=== PATIENT | female | born 1995 | race Caucasian/White ===

== ENCOUNTER 2018-12-03 01:40 | Emergency (ER) | payer MEDICAID, SELFPAY ==
[2018-12-03 01:42] VITALS: BP 156/119; PULSE 90; RESP 20; TEMP 36.8; O2SAT 95; BMI 38.9
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
--- NOTE | 2018-12-03 02:10 | ED.RN ---
I CALLED THE COUNSELING CENTER & NOTIFIED THE DISASTER RECOVERY COORDINATOR THAT THIS PT IS READY TO BE EVALUATED BY CRISIS. SHE STATED SHE WILL LET AMADO FROM [facility] KNOW.
--- NOTE | 2018-12-03 02:11 | ED.RN ---
DR. HAWKINS SAID PATIENT IS NOT ACTIVELY SUICIDAL AND DOES NOT REQUIRE A SITTER. HE IS GOING TO CONTACT CRISIS.
--- NOTE | 2018-12-03 02:13 | ED.RN ---
AMADO FROM [facility] IS ON HER WAY TO SEE THIS PT NOW.
--- NOTE | 2018-12-03 03:13 | ED.RN ---
AMADO FROM [facility] IS HERE TO SEE THIS PT.
[2018-12-03 04:01] VITALS: BP 113/58; PULSE 81; RESP 18; O2SAT 100
--- NOTE | 2018-12-03 04:02 | ED.RN ---
The crisis counselor released patient to go home with a safety plan. Discharge instructions given prior to discharge.
== END 2018-12-03 04:03 | disposition home or self-care (01) ==
PROVIDERS: Emergency Provider Emergency Medicine
DX: F32.9 Major depressive disorder, single episode, unspecified (principal); F43.12 Post-traumatic stress disorder, chronic; F17.200 Nicotine dependence, unspecified, uncomplicated
CPT/HCPCS: 99283

== ENCOUNTER → 2019-04-02 10:39 | Outpatient (CLI) | payer MEDICAID, SELFPAY ==
[2019-03-31 08:11] VITALS: BMI 39.0
--- NOTE | 2019-04-02 10:44 | RAD_ITS ---
STUDY: X-RAY - LUMBAR SPINE REASON FOR EXAM: Female, 23 years old. Back pain with right leg numbness TECHNIQUE: 5 view(s) of the lumbar spine were obtained. COMPARISON: None FINDINGS: Normal lumbar lordosis. There is no substantial scoliosis. There is a normal alignment of the vertebrae. Normal vertebral bodies and endplates. Normal disc space heights. There is no demonstrated fracture. There is no demonstrated spondylolysis of the pars interarticulares. The soft tissue structures are unremarkable. RAD/L/S Spine Min 4 Views IMPRESSION: Normal x-ray examination of the lumbar spine. Electronically Signed: Edmundo Slater MD (Brooks) at 15:23 EST , Service support ,
== END ==
PROVIDERS: Family Provider Internal Medicine; PCP Internal Medicine; Referring Provider Internal Medicine; Visit Provider Internal Medicine
DX: M54.16 Radiculopathy, lumbar region (principal)
CPT/HCPCS: 72110

== ENCOUNTER → 2019-06-02 10:13 | Outpatient (CLI) | payer MEDICAID, SELFPAY ==
[2019-06-02 09:37] VITALS: BMI 39.0
[2019-06-02 12:17] LABS: Absolute Lymphocyte Count 2.69 X10^3/uL (0.83-4.51); Absolute Neutrophil Count 9.2 X10^3/uL (2.0-7.7); Basophil# 0.05 X10^3/uL; Basophil% 0.4 % (0-1); Eosinophil# 0.07 X10^3/uL; Eosinophils% 0.5 % (0-5); Hematocrit 39.9 % (37-47); Hemoglobin 12.8 g/dL (12.0-15.0); Lymphocyte # 2.69 X10^3/ul (4.0); Lymphocyte % 20.9 % (19-41); Mean Corp Hgb Conc 32.1 g/dL (32-36); Mean Corpuscular Hgb 28.1 pg (27.0-32.0); Mean Corpuscular Volume 87.7 fL (81-99); Mean Platelet Vol. 10.1 fl (6.2-12.0); Monocyte# 0.82 X10^3/uL; Monocyte% 6.4 % (0-10); NRBC Flagged by Analyzer 0 % (0-5); Neutrophil # 9.17 X10^3/uL (2.7-7.7); Neutrophil % 71.4 % (47-70); Platelet Count 386 K/mm3 (150-450); RBC Distribution Width CV 12.8 % (11.6-14.6); RBC Distribution Width SD 41.2 fl (35.1-43.9); Red Blood Count 4.55 M/mm3 (4.2-5.4); White Blood Count 12.9 K/mm3 (4.4-11.0)
[2019-06-02 12:34] LABS: AST(SGOT) 20 U/L (15-37); Alanine Aminotransfer ALT/SGPT 40 U/L (13-56); Albumin, Serum 4.3 g/dL (3.2-5.0); Alkaline Phosphatase 74 U/L (45-117); Anion Gap 6 (5-15); BUN 19 mg/dL (7-18); BUN/Creat Ratio 19.5 RATIO (10-20); Calcium,Total 9.6 mg/dL (8.5-10.1); Chloride 104 mmol/L (98-107); Creatinine, Serum 0.97 mg/dL (0.55-1.02); EST Glomerular Filtration Rate 75 mL/min (>60); Est Glom Filt Rate - Afr Amer 91 mL/min (>60); Globulin 4.4 g/dL (2.2-4.2); Glucose 88 mg/dL (74-106); Potassium 3.6 mmol/L (3.5-5.1); Protein, Total 8.7 g/dL (6.4-8.2); Sodium Level 135 mmol/L (136-145)
== END ==
PROVIDERS: PCP Internal Medicine; Referring Provider Internal Medicine; Visit Provider Internal Medicine
DX: E28.2 Polycystic ovarian syndrome (principal)
CPT/HCPCS: 36415; 80053; 85025

== ENCOUNTER 2019-06-09 17:34 | Emergency (ER) | payer MEDICAID, SELFPAY ==
[2019-06-09 09:34] VITALS: BMI 40.0
[2019-06-09 17:34] VITALS: BP 142/101; PULSE 113; RESP 28; TEMP 36.8; O2SAT 100; BMI 39.9
[2019-06-09 18:43] LABS: Absolute Lymphocyte Count 4.66 X10^3/uL (0.83-4.51); Absolute Neutrophil Count 8.8 X10^3/uL (2.0-7.7); Basophil# 0.06 X10^3/uL; Basophil% 0.4 % (0-1); Eosinophil# 0.15 X10^3/uL; Hematocrit 37.3 % (37-47); Hemoglobin 12.6 g/dL (12.0-15.0); Lymphocyte # 4.66 X10^3/ul (4.0); Lymphocyte % 30.8 % (19-41); Mean Corp Hgb Conc 33.8 g/dL (32-36); Mean Corpuscular Volume 85.7 fL (81-99); Mean Platelet Vol. 9.6 fl (6.2-12.0); Monocyte# 1.44 X10^3/uL; Monocyte% 9.5 % (0-10); NRBC Flagged by Analyzer 0 % (0-5); Neutrophil # 8.75 X10^3/uL (2.7-7.7); Neutrophil % 57.9 % (47-70); POSITIVE MORPHOLOGY YES; Platelet Count 376 K/mm3 (150-450); RBC Distribution Width CV 12.8 % (11.6-14.6); RBC Distribution Width SD 39.7 fl (35.1-43.9); Red Blood Count 4.35 M/mm3 (4.2-5.4); White Blood Count 15.1 K/mm3 (4.4-11.0)
[2019-06-09 18:51] LABS: Differential Indicated SCAN CRITERIA MET
[2019-06-09 18:53] LABS: Anion Gap 8 (5-15); BUN 22 mg/dL (7-18); Calcium,Total 9.9 mg/dL (8.5-10.1); Chloride 106 mmol/L (98-107); Creatinine, Serum 1.05 mg/dL (0.55-1.02); EST Glomerular Filtration Rate 69 mL/min (>60); Est Glom Filt Rate - Afr Amer 83 mL/min (>60); Estimated Creatinine Clearance 78.01 ml/min; Glucose 87 mg/dL (74-106); Potassium 3.5 mmol/L (3.5-5.1); Sodium Level 138 mmol/L (136-145)
[2019-06-09 19:18] LABS: Differential Comment SCANNED
--- NOTE | 2019-06-09 19:22 | ED.DCSUM_ITS ---
History of Present Illness Chief Complaint: Upper Extremity Injury Detail of Chief Complaint: Paresthesias stocking glove distribution mid forearm and mid leg bilaterall Informant: Patient Onset: Weeks Context: Sudden Onset Timing: Intermittent Quality: Pulling sensation Location: Right and left upper and lower extremity distal Current Severity: Mild Maximum Severity: Moderate Worsened by: Nothing Relieved by: Nothing Associated Symptoms: Numbness Narrative: Patient is a 23-year-old woman with history of need for service dog. She presents with numbness in a stocking glove distribution mid right and left forearm to her fingertips and mid and left right calf to her toes. She denies perioral numbness. Denies headache. Denies visual, ocular auditory symptoms. No trouble speech or swallowing. Denies cardiac respiratory symptoms. She denies GI symptoms. She denies symptoms. She denies myalgias or arthralgias. She denies joint swelling. Review of old records indicates no history of MS. Prior similar symptoms: No Recent Illness/Hospitalization: No - Past Medical History (1) Segmental and somatic dysfunction of lumbar region Status: Acute (2) Segmental and somatic dysfunction of thoracic region Status: Acute (3) Frequent headaches Status: Chronic (4) Lumbar radiculopathy Status: Chronic (5) PTSD (post-traumatic stress disorder) Status: Chronic (6) Polycystic ovarian disease Status: Chronic Past Medical History - Allergies and Home Meds Allergies/Adverse Reactions: Allergies Bee Stings Allergy (Mild, Uncoded 06/09/19 17:37) Swelling throat, Hives Primary Care Physician: Gaurav Osuna MD [Primary Care Provider] - Surgical History: noncontributory Lives: Alone Smoking Status: Current every day smoker Alcohol: None Drugs: None Review of Systems General: Denies: Chills, Fever, Sweats Eyes: Denies: Visual changes - bilaterally, Blurred Vision - bilaterally, Diplopia ENT: Denies: Bilateral ear pain, Rhinorrhea, Sore throat Cardiovascular: Denies: Chest pain, Palpitations Respiratory: Denies: Dyspnea, Cough, Dyspnea on exertion Gastrointestinal: Denies: Abdominal pain, Nausea, Vomiting, Diarrhea, Melena, Hematochezia Genitourinary: Denies: Dysuria, Hematuria, Frequency Musculoskeletal: Denies: Myalgias, Arthralgias, Neck pain, Back pain, Swelling, Extremity Pain Skin: Denies: Rash, Wounds Neurological: Reports: Parasthesia, Numbness. Denies: Headache, Weakness Psych: Reports: Anxiety Hematologic: Denies: Easy bruising, Easy bleeding Physical Exam Vital Signs/Narrative: Vital Signs Temp Pulse Resp BP Pulse Ox 06/09/19 17:34 98.3 F 113 H 28 H 142/101 H 100 Inital Vital Signs reviewed: Yes General: Well nourished, Well developed, Obese, No Acute Distress Head: Normocephalic, Atraumatic Eyes: Perrl, EOMI ENT: Moist mucous membranes, No rhinorrhea Neck: Supple, Nontender Cardiovascular: Regular rate, Regular rhythm, No murmurs, Normal S1, Normal S2 Respiratory: No distress, CTA bilaterally, Chest nontender Abdomen: Soft, Nontender, Nondistended, Normal bowel sounds Back: Nontender, Normal Inspection Extremities: Nontender, No edema Skin: Normal color, No rash, No Trauma. Negative for: Cyanosis, Diaphoresis, Jaundice, Rash Neurological: Alert, Oriented x3, Cranial nerves II-XII grossly intact, Normal Strength, Normal Sensation, Normal DTR, Normal Gait Psychological: Depressed Diagnostic/Tx/Re-eval Laboratory Results 06/09/19 06/09/19 18:27 18:27 WBC 15.1 H RBC 4.35 Hgb 12.6 Hct 37.3 MCV 85.7 MCH 29.0 MCHC 33.8 RDW Std Deviation 39.7 RDW Coeff of Jeff 12.8 Plt Count 376 MPV 9.6 Immature Gran % (Auto) 0.400 Neut % (Auto) 57.9 Lymph % (Auto) 30.8 Burnett % (Auto) 9.5 Eos % (Auto) 1.0 Baso % (Auto) 0.4 Absolute Neuts (auto) 8.8 H Absolute Lymphs (auto) 4.66 H Nucleated RBC % 0 Differential Comment SCANNED Sodium 138 Potassium 3.5 Chloride 106 Carbon Dioxide 24.0 Anion Gap 8 BUN 22 H Creatinine 1.05 H Estim Creat Clear Calc 78.01 Est GFR (MDRD) Af Amer 83 Est GFR (MDRD) Non-Af 69 BUN/Creatinine Ratio 21.0 H Glucose 87 Calcium 9.9 White count is elevated with normal differential. This is a nonspecific marker. Electrolyte panel is unremarkable. Creatinine is slightly elevated 1.05. ED Disposition - Plan for ED Patient: Disposition: Home or Assisted Living Diagnosis: Bilateral leg paresthesia, Paresthesia of hand, bilateral Instructions: Paraesthesias Referrals: Gaurav Osuna MD [Primary Care Provider] - 3-5 Days
[2019-06-09 19:55] VITALS: BP 129/78; PULSE 84; RESP 16; O2SAT 100
--- NOTE | 2019-06-09 19:55 | ED.RN ---
THIS NURSE REVIEWED D/C INSTRUCTIONS WITH PT. PT VERBALIZED UNDERSTANDING OF INSTRUCTIONS. IV D/C. IV CATHETER INTACT. PT TOLERATED WELL. PT DENIES FURTHER NEEDS OR QUESTIONS AT THIS TIME.
== END 2019-06-09 19:56 | disposition home or self-care (01) ==
PROVIDERS: Emergency Provider Emergency Medicine; PCP Internal Medicine
DX: R20.2 Paresthesia of skin (principal); E66.9 Obesity, unspecified; E28.2 Polycystic ovarian syndrome; F43.10 Post-traumatic stress disorder, unspecified; M99.02 Segmental and somatic dysfunction of thoracic region; M99.03 Segmental and somatic dysfunction of lumbar region; Z79.899 Other long term (current) drug therapy; F17.200 Nicotine dependence, unspecified, uncomplicated
CPT/HCPCS: 80048; 85025; 99283; A4216

== ENCOUNTER → 2019-06-16 09:47 | Outpatient (CLI) | payer MEDICAID, SELFPAY ==
[2019-06-09 17:34] VITALS: BMI 39.9
--- NOTE | 2019-06-16 09:50 | RAD_ITS ---
STUDY: X-RAY - LEFT WRIST REASON FOR EXAM: Female, 23 years old. left wrist pain and numbness x 1 month TECHNIQUE: 3 view(s) of the wrist were obtained. COMPARISON: None. FINDINGS: Normal visualized distal radius and ulna. Normal radiocarpal articulation. There is a negative ulnar variance. Normal carpal bones. Normal carpal articulations. Normal carpometacarpal articulation of the thumb. Normal second through fifth carpometacarpal articulations. Normal visualized metacarpal bones. The soft tissue structures are unremarkable. RAD/Wrist min 3 Views IMPRESSION: Negative ulnar variance without subcortical sclerosis or scalloping of the radius. Otherwise, normal wrist. Electronically Signed: Trupti Scales MD at 0:04 EST , Service support ,
[2019-06-16 12:38] LABS: CRP 2.96 mg/L (0.0-3.0)
[2019-06-16 15:16] LABS: Rheumatoid Factor < 10.0 IU/mL (<15)
== END ==
PROVIDERS: PCP Internal Medicine; Referring Provider Internal Medicine; Visit Provider Internal Medicine
DX: M25.532 Pain in left wrist (principal); D72.829 Elevated white blood cell count, unspecified; M19.90 Unspecified osteoarthritis, unspecified site
CPT/HCPCS: 36415; 73110; 86140; 86431

== ENCOUNTER 2019-10-16 11:13 | Emergency (ER) | payer MEDICAID, SELFPAY ==
[2019-07-07 09:14] VITALS: BMI 39.9
[2019-10-16 11:14] VITALS: BP 151/111; PULSE 110; RESP 17; TEMP 36.6; O2SAT 97; BMI 39.6
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
--- NOTE | 2019-10-16 11:34 | ED.DCSUM_ITS ---
- ER Visit Summary Date of Service: 10/16/19 Chief Complaint: [Injury to left ankle] History of Present Illness: The patient is a 24 F [presents to the emergency department complaint of left ankle pain that started 2 weeks ago. Patient states that she stood up to walk and when she stepped on her left foot she developed sudden onset of severe pain in her left ankle. She has had pain since that time. She states the pain was okay for a time but became worse over last couple days. She is not sure if she overdid it. Patient has no medical history otherwise.] Physical Examination: [Ankle-patient has diffuse tenderness over the lateral malleolus. No significant swelling. There is no ecchymosis or bruising. There is no pain at the proximal fibular head. There is no pain at the base of the fifth metatarsal. She is neurovascular intact distally.] Test Results: [Rays of the left ankle obtained were normal as read by myself] Emergency Department Course and Treatment: [She was given air splint and crutches.] Treatment Plan: [Advised to follow-up with primary care physician in 5 to 7 days.] Disposition: [Discharged home in stable condition] Impression: [Left ankle sprain] This note was generated with [employer] dictation software. It may contain incorrect words, spelling, and punctuation that were not noted in review of the chart prior to signing ED Disposition - Plan for ED Patient: Instructions: ED Sprain Ankle W X Ray Referrals: Gaurav Osuna MD [Primary Care Provider] - 5-7 Days
== END 2019-10-16 11:52 | disposition home or self-care (01) ==
LOC: ED 11:47
PROVIDERS: Emergency Provider Emergency Medicine; PCP Internal Medicine
DX: S93.402A Sprain of unspecified ligament of left ankle, initial encounter (principal); X58.XXXA Exposure to other specified factors, initial encounter; Y93.9 Activity, unspecified; Y92.9 Unspecified place or not applicable; Z72.0 Tobacco use
CPT/HCPCS: 73610; 99284

== ENCOUNTER 2019-12-05 16:01 | Emergency (ER) | payer MEDICAID, SELFPAY ==
[2019-11-30 16:36] VITALS: BMI 39.6
[2019-12-05 16:03] VITALS: BP 149/111; PULSE 105; RESP 18; TEMP 36.6; O2SAT 98; BMI 41.9
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
[2019-12-05] MEDS: HYDROcodone Bitartrate/Apap 5/325 Tablet PO (19:26)
[2019-12-05] MEDS: Diphth,Pertuss(Acell),Tet Vac 0.5 ML Vial IM (19:27)
[2019-12-05 19:33] VITALS: BP 144/97; PULSE 78; RESP 18; O2SAT 99
== END 2019-12-05 19:35 | disposition home or self-care (01) ==
PROVIDERS: Emergency Provider Emergency Medicine; PCP Internal Medicine
DX: S83.91XA Sprain of unspecified site of right knee, initial encounter (principal); S00.81XA Abrasion of other part of head, initial encounter; S50.02XA Contusion of left elbow, initial encounter; S50.312A Abrasion of left elbow, initial encounter; S80.211A Abrasion, right knee, initial encounter; V19.9XXA Pedal cyclist (driver) (passenger) injured in unspecified traffic accident, initial encounter; Y93.55 Activity, bike riding; Y92.9 Unspecified place or not applicable; E28.2 Polycystic ovarian syndrome; F43.10 Post-traumatic stress disorder, unspecified; F17.200 Nicotine dependence, unspecified, uncomplicated
CPT/HCPCS: 73080; 73562; 90471; 90715; 99283

== ENCOUNTER → 2020-02-01 | Outpatient (CLI) | payer MEDICAID, SELFPAY ==
[2020-02-01 14:49] VITALS: BMI 41.9
[2020-02-01 15:02] LABS: Mucous, Urine 0 SEEN /hpf (<or=2+)
[2020-02-01 17:50] LABS: Color, Urine Yellow (Yellow); Glucose, Dipstick Normal (Normal); Ketone-Dipstick Negative (Negative); Leukocyte Esterase-Dipstick 25 /ul (Negative); Nitrite-Dipstick Negative (Negative); Occult Blood-Urine 250 /ul (Negative); Protein-Dipstick 15 mg/dl (Negative); Specific Gravity, Urine 1.015 (1.002-1.030); Urine Bilirubin Dipstick Negative (Negative); Urine Clarity Clear (Clear); Urine Urobilinogen Normal (Normal)
[2020-02-01 19:03] LABS: Amorphous Sediment 2+ PHOS; Bacteria RARE /hpf (None Seen); Red Blood Cells-Urine 10-25 SEEN /hpf (0-5); Squamous Epithelial Cells - UA 0-5 SEEN /hpf (5-10); White Blood Cells 0-5 SEEN /hpf (0-5)
== END | disposition home or self-care (01) ==
LOC: LABSPEC 15:01
PROVIDERS: PCP Internal Medicine; Referring Provider Internal Medicine; Visit Provider Internal Medicine
DX: R30.0 Dysuria (principal)
CPT/HCPCS: 81001; 87086; 87088

== ENCOUNTER → 2020-06-30 | Outpatient (CLI) | payer MEDICAID, SELFPAY ==
[2020-06-29 18:07] VITALS: BMI 35.2
[2020-06-30 09:40] LABS: Bacteria 0 SEEN /hpf (None Seen); Mucous, Urine 0 SEEN /hpf (<or=2+); Red Blood Cells-Urine 0 SEEN /hpf (0-5)
[2020-06-30 12:17] LABS: Color, Urine Yellow (Yellow); Glucose, Dipstick Normal (Normal); Ketone-Dipstick 5 mg/dl (Negative); Leukocyte Esterase-Dipstick 500 /ul (Negative); Nitrite-Dipstick Positive (Negative); Occult Blood-Urine 50 /ul (Negative); Protein-Dipstick 15 mg/dl (Negative); Specific Gravity, Urine 1.025 (1.002-1.030); Urine Bilirubin Dipstick Negative (Negative); Urine Clarity Cloudy (Clear); Urine Urobilinogen 1 mg/dl (Normal)
[2020-06-30 12:30] LABS: Squamous Epithelial Cells - UA 10-25 SEEN /hpf (5-10); White Blood Cells 5-10 SEEN /hpf (0-5)
[2020-06-30 12:38] LABS: Calcium Oxalate Crystals Ur 4+ /hpf (<or=2+)
[2020-06-30 12:39] LABS: Coarse Granular Cast 0-5 SEEN /lpf (0-5 /lpf)
[2020-06-30 13:58] LABS: Chlamydia Trachomatis by PCR Negative (Negative); Neisserai gonorrhoeae by PCR Negative (Negative); Probe Check PASS; Sample Adequacy Control PASS; Specimen Processing Control PASS; Trichomonas Vag DNA by PCR Negative (Negative)
== END | disposition home or self-care (01) ==
LOC: LABSPEC 09:39
PROVIDERS: PCP Internal Medicine; Referring Provider Internal Medicine; Visit Provider Internal Medicine
DX: R30.0 Dysuria (principal); Z20.2 Contact with and (suspected) exposure to infections with a predominantly sexual mode of transmission
CPT/HCPCS: 81001; 87077; 87086; 87088; 87186; 87491; 87591; 87661

== ENCOUNTER 2021-01-29 18:02 | Emergency (ER) | payer MEDICAID, SELFPAY ==
[2021-01-29 18:03] VITALS: BP 116/87; PULSE 81; RESP 18; TEMP 36.1; O2SAT 97; BMI 165.6
--- NOTE | 2021-01-29 19:55 | CM.ED ---
SOCIAL WORK Referral Source: Triage Nurse, Meena Reason for Consult: Resources- homeless Met with patient in hallway room 2. Introduced role and reason for referral. Patient is currently homeless and believes to have poison oak-rash. Patient has been in contact with a friend who is providing her a place to stay. Patient ride will arrive at hospital at 8:30p. Patient denies any needs at this time. Riddhi Castillo, BRAINER, [employer] WRESTLER
--- NOTE | 2021-01-29 20:13 | EX.ED.DYSGE1 ---
HPI History of Present Illness Chief Complaint: Rash Narrative Narrative: 25-year-old female presenting with concern for poison babar on her fingers. She is currently homeless and living in the [facility]. She feels like she has come in contact with us. She does have vesicles on her fingers and she states that she has been trying Benadryl and calamine lotion. She states she also poured bleach on her hands and this did help short-term. She states she currently does not have insurance and cannot afford her prescription but requests a shot of steroids in order to help bridge her until she can see her primary care. [facility] Medical History Back problem Frequent headaches Polycystic ovarian disease PTSD (post-traumatic stress disorder) Home Medications NK 01/29/21 [History Last Taken Unknown] Allergy/AdvReac Type Severity Reaction Status Date / Time Bee Stings Allergy Mild Swelling Uncoded 01/29/21 19:29 throat, Hives Family History Other Anxiety Arthritis Depression Diabetes Mental disorder Myocardial infarction Suicide attempt Surgical History History of tonsillectomy Social History Smoking Status: Current every day smoker tobacco type: cigarettes quit status: considering quitting counseling given: provider counseling alcohol intake: never substance use type: marijuana what type of physical activity do you participate in: walking frequency: 3-4 times per week ROS ROS ED Constitutional Constitutional ED: Denies chills or fever(s) Eyes Eyes: Denies blurry vision or diplopia ENT ENT ED: Denies rhinorrhea or sore throat Cardiovascular Cardiovascular: Denies chest pain or palpitations Respiratory/Chest Respiratory/Chest: Denies cough, dyspnea or sputum Gastrointestinal Gastrointestinal: Denies abdominal pain, nausea or vomiting Genitourinary Genitourinary ED: Denies dysuria or hematuria Musculoskeletal Musculoskeletal: Denies arthralgias or myalgias Integumentary Reports rash Neurologic Neurologic: Denies headache(s) or paresthesias EXAM Physical Exam Const Vital Signs: 01/29/21 18:03 Temperature 96.9 F L Temperature Source Temporal Pulse Rate 81 Respiratory Rate 18 Blood Pressure 116/87 H Blood Pressure Mean 96 Pulse Ox 97 Oxygen Delivery Method Room Air Positive well nourished General Appearance ED: NAD HEENT Reports moist mucous membranes Negative for trauma Eyes PERRL and EOMs intact bilaterally Resp normal respiratory effort and clear to auscultation bilaterally Cardio regular rate and regular rhythm Neuro oriented x3 and CN's II-XII intact bilaterally Sensorium / Orientation: alert Psych mental status grossly normal Psych Narrative: Erythematous vesicular rash on the fingertips. Inconsistent with cellulitic changes. MDM MDM MDM Narrative Medical decision making narrative: Patient presenting with concern for poison babar dermatitis. The rash on her fingertips does appear to be consistent with this. Patient does not have insurance and cannot afford steroids on an outpatient basis and requests a shot of Kenalog which is provided. She states she will follow up with her PCP when she can afford this and when he has availability. Patient to return precautions. Patient stable for discharge. Pression: 1. Poison babar dermatitis Discharge Plan Triage Chief Complaint: Rash ED Provider: Rl Hand Dx/Rx/DC Orders Instructions: ED Poison [place] Rash Prescriptions: No Action NK RF: 0 Primary Care Provider: Gaurav Osuna Referrals: Gaurav Osuna MD [Primary Care Provider] - Disposition Disposition: Home, Self Care Discharge Date/Time: 01/29/21 20:25
[2021-01-29] MEDS: Triamcinolone Acetonide 40 MG/ML Vial IM (20:25)
== END 2021-01-29 20:25 | disposition home or self-care (01) ==
PROVIDERS: Emergency Provider Student in an Organized Health Care Education/Training Program; PCP Internal Medicine
DX: L23.7 Allergic contact dermatitis due to plants, except food (principal); E28.2 Polycystic ovarian syndrome; F43.10 Post-traumatic stress disorder, unspecified; Z59.0 Homelessness; F17.210 Nicotine dependence, cigarettes, uncomplicated
CPT/HCPCS: 96372; 99282

== ENCOUNTER 2022-11-06 14:38 | Emergency (ER) | payer MEDICAID, SELFPAY ==
[2022-11-06 14:39] VITALS: BP 135/88; PULSE 93; RESP 18; TEMP 36.3; O2SAT 100
[2022-11-06 14:53] VITALS: BMI 37.9
--- NOTE | 2022-11-06 15:09 | ED.VIS.BACK ---
HPI History of Present Illness Chief Complaint: Back Informant: patient Narrative Narrative: Patient states she has felt a subcutaneous cyst, which she is labeling and has never had any imaging or expert evaluation of this, and her right low back for the past 1.5 years. Is always been sore. For the last several days it is a lot more painful and the pain is radiating to the right, toward her hip, nothing down her leg, no fevers or chills, but she is seeking evaluation. PFSH PFSH Medical History Back problem Frequent headaches Polycystic ovarian disease PTSD (post-traumatic stress disorder) Home Medications naproxen 500 mg tablet (Naprosyn) 500 mg PO BID PRN pain #14 tabs 11/06/22 [Rx Last Taken Unknown] sulfamethoxazole 800 mg-trimethoprim 160 mg tablet (Bactrim DS) 1 tab PO Q12H #14 tabs 11/06/22 [Rx Last Taken Unknown] tramadol 50 mg tablet 50 mg PO Q6H PRN pain 3 days #12 tabs 11/06/22 [Rx Last Taken Unknown] Allergy/AdvReac Type Severity Reaction Status Date / Time venom-honey bee Allergy Severe THROAT Verified 11/29/21 14:38 SWELLING, HIVES bupropion [From Wellbutrin] AdvReac Mild Other Verified 11/06/22 14:41 Family History Other Anxiety Arthritis Depression Diabetes Mental disorder Myocardial infarction Suicide attempt Surgical History History of tonsillectomy Social History Smoking Status: Former smoker quit status: considering quitting counseling given: provider counseling alcohol intake: never substance use type: marijuana what type of physical activity do you participate in: walking frequency: 3-4 times per week ROS ROS ED Constitutional Constitutional ED: Denies chills or fever(s) Gastrointestinal Gastrointestinal: Denies abdominal pain, nausea or vomiting Musculoskeletal Musculoskeletal: Reports back pain; Denies extremity pain or neck pain Integumentary Reports as per HPI Neurologic Neurologic: Denies paresthesias or weakness EXAM Physical Exam Const Vital Signs: 11/06/22 14:39 Temperature 97.4 F L Temperature Source Temporal Pulse Rate 93 Respiratory Rate 18 Blood Pressure 135/88 H Blood Pressure Mean 103 Pulse Ox 100 Oxygen Delivery Method Room Air Back/Spine Back/Spine Narrative: Patient is tender right paraspinal lumbar soft tissues at a palpable deep subcutaneous nodule. Patient has been rubbing the overlying skin which is mildly erythematous, it blanches and is not indurated, no fluctuance. Extremity normal to inspection Extremity Narrative: FROM x 4 Neuro oriented x3 and no sensory deficits noted Sensorium / Orientation: alert Motor Exam: strength 5/5 throughout Psych mental status grossly normal Skin no rashes or lesions noted MDM MDM MDM Narrative Medical decision making narrative: Patient's obesity limits the exam here, this palpable nodule feels like it is very deep. My suspicion is that it could be a sebaceous cyst, however not able to rule out a solid soft tissue mass, she would need an MRI which certainly she does not need emergently. Since it is acutely worse and could be a sebaceous cyst that is infected, I told her that other than prescribing her pain medication, I could help by attempting needle aspiration of this, with or without locally injected anesthesia. She declines all of this, and would rather just have something for pain and follow-up with the surgeon which is who I would recommend following up with. I think it would be reasonable to treat her with some antibiotics to see if that helps this so does not get worse. She is comfortable with that plan. Discharge Plan Triage Chief Complaint: Back ED Provider: Waqar Mcintyre Dx/Rx/DC Orders Clinical Impression: Subcutaneous nodule of back Instructions: Epidermoid Cyst Infect Antibiotics Prescriptions: New tramadol 50 mg tablet 50 mg PO Q6H PRN (Reason: pain) 3 Days Qty: 12 0RF naproxen [Naprosyn] 500 mg tablet 500 mg PO BID PRN (Reason: pain) Qty: 14 0RF sulfamethoxazole-trimethoprim [Bactrim DS] 800-160 mg tablet 1 tab PO Q12H Qty: 14 0RF Primary Care Provider: Gaurav Osuna Referrals: Gaurav Osuna MD [Primary Care Provider] - Marco Akers MD [Med Staff - Active Staff] - As soon as possible Disposition Disposition: Home, Self Care
[2022-11-06 15:35] VITALS: RESP 18
== END 2022-11-06 15:44 | disposition home or self-care (01) ==
PROVIDERS: Emergency Provider Emergency Medicine; PCP Internal Medicine; Visit Provider Emergency Medicine
DX: R22.9 Localized swelling, mass and lump, unspecified (principal); Z87.891 Personal history of nicotine dependence
CPT/HCPCS: 99282

== ENCOUNTER 2023-04-08 17:15 | Emergency (ER) | payer SELFPAY ==
[2023-04-08 17:16] VITALS: BP 141/74; PULSE 94; RESP 18; TEMP 36.2; O2SAT 98; BMI 42.5
--- NOTE | 2023-04-08 17:18 | RAD_ITS ---
INDICATION: falll EXAMINATION/TECHNIQUE: X-RAY - LEFT XR Foot Min 3 Views 3 VIEWS COMPARISON: FINDINGS: No acute fracture or dislocation. No destructive bone changes. Joint spaces are well-maintained. Normal alignment. Soft tissues are unremarkable. No radiopaque foreign body or soft tissue gas. RAD/Foot min 3 Views IMPRESSION: Negative. Electronically Signed: Smiley Doyle MD at 18:04 EST Reading Location ID and State: [id number] / Tel , Service support ,
--- NOTE | 2023-04-08 18:01 | EDS_ITS ---
HPI <MOJGAN Negrete - Last Filed: 04/08/23 18:23> History of Present Illness Chief Complaint: Lower Extremity Injury Narrative Narrative: 27-year-old female injured her left foot 2 weeks ago while working at [employer]. There is a metal bar underneath some equipment in her left foot got stuck underneath it causing a crush type injury. She has swelling and pain and is able to ambulate but is concerned it is not getting better after 2 weeks. No weakness or paresthesias. PFS <MOJGAN Negrete - Last Filed: 04/08/23 18:23> [facility] Medical History (Updated 04/08/23 @ 18:07 by MOJGAN Negrete) Back problem Frequent headaches Polycystic ovarian disease PTSD (post-traumatic stress disorder) Home Medications
--- NOTE | 2023-04-08 18:01 | EX.ED.DYSGE1 ---
HPI <MOJGAN Negrete - Last Filed: 04/08/23 18:23> History of Present Illness Chief Complaint: Lower Extremity Injury Narrative Narrative: 27-year-old female injured her left foot 2 weeks ago while working at [employer]. There is a metal bar underneath some equipment in her left foot got stuck underneath it causing a crush type injury. She has swelling and pain and is able to ambulate but is concerned it is not getting better after 2 weeks. No weakness or paresthesias. PFSH <MOJGAN Negrete - Last Filed: 04/08/23 18:23> [facility] Medical History (Updated 04/08/23 @ 18:07 by MOJGAN Negrete) Back problem Frequent headaches Polycystic ovarian disease PTSD (post-traumatic stress disorder) Home Medications naproxen 500 mg tablet (Naprosyn) 500 mg PO BID PRN pain #14 tabs 11/06/22 [Rx Last Taken Unknown] sulfamethoxazole 800 mg-trimethoprim 160 mg tablet (Bactrim DS) 1 tab PO Q12H #14 tabs 11/06/22 [Rx Last Taken Unknown] tramadol 50 mg tablet 50 mg PO Q6H PRN pain 3 days #12 tabs 11/06/22 [Rx Last Taken Unknown] Allergy/AdvReac Type Severity Reaction Status Date / Time venom-honey bee Allergy Severe THROAT Verified 04/08/23 17:16 SWELLING, HIVES bupropion [From Wellbutrin] AdvReac Mild Other Verified 04/08/23 17:16 Family History Other Anxiety Arthritis Depression Diabetes Mental disorder Myocardial infarction Suicide attempt Surgical History History of tonsillectomy Social History Smoking Status: Former smoker quit status: considering quitting counseling given: provider counseling alcohol intake: never substance use type: marijuana what type of physical activity do you participate in: walking frequency: 3-4 times per week ROS <MOJGAN Negrete - Last Filed: 04/08/23 18:23> ROS ED ROS Narrative Neuro: Negative for motor/sensory dysfunction. Skin: Negative for wound. Musc: Positive for left foot pain, swelling, trauma. EXAM <MOJGAN Negrete - Last Filed: 04/08/23 18:23> Physical Exam Narrative Exam Narrative: CONST: Patient sitting in no acute distress. EYES: Normal inspection. NECK: Normal inspection. SKIN: Color normal, no rash, warm, dry, intact. EXTREMITIES: Bruising and tenderness over the left fourth and fifth metatarsals, no tenderness of the knee or ankle. Full range of motion of all joints, normal strength and sensation, 2+ DP pulse, brisk cap refill. NEURO: Oriented x4. PSYCH: Normal affect. Const Vital Signs: 04/08/23 17:16 04/08/23 18:43 Temperature 97.1 F L Temperature Source Temporal Pulse Rate 94 Respiratory Rate 18 14 Blood Pressure 141/74 H Blood Pressure Mean 96 Pulse Ox 98 Oxygen Delivery Method Room Air <Dr. Brian Martinez, - Last Filed: 04/08/23 23:02> Physical Exam Const Vital Signs: 04/08/23 17:16 04/08/23 18:43 Temperature 97.1 F L Temperature Source Temporal Pulse Rate 94 Respiratory Rate 18 14 Blood Pressure 141/74 H Blood Pressure Mean 96 Pulse Ox 98 Oxygen Delivery Method Room Air MDM <MOJGAN Negrete - Last Filed: 04/08/23 18:23> [facility] Narrative Medical decision making narrative: Patient injured her left foot 2 weeks ago. She has tenderness and bruising of the mid/lateral foot. No ankle tenderness. Full range of motion and neurovascularly intact. Differential includes foot contusion versus fracture. X-ray is negative for acute findings. I recommended RICE protocol and OTC pain relievers and she was discharged in stable condition. Radiography Diagnostic Testing: Clinical Impression(s) from Imaging Studies Foot X-Ray 04/08/23 17:18 IMPRESSION: Negative. Electronically Signed: Smiley Doyle MD at 18:04 EST Reading Location ID and State: [id number] / Tel , Service support , ED attending interpretation of left foot shows no fracture or dislocation. <Dr. Brian Martinez DO - Last Filed: 04/08/23 23:02> [facility] Radiography Diagnostic Testing: Clinical Impression(s) from Imaging Studies Foot X-Ray 04/08/23 17:18 IMPRESSION: Negative. Electronically Signed: Smiley Doyle MD at 18:04 EST , Treatment and Re-Evaluation :: ED attending note: I evaluated the patient in conjunction with the GERMAN. I agree with his/her statements and above findings. I have personally performed a face to face assessment of the patient and have reviewed the GERMAN Note. I performed a substantive portion of the visit including all aspects of the following. I personally saw the patient performed chart review, physical exam, reviewed labs, imaging (if obtained), and formulated a treatment and management plan. Brief history: 27-year-old female with concern for left foot injury Exam: Nursing triage notes reviewed, Vital signs reviewed Constitutional: please see mdm Extremities: No edema no obvious deformity Neuro: Intact sensation L1-S1 dermatomal distributions. Intact 5/5 strength in hip flexion (T12-L3). Knee extension (L2-L4). Ankle dorsiflexion (L4-L5). Ankle plantar flexion (S1). Great toe extension (L5). 2+ patellar and Achilles DTRs. Skin: No rno evidence of open fracture MDM/plan: Chief Complaint: Foot injury External records reviewed: No recent advanced imaging of the involved extremity Factors affecting care: None MDM narrative: Patient was hemodynamically stable, afebrile, nontoxic-appearing. Exam without evidence of deformity or open fracture. I considered the following differential diagnosis: X-ray rule out fracture dislocation X-ray was interpreted by myself showed no evidence of acute fracture or dislocation. Shared decision making: I will have a discussion with the patient and or visitors regarding risk/benefits of further testing or admission. They will be made aware of of the risk/benefits inherent in this decision they will be given the opportunity to voice understanding. Discharge Plan Triage Chief Complaint: Lower Extremity Injury ED Midlevel Provider: Alma Curtis ED Provider: Brian Martinez Dx/Rx/DC Orders Clinical Impression: Contusion of left foot Instructions: Bruises (Contusions) Prescriptions: No Action tramadol 50 mg tablet 50 mg PO Q6H PRN (Reason: pain) 3 Days Qty: 12 0RF naproxen [Naprosyn] 500 mg tablet 500 mg PO BID PRN (Reason: pain) Qty: 14 0RF sulfamethoxazole-trimethoprim [Bactrim DS] 800-160 mg tablet 1 tab PO Q12H Qty: 14 0RF Primary Care Provider: Gaurav Osuna Referrals: Gaurav Osuna MD [Primary Care Provider] - Activity Restrictions/Additional Instructions: Rest, ice, elevate your foot and take Tylenol or Motrin as needed. Follow-up with your primary care doctor if it is not improving. Disposition Disposition: Home, Self Care Discharge Date/Time: 04/08/23 18:44
[2023-04-08 18:43] VITALS: RESP 14
== END 2023-04-08 18:44 | disposition home or self-care (01) ==
LOC: ED 18:34
PROVIDERS: Emergency Provider Emergency Medicine; PCP Internal Medicine; Visit Provider Emergency Medicine
DX: S90.32XA Contusion of left foot, initial encounter (principal); Z87.891 Personal history of nicotine dependence; W23.1XXA Caught, crushed, jammed, or pinched between stationary objects, initial encounter; Y93.89 Activity, other specified; Y92.89 Other specified places as the place of occurrence of the external cause
CPT/HCPCS: 73630; 99282

== ENCOUNTER 2023-04-27 06:46 | Emergency (ER) | payer OTHER, SELFPAY ==
[2023-04-27 06:48] VITALS: BP 107/59; PULSE 110; RESP 19; TEMP 38.2; O2SAT 98; BMI 42.6
--- NOTE | 2023-04-27 07:06 | EX.ED.DYSGE1 ---
HPI History of Present Illness Chief Complaint: General Illness Detail of Chief Complaint: Fever and cough and sore throat Informant: patient Narrative Narrative: Patient presents with 2-day history of fever, cough, and sore throat. She complains of some bodyaches and pressure in her chest. Patient currently at a group home where another individual was known to have COVID. Patient believes she might have COVID or strep. She had her tonsils removed in the past. Patient has not taken any ibuprofen or Tylenol. PFSH PFS Medical History (Updated 04/27/23 @ 08:[address] Sally Coronado DO) Back problem Frequent headaches Polycystic ovarian disease PTSD (post-traumatic stress disorder) Home Medications NK 04/27/23 [History Last Taken Unknown] Allergy/AdvReac Type Severity Reaction Status Date / Time venom-honey bee Allergy Severe THROAT Verified 04/27/23 06:51 SWELLING, HIVES bupropion [From Wellbutrin] AdvReac Mild Other Verified 04/27/23 06:51 Family History Other Anxiety Arthritis Depression Diabetes Mental disorder Myocardial infarction Suicide attempt Surgical History History of tonsillectomy Social History Smoking Status: Former smoker quit status: considering quitting counseling given: provider counseling alcohol intake: never substance use type: marijuana what type of physical activity do you participate in: walking frequency: 3-4 times per week ROS ROS ED Review of Systems ROS Unobtainable: other Constitutional Constitutional ED: Reports fever(s) and lethargy; Denies chills, sweats or weight loss Eyes Eyes: Denies blurry vision, change in vision or diplopia ENT ENT ED: Reports sore throat; Denies rhinorrhea Cardiovascular Cardiovascular: Denies chest pain, orthopnea or racing heartbeat Respiratory/Chest Respiratory/Chest: Denies cough, dyspnea, dyspnea on exertion, orthopnea or sputum Gastrointestinal Gastrointestinal: Denies abdominal pain, diarrhea, nausea or vomiting Genitourinary Genitourinary ED: Denies dysuria, hematuria or urinary frequency Musculoskeletal Musculoskeletal: Denies arthralgias, back pain, myalgias or neck pain Integumentary Denies abscess, Abrasions or rash Neurologic Neurologic: Denies headache(s) or weakness Psychiatric Psychiatric: Denies anxiety, depression or suicidal thoughts Endocrine Endocrinology: Denies polydipsia, polyphagia or polyuria Hematologic/Lymphatic Hematologic/Lymphatic: Denies easy bleeding, easy bruising or lymphadenopathy Allergic/Immunologic Allergic/Immunologic ED: Denies mouth swelling, tongue swelling or urticaria EXAM Physical Exam Const Vital Signs: 04/27/23 06:48 04/27/23 06:50 Temperature 100.8 F H Temperature Source Oral Pulse Rate 110 H Respiratory Rate 19 H Respiratory Pattern Normal Blood Pressure 107/59 L Blood Pressure Mean 75 Pulse Ox 98 Oxygen Delivery Method Room Air Positive well nourished and well developed General Appearance ED: well developed and NAD HEENT Reports TM's clear and moist mucous membranes normocephalic and atraumatic; Negative for trauma or tenderness Tympanic Membrane ED: Yes TM's clear Eyes PERRL and EOMs intact bilaterally General Eye ED: Negative for pale conjunctiva or scleral icterus Neck no lymphadenopathy, supple and no JVD General: Negative for tenderness Chest Wall inspection of chest normal and palpation of chest normal Chest: Negative for tenderness Resp normal respiratory effort and clear to auscultation bilaterally Effort and Inspection: Negative for respiratory distress or pain with movement Auscultation: Negative for rhonchi, wheezes or diminished lung sounds Cardio regular rate, regular rhythm, S1 normal heart sound, S2 normal heart sound and no murmurs Peripheral Pulses: pulses 2+ throughout GI normal to inspection, nondistended, normoactive bowel sounds, soft to palpation, non-tender, non-distended and no masses Back/Spine no CVA tenderness and no thoracic nor lumbar tenderness Extremity normal to inspection General Extremety ED: Negative for edema General Extremity: Negative for edema Neuro oriented x3, CN's II-XII intact bilaterally, no sensory deficits noted and gait normal Sensorium / Orientation: awake, alert, oriented to person, oriented to place and oriented to time Motor Exam: strength 5/5 throughout and strength abnormal Psych mental status grossly normal Skin no rashes or lesions noted and no wounds MDM MDM MDM Narrative Medical decision making narrative: Patient presents with URI symptoms and recent exposure to COVID-19. Clinically she looks well. I did give her ibuprofen. COVID and flu testing was obtained which showed patient to be positive for COVID-19. Patient will be discharged home and recommended symptomatic relief of symptoms. Advised to follow-up with primary care physician as needed and to return if increased difficulty breathing or condition should worsen anyway. Lab Data Attestation: I reviewed the patient's lab results. Discharge Plan Triage Chief Complaint: General Illness ED Provider: Sally Coronado Dx/Rx/DC Orders Clinical Impression: COVID-19 Instructions: Caring for Someone Who Has COVID-19 Prescriptions: No Action NK Primary Care Provider: Gaurav Osuna Referrals: Gaurav Osuna MD [Primary Care Provider] - 5-7 Days Disposition Disposition: Home, Self Care Discharge Date/Time: 04/27/23 08:32
[2023-04-27] MEDS: Ibuprofen 400 MG Tablet 800 MG PO (07:09)
== END 2023-04-27 08:32 | disposition home or self-care (01) ==
PROVIDERS: Emergency Provider Emergency Medicine; PCP Internal Medicine; Visit Provider Emergency Medicine
DX: U07.1 COVID-19 (principal); Z87.891 Personal history of nicotine dependence
CPT/HCPCS: 87428; 99282

== ENCOUNTER 2023-05-02 10:12 | Emergency (ER) | payer MEDICAID, SELFPAY ==
[2023-05-02 10:13] VITALS: BP 144/86; PULSE 97; RESP 22; TEMP 35.6; O2SAT 98; BMI 42.8
--- NOTE | 2023-05-02 11:08 | EX.ED.DYSGE1 ---
HPI History of Present Illness Chief Complaint: Cough Informant: patient Narrative Narrative: 27-year-old female presenting to the emergency room with cough. Patient states that last Friday she felt ill on Friday was diagnosed with COVID-19. She states that she should have been read returning to work today but she continues to have intermittent fever. She notes continued cough with sputum production. 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 PFSH PFSH Medical History Back problem Frequent headaches Polycystic ovarian disease PTSD (post-traumatic stress disorder) Home Medications NK 04/27/23 [History Last Taken Unknown] Allergy/AdvReac Type Severity Reaction Status Date / Time venom-honey bee Allergy Severe THROAT Verified 04/27/23 06:51 SWELLING, HIVES bupropion [From Wellbutrin] AdvReac Mild Other Verified 04/27/23 06:51 Family History Other Anxiety Arthritis Depression Diabetes Mental disorder Myocardial infarction Suicide attempt Surgical History History of tonsillectomy Social History Smoking Status: Former smoker quit status: considering quitting counseling given: provider counseling alcohol intake: never substance use type: marijuana what type of physical activity do you participate in: walking frequency: 3-4 times per week ROS ROS ED Constitutional Constitutional ED: Reports chills and fever(s); Denies weight loss Eyes Eyes: Denies change in vision or diplopia ENT ENT ED: Reports rhinorrhea; Denies ear pain or sore throat Cardiovascular Cardiovascular: Denies chest pain, orthopnea, palpitations or racing heartbeat Respiratory/Chest Respiratory/Chest: Reports cough; Denies dyspnea or orthopnea Gastrointestinal Gastrointestinal: Denies abdominal pain, diarrhea, nausea or vomiting Genitourinary Genitourinary ED: Denies dysuria, hematuria or urinary frequency Musculoskeletal Musculoskeletal: Reports myalgias; Denies arthralgias or back pain Integumentary Denies abscess or rash Neurologic Neurologic: Denies headache(s) or weakness Psychiatric Psychiatric: Denies anxiety, depression, suicidal ideation or suicidal thoughts Endocrine Endocrinology: Denies polydipsia, polyphagia or polyuria Allergic/Immunologic Allergic/Immunologic ED: Denies mouth swelling, tongue swelling or urticaria EXAM Physical Exam Const Vital Signs: 05/02/23 10:13 05/02/23 10:50 Temperature 96.0 F L Temperature Source Temporal Pulse Rate 97 Respiratory Rate 22 H Respiratory Effort Short of Breath Respiratory Depth Normal Respiratory Pattern Normal Blood Pressure 144/86 H Blood Pressure Mean 105 Pulse Ox 98 Oxygen Delivery Method Room Air Positive well nourished, well developed and obese General Appearance ED: well developed Nutritional Appearance: obese HEENT Reports normocephalic, head/scalp atraumatic and moist mucous membranes HEENT Narrative: Mild turbinate congestion Eyes PERRL and EOMs intact bilaterally Neck no lymphadenopathy, supple and no JVD Resp normal respiratory effort and clear to auscultation bilaterally Resp Narrative: Moist cough occasionally productive lungs otherwise clear. Cardio regular rate, regular rhythm and no murmurs GI normal to inspection, nondistended, normoactive bowel sounds and non-tender Palpation: soft Back/Spine no CVA tenderness and normal ROM Extremity normal to inspection General Extremety ED: Negative for edema General Extremity: Negative for edema Neuro oriented x3 and CN's II-XII intact bilaterally Sensorium / Orientation: alert Motor Exam: strength 5/5 throughout Psych mental status grossly normal Mood & Affect: Negative for depressed or tearful Skin no rashes or lesions noted and no wounds MDM MDM MDM Narrative Medical decision making narrative: My independent interpretation of the two-view chest x-ray is no acute infiltrate. Clinically I think the patient still has COVID-19. Given the continued fever and cough would recommend continued isolation. I will write her a work note. Return if worsening or concerns Discharge Plan Triage Chief Complaint: Cough ED Provider: Everton Marquez Dx/Rx/DC Orders Prescriptions: No Action NK Primary Care Provider: Gaurav Osuna Referrals: Gaurav Osuna MD [Primary Care Provider] -
--- NOTE | 2023-05-02 11:12 | RAD_ITS ---
STUDY: X-RAY CHEST REASON FOR EXAM: Female, 27 years old. Cough TECHNIQUE: PA and lateral views of the chest. COMPARISON: None. FINDINGS: The lungs are clear and expanded. There is no demonstrated pleural abnormality. Normal size heart. Normal mediastinum and aniket. Normal visualized pulmonary arteries. Normal visualized aortic arch and descending thoracic aorta. Normal visualized thoracic spine. Normal visualized ribs, clavicles, and shoulders. There is no demonstrated abnormality of the visualized soft tissue structures of the upper abdomen. RAD/Chest PA and Lateral IMPRESSION: Normal x-ray examination of the chest. Electronically Signed: Lucas Davidson MD at 12:09 [facility] [[email or web address]] ,
[2023-05-02 11:56] VITALS: PULSE 89; RESP 18; O2SAT 98
== END 2023-05-02 11:57 | disposition home or self-care (01) ==
LOC: ED 11:01
PROVIDERS: Emergency Provider Emergency Medicine; PCP Internal Medicine; Visit Provider Emergency Medicine
DX: R05.9 Cough, unspecified (principal); R50.9 Fever, unspecified; E66.9 Obesity, unspecified; Z87.891 Personal history of nicotine dependence
CPT/HCPCS: 71046; 99282

== ENCOUNTER 2023-06-11 12:42 | Emergency (ER) | payer MEDICAID, SELFPAY ==
[2023-06-11 12:43] VITALS: BP 134/77; PULSE 124; RESP 20; TEMP 38.1; O2SAT 99; BMI 43.1
[2023-06-11 15:43] VITALS: RESP 17; O2SAT 99
--- NOTE | 2023-06-11 15:45 | EX.ED.VIS.UR ---
HPI HPI - URI History of Present Illness Chief Complaint: Cold Sx Detail of Chief Complaint: Cough of white phlegm for last 3 days. Subjective fever and chills. Informant: patient Onset/Context/Timing Onset: Days Context: Gradual Onset Timing: Continuous Current Severity: Mild Maximum Severity: Mild Associated Symptoms Associated Symptoms: Positive for Nasal Congestion, Myalgias and Productive Cough (White phlegm.) Narrative Narrative: 27-year-old healthy female history of PTSD. Said a productive cough of white phlegm for the last 3 days. Subjective fever and chills. Posttussive emesis. No diarrhea. No nausea abdominal pain. No dysuria. [facility] and said there has been other people there with URI symptoms. Prior similar symptoms: Yes Recent Illness/Hospitalization: No ROS ROS ED ROS Narrative Cough. Subjective fever and chills. Review of Systems ROS Unobtainable: Denies due to encephalopathy Constitutional Constitutional ED: Reports chills, fever(s) and subjective Eyes Eyes: Denies blurry vision ENT ENT ED: Denies ear pain Cardiovascular Cardiovascular: Denies chest pain Respiratory/Chest Respiratory/Chest: Reports cough; Denies dyspnea Gastrointestinal Gastrointestinal: Denies abdominal pain, constipation, diarrhea or melena Genitourinary Genitourinary ED: Denies dysuria or hematuria Musculoskeletal Musculoskeletal: Reports myalgias; Denies arthralgias, back pain or neck pain Integumentary Denies abscess or Abrasions Neurologic Neurologic: Denies headache(s) Psychiatric Psychiatric: Denies anxiety or depression Endocrine Endocrinology: Denies cold intolerance Hematologic/Lymphatic Hematologic/Lymphatic: Denies easy bleeding, easy bruising or lymphadenopathy Allergic/Immunologic Allergic/Immunologic ED: Denies mouth swelling, tongue swelling or urticaria [facility] Medical History (Updated 06/11/23 @ 16:[address] Juan Ferreira MD) Back problem Frequent headaches Polycystic ovarian disease PTSD (post-traumatic stress disorder) Home Medications NK 04/27/23 [History Last Taken Unknown] Allergy/AdvReac Type Severity Reaction Status Date / Time venom-honey bee Allergy Severe THROAT Verified 06/11/23 12:42 SWELLING, HIVES bupropion [From Wellbutrin] AdvReac Mild Other Verified 06/11/23 12:42 Family History Other Anxiety Arthritis Depression Diabetes Mental disorder Myocardial infarction Suicide attempt Surgical History History of tonsillectomy Social History Smoking Status: Former smoker quit status: considering quitting counseling given: provider counseling alcohol intake: never substance use type: marijuana what type of physical activity do you participate in: walking frequency: 3-4 times per week EXAM Physical Exam Narrative Exam Narrative: Well-appearing 27-year-old female. Vital signs stable she does have a low-grade fever 100.6. Pulse ox 9 9% on room air no signs hypoxia. She does not look septic or toxic. She is not distress. H EENT exam moist mucous membranes. Posterior pharynx normal. Prior tonsillectomy. TMs normal. Neck nontender no lymphadenopathy no meningismus. Lungs dry cough no rales, rhonchi or wheezing. Equal symmetrical. Heart tachycardic no murmur. Rate about 115. Chest wall nontender. Abdomen soft nontender. Moving all 4 extremities. Multiple tattoos. No rashes. Back nontender. Neurologically she is awake and alert with no focal motor deficits. Exam consistent with a viral syndrome. Const Vital Signs: 06/11/23 12:43 06/11/23 15:43 06/11/23 15:44 Temperature 100.6 F H Temperature Source Temporal Pulse Rate 124 H Respiratory Rate 20 H 17 Respiratory Effort Normal Non-Labored Respiratory Pattern Normal Blood Pressure 134/77 H Blood Pressure Mean 96 Pulse Ox 99 99 Oxygen Delivery Method Room Air Room Air Positive well nourished and well developed; Negative for cachectic or contractures General Appearance ED: well developed and NAD; Negative for cachectic, contractures, cyanotic, diaphoretic or pallor Nutritional Appearance: Negative for cachectic HEENT Reports moist mucous membranes; Denies dry mucous membranes normocephalic and atraumatic; Negative for scalp tenderness Face and Sinus: Negative for sinus tenderness Mouth ED: No dry mucous membranes Mouth: No dry mucous membranes Teeth and Gingiva: Negative for caries Throat: posterior oropharynx normal Eyes PERRL and EOMs intact bilaterally General Eye ED: Negative for pale conjunctiva or scleral icterus Neck no lymphadenopathy, supple, no meningeal signs and no JVD General: Negative for anterior neck swelling, lymphadenopathy or other Resp normal respiratory effort and clear to auscultation bilaterally Effort and Inspection: Negative for retractions Auscultation: Negative for rales, rhonchi or wheezes Cardio S1 normal heart sound, S2 normal heart sound and no murmurs Rate: tachycardic Rhythm: regular rhythm GI non-tender, non-distended and no masses Inspection: Negative for abdominal distention Auscultation: normoactive bowel sounds Palpation: soft; Negative for tender or guarding Back/Spine no CVA tenderness and normal ROM General Back: Negative for CVA tenderness Cervical Spine: Negative for cervical spine tenderness Thoracic Spine / Upper Back: Negative for thoracic spinal tenderness Lumbar Spine / Lower Back: Negative for lumbar spinal tenderness Sacrum: Negative for tenderness Extremity normal to inspection and full ROM General Extremety ED: Negative for cyanosis, tenderness or other findings General Extremity: Negative for cyanosis or other findings Neuro oriented x3 and CN's II-XII intact bilaterally Sensorium / Orientation: alert, oriented to person, oriented to place and oriented to time; Negative for orientation impaired, lethargic or stuporous Motor Exam: strength 5/5 throughout; Negative for general weakness or strength abnormal Psych mental status grossly normal Appearance: Negative for other Attitude: No agitated Mood & Affect: Negative for depressed, anxious or tearful Skin General Skin Exam: Negative for jaundice or pallor Lesions: no lesions Rashes: no rashes Trauma: Negative for abrasion MDM MDM MDM Narrative Medical decision making narrative: 27-year-old female URI symptoms I do not like she is a chest x-ray I do not hear any pneumonia. Show given Tylenol for her fever and COVID, flu RSV is being obtained. Repeat exam unchanged we discussed her influenza B diagnosis. Discharged home. Fluids and rest. Alternate Tylenol Motrin. Follow-up if not improving or return if worse. History & Record Review Discussion w/independent historian: Patient Additional record(s) reviewed:: Prior inpatient record, Prior outpatient record, Prior ED visit and Prior labs Lab Data Attestation: I reviewed the patient's lab results. Lab results narrative: Influenza B positive. COVID and RSV negative. Discharge Plan Triage Chief Complaint: Cold Sx ED Provider: Juan Ferreira Dx/Rx/DC Orders Clinical Impression: Influenza Instructions: ED Influenza (Adult) Prescriptions: No Action NK Primary Care Provider: Gaurav Osuna Referrals: Gaurav Osuna MD [Primary Care Provider] - 1 Week if not improving Activity Restrictions/Additional Instructions: Plenty of fluids and rest. Motrin and Tylenol for fever and body aches. He should progressively improve over the next 3 to 5 days if not improving follow-up with your doctor. Disposition Disposition: Home, Self Care
[2023-06-11] MEDS: Acetaminophen 500 MG Tablet 1000 MG PO (16:13)
== END 2023-06-11 16:52 | disposition home or self-care (01) ==
PROVIDERS: Emergency Provider Emergency Medicine; PCP Internal Medicine; Visit Provider Emergency Medicine
DX: J10.1 Influenza due to other identified influenza virus with other respiratory manifestations (principal); Z87.891 Personal history of nicotine dependence
CPT/HCPCS: 87631; 94760; 99282

== ENCOUNTER 2023-06-30 21:46 | Emergency (ER) | payer MEDICAID, SELFPAY ==
[2023-06-30 21:47] VITALS: BP 116/102; PULSE 95; RESP 18; TEMP 36.4; O2SAT 100; BMI 43.0
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
--- NOTE | 2023-06-30 22:14 | RAD_ITS ---
EXAM: XR LEFT TIBIA AND FIBULA, 2 VIEWS CLINICAL INDICATION: Injury/Pain TECHNIQUE: Frontal and lateral views of the left tibia and fibula. COMPARISON: No relevant prior studies available. FINDINGS: BONES/JOINTS: Unremarkable. No acute fracture. No subluxation. Normal alignment. Preservation of the joint space. No sclerotic or destructive changes observed. SOFT TISSUES: Unremarkable. No soft tissue swelling or gas. No radiopaque foreign body. RAD/Tibia & Fibula 2 Views IMPRESSION: Negative left tibia and fibula x-rays. Electronically Signed: Rosaels Martinez MD at 23:01 EST ,
[2023-06-30] MEDS: HYDROcodone Bitartrate/Apap 5/325 Tablet PO (22:17)
[2023-06-30 22:32] VITALS: BP 120/90; PULSE 84; RESP 18; TEMP 36.3; O2SAT 98
--- OUTSIDE RECORDS SUMMARY | 2023-06-30 22:32 | XMS RPT_ITS | CCD ---
Author Name Unknown Address [address] [place] [address] Organization [facility] Care Team Providers Care Veterinary Medical Officer Name Role Phone Provider, None Unavailable Unavailable Leigh, Eris Unavailable Unavailable Leigh, Eris Unavailable Unavailable Leigh, Eris Unavailable Unavailable Leigh, Eris Unavailable Unavailable Provider, None Unavailable Unavailable Dayne, Lula Unavailable Unavailable Dayne, Lula Unavailable Unavailable NONE, XXXX Unavailable Unavailable NONE, XXXX Unavailable Unavailable Hajdari, Astrit H Unavailable Unavailable Hajdari, Astrit H Unavailable Unavailable Hajdari, Astrit H Unavailable Unavailable Hajdari, Astrit H Unavailable Unavailable May, Shen Unavailable Unavailable May, Shen Unavailable Unavailable Dayne, Lula Unavailable Unavailable Dayne, Lula Unavailable Unavailable WESLEY SANTOYO MD Attending Unavailable WESLEY SANTOYO MD Primary Care Unavailable WESLEY SANTOYO MD Admitting Unavailable Unavailable Primary Care Provider Unavailabl e SELF Referring Unavailable SON RODNEY Referring Unavailable Allergies Allergy Classification Reported Allergen(s) Allergy Type Date of Onset Reaction(s) Facility (1 source) No Known Medication Allergies; Translations: [No Known Medication Allergies] Propensity to adverse reactions to drug (disorder) [facility] (5 sources) Venom-Honey Bee; Translations: [VENOM-HONEY BEE] Drug Allergy 2 Unknown [facility] (4 sources) buPROPion; Translations: [BUPROPION] Drug Allergy 3 Intolerance [facility] Medications Current Medications Medication Drug Class(es) Dates Sig (Normalized) Sig (Original) cephalexin 500 mg oral capsule (2 sources) Cephalosporin Antibacterial Start: 04-19-2023 End: 04-26-2023 take 1 capsule by mouth three times daily cephALEXin (KEFLEX) 500 mg capsule Take 1 capsule by mouth three times a day for 7 days. 21 capsule 0 04/19/2023 04/26/2023 Active Completed/Discontinued Medications Medication Drug Class(es) Dates Sig (Normalized) Sig (Original) gabapentin 100 mg oral capsule (4 sources) Anti-epileptic Agent take 1 capsule by mouth three times daily gabapentin (NEURONTIN) 100 mg capsule Take 100 mg by mouth three times daily. Dr. Osuna 0 Active Problems Problem Classification Problem Date Documented Date Episodic/Chronic Immunizations and screening for infectious disease (1 source) Patient encounter status; Translations: [Encounter for screening for infections with a predominantly sexual mode of transmission] 04-19-2023 Episodic Open wounds of extremities (1 source) Laceration of hand without foreign body; Translations: [Laceration without foreign body of right hand, initial encounter] Episodic Other non-traumatic joint disorders (1 source) Pain in wrist; Translations: [Pain in right wrist] 03-07-2023 Episodic Other non-traumatic joint disorders (1 source) Pain in right wrist; Translations: [Wrist pain, acute, right] Onset: 03-07-2023 Episodic Spondylosis; intervertebral disc disorders; other back problems (1 source) Acute low back pain; Translations: [Acute midline low back pain without sciatica] 04-19-2023 Episodic Urinary tract infections (1 source) Acute cystitis; Translations: [Acute cystitis without hematuria] 04-19-2023 Episodic Results Test Name Value Interpretation Reference Range Facil ity Vital Signs Date Time Vital Sign Value Performing Clinician Po pro 04-19-2023 10:29-0500 Body temperature 98.91 [degF] Phil Aly APRN.PEDIATRICS PHYSICIAN Work Phone: [facility] 04-19-2023 10:29-0500 Body weight 118.39 kg Phil Aly SETTER UP.PEDIATRICS PHYSICIAN Work Phone: [facility] 04-19-2023 10:29-0500 Diastolic blood pressure 98 mm[Hg] Phil Aly SETTER UP.PEDIATRICS PHYSICIAN Work Phone: [facility] 04-19-2023 10:29-0500 Heart rate 88 /min Phil Aly SETTER UP.PEDIATRICS PHYSICIAN Work Phone: [facility] 04-19-2023 10:29-0500 Respiratory rate 16 /min Phil Aly SETTER UP.PEDIATRICS PHYSICIAN Work Phone: [facility] 04-19-2023 10:29-0500 SaO2% (BldA) [Mass fraction] 98 % Phil Aly SETTER UP.PEDIATRICS PHYSICIAN Work Phone: [facility] 04-19-2023 10:29-0500 Systolic blood pressure 140 mm[Hg] Phil Aly SETTER UP.PEDIATRICS PHYSICIAN Work Phone: [facility] 03-07-2023 12:17-0400 Body temperature 98.29 [degF] Son Rodney SETTER UP.PEDIATRICS PHYSICIAN Work Phone: [facility] 03-07-2023 12:17-0400 Body weight 113.76 kg Son Rodney SETTER UP.PEDIATRICS PHYSICIAN Work Phone: [facility] 03-07-2023 12:17-0400 Diastolic blood pressure 67 mm[Hg] Son Rodney SETTER UP.PEDIATRICS PHYSICIAN Work Phone: [facility] 03-07-2023 12:17-0400 Heart rate 87 /min Son Rodney SETTER UP.PEDIATRICS PHYSICIAN Work Phone: [facility] 03-07-2023 12:17-0400 Respiratory rate 18 /min Son Rodney SETTER UP.PEDIATRICS PHYSICIAN Work Phone: [facility] 03-07-2023 12:17-0400 SaO2% (BldA) [Mass fraction] 98 % Son Rodney SETTER UP.PEDIATRICS PHYSICIAN Work Phone: [facility] 03-07-2023 12:17-0400 Systolic blood pressure 114 mm[Hg] Son Rodney SETTER UP.PEDIATRICS PHYSICIAN Work Phone: [facility] 10-10-2022 17:49-0400 Body temperature 98.1 [degF] Phil Aly SETTER UP.PEDIATRICS PHYSICIAN Work Phone: [facility] 10-10-2022 17:49-0400 Body weight 102.88 kg Phil Aly SETTER UP.PEDIATRICS PHYSICIAN Work Phone: [facility] 10-10-2022 17:49-0400 Diastolic blood pressure 78 mm[Hg] Phil Aly SETTER UP.PEDIATRICS PHYSICIAN Work Phone: [facility] 10-10-2022 17:49-0400 Heart rate 88 /min Phil Aly SETTER UP.PEDIATRICS PHYSICIAN Work Phone: [facility] 10-10-2022 17:49-0400 Respiratory rate 18 /min Phil Aly SETTER UP.PEDIATRICS PHYSICIAN Work Phone: [facility] 10-10-2022 17:49-0400 SaO2% (BldA) [Mass fraction] 97 % Phil Aly SETTER UP.PEDIATRICS PHYSICIAN Work Phone: [facility] 10-10-2022 17:49-0400 Systolic blood pressure 122 mm[Hg] Phil Aly SETTER UP.PEDIATRICS PHYSICIAN Work Phone: [facility] Encounters Encounter Date Encounter Type Care Provider Facility Start: 04-20-2023 Telephone encounter Phil pool SETTER UP.PEDIATRICS PHYSICIAN Work Phone: [facility] Procedures Date Procedure Procedure Detail Performing Clinician Start: 04-19-2023 Urnls dip stick/tabl et rgnt auto w/o microscopy [facility] Provider Plan of Treatment Date Care Activity Detail Author Start: 12-04-2029 Urine microalbumin profile [facility] Start: 04-19-2023 End: 07-19-2023 Bacteria identified in Urine by Culture URINE CULTURE Microbiology Routine Acute midline low back pain without sciatica Expected: 04/19/2023, Expires: 07/19/2023 [facility] Work Phone: Immunizations Immunization Date Immunization Notes Care Provider Fa adali 12-05-2019 tetanus toxoid, redu stacia diphtheria toxoid, and acellular pertussis vaccine, adsorbed Phil Aly SETTER UP.PEDIATRICS PHYSICIAN Work Phone: [facility] 03-01-2010 influenza, seasonal, injectable, preservative free Phil Aly SETTER UP.PEDIATRICS PHYSICIAN Work Phone: [facility] 03-01-2010 influenza virus vacc ine, unspecified formulation Son Rodney SETTER UP.PEDIATRICS PHYSICIAN Work Phone: [facility] 03-22-2008 human papilloma viru s vaccine, quadrivalent [facility] SETTER UP.PEDIATRICS PHYSICIAN Work Phone: [facility] 03-22-2008 meningococcal polysaccharide (groups A, C, Y and W-135) diphtheria toxoid conjugate vaccine (MCV4P) Phil Aly SETTER UP.PEDIATRICS PHYSICIAN Work Phone: [facility] 11-16-2007 human papilloma viru s vaccine, quadrivalent [facility] UP.PEDIATRICS PHYSICIAN Work Phone: [facility] 07-23-2007 human papilloma viru s vaccine, quadrivalent Phil [facility] SETTER UP.PEDIATRICS PHYSICIAN Work Phone: [facility] 07-23-2007 tetanus toxoid, redu stacia diphtheria toxoid, and acellular pertussis vaccine, adsorbed Phil Aly SETTER UP.PEDIATRICS PHYSICIAN Work Phone: [facility] 12-01-2000 diphtheria, tetanus toxoids and acellular pertussis vaccine, unspecified formulation Phil Harpertrista SETTER UP.PEDIATRICS PHYSICIAN Work Phone: [facility] 12-01-2000 measles, mumps and rubella virus vaccine [facility] SETTER UP.PEDIATRICS PHYSICIAN Work Phone: [facility] 12-01-2000 poliovirus vaccine, inactivated Phil Aly SETTER UP.PEDIATRICS PHYSICIAN Work Phone: [facility] 06-01-1997 diphtheria, tetanus toxoids and acellular pertussis vaccine, unspecified formulation Phil Aly SETTER UP.PEDIATRICS PHYSICIAN Work Phone: [facility] 08-25-1996 haemophilus influenz ae type b vaccine, conjugate unspecified formulation Phil Harpertrista SETTER UP.PEDIATRICS PHYSICIAN Work Phone: [facility] 08-25-1996 measles, mumps and rubella virus vaccine Phil [facility] SETTER UP.PEDIATRICS PHYSICIAN Work Phone: [facility] 04-15-1996 DTP-Haemophilus influenzae type b conjugate vaccine Phil Harpertrista SETTER UP.PEDIATRICS PHYSICIAN Work Phone: [facility] 04-15-1996 hepatitis B vaccine, pediatric or pediatric/adolescent dosage Phil Aly SETTER UP.PEDIATRICS PHYSICIAN Work Phone: [facility] 04-15-1996 poliovirus vaccine, unspecified formulation Phil Aly SETTER UP.PEDIATRICS PHYSICIAN Work Phone: [facility] 1995 DTP-Haemophilus influenzae type b conjugate vaccine Phil Romotrista SETTER UP.PEDIATRICS PHYSICIAN Work Phone: [facility] 1995 poliovirus vaccine, unspecified formulation Phil Aly SETTER UP.PEDIATRICS PHYSICIAN Work Phone: [facility] 1995 DTP-Haemophilus influenzae type b conjugate vaccine Phil Aly SETTER UP.PEDIATRICS PHYSICIAN Work Phone: [facility] 1995 hepatitis B vaccine, pediatric or pediatric/adolescent dosage Phil Harperletrista SETTER UP.PEDIATRICS PHYSICIAN Work Phone: [facility] 1995 poliovirus vaccine, unspecified formulation Phil Romobury SETTER UP.PEDIATRICS PHYSICIAN Work Phone: [facility] 1995 hepatitis B vaccine, pediatric or pediatric/adolescent dosage Phil Aly SETTER UP.PEDIATRICS PHYSICIAN Work Phone: [facility] Payers Date Payer Category Payer Medicaid ANTHEM MEDICAID AN[employer] [employer]BS MEDICA[place] xxxDING 2022-Present [phone] [address] [place] [address] Medicaid [id number] 2022 Medicaid [id number] 2022 Medicaid PENDING 2022 Private Health Insurance HUMANA HUMANA MEDICAID [facility] [id number] 2022-Present [address] [address] [place] [address] Medicaid [id number] 2017 Self-pay 2017 Unknown [id number] Social History Date Type Detail Facility Start: 10-10-2022 Tobacco smoking stat [facility] Occasional tobacco smoker [facility] Start: 10-10-2022 Tobacco use and exposure Smokeless t obacco non-user [facility] Start: 10-10-2022 End: 04-19-2023 Alcohol intake Lifetime non-drinker (finding) [facility] Start: 1995 Sex Assigned At Not on file [facility] Start: 04-19-2020 End: 03-07-2023 History of Social function [facility] Start: 04-19-2020 End: 03-07-2023 Tobacco use panel [facility] National Score (1-10 0), lower number is lower risk Not on file [facility] Clinical Notes 10-10-2022 to 04-21-2023 Telephone Encounter - Marilia Bonner MA - 04/21/2023 9:49 AM ESTTelephone Encounter - Kamla Gann MA - 04/20/2023 1:45 PM ESTTelephone Encounter - Leigh Briseno LPN - 04/20/2023 8:31 AM EST Note Date & Type Note Facility 04-21-2023 Miscellaneous Notes Formattin g of this note might be different from the original. Patient notified of results, verbalized understanding of instructions given. Marilia Bonner MA ----- Message from Kelsea Watt APRN.BLAYNE sent at 04/20/2023 11:11 AM EST ----- Urine culture did not show clear evidence of infection. She may continue to take antibiotic if it has been helpful. If not improving, recommend follow up with PCP. Kelsea Watt CNP Left message for patient to return call. Leigh Briseno LPN Gonorrhea and Chlamydia test negative. Phil Aly APRN.BLAYNE documented in this encounter [facility] 04-19-2023 Note HNO ID: [id number] Author: Phil Aly APRN.BLAYNE Service: ? Author Type: Nurse Practitioner Type: Progress Notes Filed: 04/19/2023 10:53 AM Note Text: Subjective HPI A nontoxic appearing female presents to urgent care with chief complaint of possible UTI. Duration of symptoms 1 days. Associated symptoms dysuria, frequency, and urgency. Patient has history of UTIs in past with similar signs and symptoms. Patient denies the use of any [id number] medications or home remedies for symptom management. Patient states pain is a 3/10. Did vomit twice yesterday. No blood. No vomiting today. Does have similar back pain. This is normal with UTIs for patient. Patient denies any fevers, flank pain, abdominal pain, nausea, vomiting, vaginal discharge, chance of , or urological abnormalities. Last menstrual cycle was late last month. History of polycystic ovarian disease. Past medical history prescription medications allergies reviewed. .Patient presents with: UTI: Back pain, nauseated History reviewed. No pertinent past medical history. History reviewed. No pertinent surgical history. ALLERGIES Venom-Honey Bee and Wellbutrin [Bupropion] MEDICATIONS gabapentin (NEURONTIN) 100 mg capsule Take 100 mg by mouth three times daily. Dr. Osuna (Patient not taking: Reported on 10/10/2022) meloxicam (MOBIC) 7.5 mg tablet Take 7.5 mg by mouth once daily. Dr. Osuna (Patient not taking: Reported on 10/10/2022) History reviewed. No pertinent family history. Social History Tobacco Use Smoking status: Some Days Smokeless tobacco: Never Substance Use Topics Alcohol use: Never BP 140/98 Pulse 88 Temp 37.2 ?C (98.9 ?F) Resp 16 Wt 118.4 kg (261 lb) LMP 04/09/2019 SpO2 98% Review of Systems Constitutional: Negative for chills, fever and malaise/fatigue. HENT: Negative for congestion, ear discharge, ear pain, sinus pain and sore throat. Eyes: Negative for blurred vision, pain, discharge and redness. Respiratory: Negative for cough, hemoptysis, sputum production, shortness of breath, wheezing and stridor. Cardiovascular: Negative for chest pain. Gastrointestinal: Negative for abdominal pain, diarrhea, nausea and vomiting. Genitourinary: Positive for dysuria, frequency and urgency. Negative for flank pain and hematuria. Musculoskeletal: Negative for myalgias. Skin: Negative for itching and rash. Neurological: Negative for dizziness and headaches. Objective Physical Exam Vitals and nursing note reviewed. Constitutional: General: She is not in acute distress. Appearance: She is not toxic-appearing or diaphoretic. HENT: Head: Normocephalic. Jaw: No trismus. Right Ear: Hearing normal. No decreased hearing noted. No drainage, swelling or tenderness. Tympanic membrane is not perforated, erythematous or bulging. Left Ear: Hearing normal. No decreased hearing noted. No drainage, swelling or tenderness. Tympanic membrane is not perforated, erythematous or bulging. Nose: Nose normal. Mouth/Throat: Pharynx: Uvula midline. No uvula swelling. Tonsils: No tonsillar abscesses. Eyes: Pupils: Pupils are equal, round, and reactive to light. Cardiovascular: Rate and Rhythm: Normal rate and regular rhythm. Pulses: Normal pulses. Pulmonary: Effort: Pulmonary effort is normal. No respiratory distress. Breath sounds: Normal breath sounds. Chest: Chest wall: No tenderness. Abdominal: General: Bowel sounds are normal. There is no distension. Palpations: Abdomen is soft. Abdomen is not rigid. Tenderness: There is no abdominal tenderness. There is no right CVA tenderness, left CVA tenderness, guarding or rebound. Negative signs include Simmons's sign and McBurney's sign. Musculoskeletal: General: No tenderness. Cervical back: Normal range of motion. Lymphadenopathy: Head: Right side of head: No submental, submandibular, tonsillar, preauricular, posterior auricular or occipital adenopathy. Left side of head: No submental, submandibular, tonsillar, preauricular, posterior auricular or occipital adenopathy. Cervical: Right cervical: No superficial or posterior cervical adenopathy. Left cervical: No superficial or posterior cervical adenopathy. Skin: General: Skin is warm and dry. Findings: No rash. Neurological: General: No focal deficit present. Mental Status: She is alert and oriented to person, place, and time. ASSESSMENT/PLAN: 1. Acute midline low back pain without sciatica - ICD9: 724.2, ICD10: M54.50 (primary diagnosis) - UA DIP, URINE (POC) - URINE CULTURE 2. Screening for STD (sexually transmitted disease) - ICD9: V74.5, ICD10: Z11.3 - GONORRHEA/CHLAMYDIA NAAT 3. Acute cystitis without hematuria - ICD9: 595.0, ICD10: N30.00 No flank pain. No vomiting. No evidence of acute abdomen. Low suspicion for pyelonephritis kidney stones. Treat for acute cystitis. Small amount of leukocytes noted on urine dip. Tete (more content not included)... [facility] 04-19-2023 History of Presen t illness Narrative Subjective HPI A nontoxic appearing female presents to urgent care with chief complaint of possible UTI. Duration of symptoms 1 days. Associated symptoms dysuria, frequency, and urgency. Patient has history of UTIs in past with similar signs and symptoms. Patient denies the use of any jinl-qhp-amicvmg medications or home remedies for symptom management. Patient states pain is a 3/10. Did vomit twice yesterday. No blood. No vomiting today. Does have similar back pain. This is normal with UTIs for patient. Patient denies any fevers, flank pain, abdominal pain, nausea, vomiting, vaginal discharge, chance of , or urological abnormalities. Last menstrual cycle was late last month. History of polycystic ovarian disease. Past medical history prescription medications allergies reviewed. .Patient presents with: UTI: Back pain, nauseated History reviewed. No pertinent past medical history. History reviewed. No pertinent surgical history. ALLERGIES Venom-Honey Bee and Wellbutrin [Bupropion] MEDICATIONS gabapentin (NEURONTIN) 100 mg capsule Take 100 mg by mouth three times daily. Dr. Osuna (Patient not taking: Reported on 10/10/2022) meloxicam (MOBIC) 7.5 mg tablet Take 7.5 mg by mouth once daily. Dr. Osuna (Patient not taking: Reported on 10/10/2022) History reviewed. No pertinent family history. Social History Tobacco Use Smoking status: Some Days Smokeless tobacco: Never Substance Use Topics Alcohol use: Never BP 140/98 Pulse 88 Temp 37.2 C (98.9 F) Resp 16 Wt 118.4 kg (261 lb) LMP 04/09/2019 SpO2 98% Review of Systems Constitutional: Negative for chills, fever and malaise/fatigue. HENT: Negative for congestion, ear discharge, ear pain, sinus pain and sore throat. Eyes: Negative for blurred vision, pain, discharge and redness. Respiratory: Negative for cough, hemoptysis, sputum production, shortness of breath, wheezing and stridor. Cardiovascular: Negative for chest pain. Gastrointestinal: Negative for abdominal pain, diarrhea, nausea and vomiting. Genitourinary: Positive for dysuria, frequency and urgency. Negative for flank pain and hematuria. Musculoskeletal: Negative for myalgias. Skin: Negative for itching and rash. Neurological: Negative for dizziness and headaches. Objective Physical Exam Vitals and nursing note reviewed. Constitutional: General: She is not in acute distress. Appearance: She is not toxic-appearing or diaphoretic. HENT: Head: Normocephalic. Jaw: No trismus. Right Ear: Hearing normal. No decreased hearing noted. No drainage, swelling or tenderness. Tympanic membrane is not perforated, erythematous or bulging. Left Ear: Hearing normal. No decreased hearing noted. No drainage, swelling or tenderness. Tympanic membrane is not perforated, erythematous or bulging. Nose: Nose normal. Mouth/Throat: Pharynx: Uvula midline. No uvula swelling. Tonsils: No tonsillar abscesses. Eyes: Pupils: Pupils are equal, round, and reactive to light. Cardiovascular: Rate and Rhythm: Normal rate and regular rhythm. Pulses: Normal pulses. Pulmonary: Effort: Pulmonary effort is normal. No respiratory distress. Breath sounds: Normal breath sounds. Chest: Chest wall: No tenderness. Abdominal: General: Bowel sounds are normal. There is no distension. Palpations: Abdomen is soft. Abdomen is not rigid. Tenderness: There is no abdominal tenderness. There is no right CVA tenderness, left CVA tenderness, guarding or rebound. Negative signs include Simmons's sign and McBurney's sign. Musculoskeletal: General: No tenderness. Cervical back: Normal range of motion. Lymphadenopathy: Head: Right side of head: No submental, submandibular, tonsillar, preauricular, posterior auricular or occipital adenopathy. Left side of head: No submental, submandibular, tonsillar, preauricular, posterior auricular or occipital adenopathy. Cervical: Right cervical: No superficial or posterior cervical adenopathy. Left cervical: No superficial or posterior cervical adenopathy. Skin: General: Skin is warm and dry. Findings: No rash. Neurological: General: No focal deficit present. Mental Status: She is alert and oriented to person, place, and time. ASSESSMENT/PLAN: 1. Acute midline low back pain without sciatica - ICD9: 724.2, ICD10: M54.50 (primary diagnosis) - UA DIP, URINE (POC) - URINE CULTURE 2. Screening for STD (sexually transmitted disease) - ICD9: V74.5, ICD10: Z11.3 - GONORRHEA/CHLAMYDIA NAAT 3. Acute cystitis without hematuria - ICD9: 595.0, ICD10: N30.00 No flank pain. No vomiting. No evidence of acute abdomen. Low suspicion for pyelonephritis kidney stones. Treat for acute cystitis. Small amount of leukocytes noted on urine dip. Placed on Keflex. Vaginal self swabs obtained for STD testing. Treat accordingly test results. Patient was educated on supportive therapies. Patient will follow up with primary care provider as needed. Patient was instructed to immediately proceed to emergency room for any new, worsening, or symptoms lasting longer than anticipated. The patient's clinical presentation is otherwise unremarkable at this time. Based on exam and clinical finding, the patient is stable for discharge. Plan of care was discussed with patient. Patient verbalizes understanding and agrees to plan of care. This note was generated using [employer] software. It may contain errors in wording, punctuation, or spelling. Phil Aly APRN.BLAYNE documented in this encounter [facility] 03-07-2023 Note HNO ID: [id number] Author: Sally Smith RT(R) Service: Radiology Author Type: Technologist Type: Progress Notes Filed: 03/07/2023 12:50 PM Note Text: Radiology Service Progress Note PATIENT NAME: Apple Jeter DATE OF SERVICE: March 07, 2023 TIME: 12:41 PM PATIENT IDENTITY VERIFICATION COMPLETED USING TWO (2) IDENTIFIERS: Name and Date of confirmed by patient verbally. FALL SCREENING: Has the patient had 2 falls in the last year or 1 fall with injury or currently using an Ambulatory Assistive Device (Walker, Cane, Wheelchair, Crutches, etc.)? No PATIENT GENDER DATA: Female. status: : No status: NO. PATIENT RELEVANT IMPLANT DATA REVIEWED: Not Applicable RADIOLOGY DEPARTMENT: General X-ray: Exam(s) Completed: Upper Extremity X-Ray(s): Wrist, right PERIPHERAL IV DATA: Not applicable SIGNED BY: RT Marlene(R) March 07, 2023 12:41 PM [facility] 03-07-2023 Note HNO ID: [id number] Author: Son Rodney APRN.PEDIATRICS PHYSICIAN Service: ? Author Type: Nurse Practitioner Type: Progress Notes Filed: 03/07/2023 1:45 PM Note Text: SUBJECTIVE: Apple Jeter is a 27 year old female. Who presents today with right wrist pain. She fell in the parking lot and landed on an extended wrist. This happened yesterday. This morning she had some numbness in the hand. She has taken motrin for the pain. She has full ROM of the finger and decreased ROM of the thumb and wrist due to pain. She has slight bruising to the inner aspect of the wrist HPI No past medical history on file. No family history on file. Social History Tobacco Use Smoking status: Some Days Smokeless tobacco: Never Substance Use Topics Alcohol use: Never ALLERGIES Allergen Reactions Venom-Honey Bee Unknown Wellbutrin [Bupropi* Intolerance Current Outpatient Medications Medication Sig Dispense Refill gabapentin (NEURONTIN) 100 mg capsule Take 100 mg by mouth three times daily. Dr. Osuna (Patient not taking: Reported on 10/10/2022) meloxicam (MOBIC) 7.5 mg tablet Take 7.5 mg by mouth once daily. Dr. Osuna (Patient not taking: Reported on 10/10/2022) No current facility-administered medications for this visit. OBJECTIVE: BP 114/67 Pulse 87 Temp 36.8 ?C (98.3 ?F) Resp 18 Wt 113.8 kg (250 lb 12.8 oz) LMP 04/09/2019 SpO2 98% ROS all other systems reviewed and are negative Physical Exam Constitutional: Well developed, well nourished, NAD, AANDO X3. ENT: Head is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
== END 2023-06-30 22:33 | disposition home or self-care (01) ==
PROVIDERS: Emergency Provider Emergency Medicine; PCP Internal Medicine; Visit Provider Emergency Medicine
DX: S80.12XA Contusion of left lower leg, initial encounter (principal); F17.210 Nicotine dependence, cigarettes, uncomplicated; F17.290 Nicotine dependence, other tobacco product, uncomplicated; W22.8XXA Striking against or struck by other objects, initial encounter
CPT/HCPCS: 73590; 99282

== ENCOUNTER 2023-09-05 11:35 | Emergency (ER) | payer MEDICAID, SELFPAY ==
[2023-09-05 11:36] VITALS: BP 146/90
[2023-09-05 11:37] VITALS: PULSE 111; RESP 18; TEMP 36.9; O2SAT 98
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
--- NOTE | 2023-09-05 12:13 | RAD_ITS ---
STUDY: X-RAY - RIGHT SHOULDER REASON FOR EXAM: Female, 28 years old. Shoulder pain TECHNIQUE: 2 view(s) of the shoulder. COMPARISON: None. FINDINGS: Normal glenohumeral articulation. Normal acromioclavicular joint. Normal acromion. Normal humeral head and visualized proximal humerus. The soft tissue structures are unremarkable. Normal visualized pulmonary apex. RAD/Shoulder min 2 Views IMPRESSION: Normal x-ray examination of the shoulder. Electronically Signed: Lucas Davidson MD at 12:36 EDT ,
[2023-09-05 13:06] VITALS: BP 129/77; PULSE 80; RESP 16; TEMP 36.3; O2SAT 98
== END 2023-09-05 13:13 | disposition home or self-care (01) ==
PROVIDERS: Emergency Provider Emergency Medicine; PCP Internal Medicine; Visit Provider Emergency Medicine
DX: S09.90XA Unspecified injury of head, initial encounter (principal); S46.911A Strain of unspecified muscle, fascia and tendon at shoulder and upper arm level, right arm, initial encounter; F17.210 Nicotine dependence, cigarettes, uncomplicated; F17.290 Nicotine dependence, other tobacco product, uncomplicated; V18.0XXA Pedal cycle driver injured in noncollision transport accident in nontraffic accident, initial encounter
CPT/HCPCS: 73030; 99282

== ENCOUNTER 2024-12-24 17:28 | Emergency (ER) | payer MEDICAID, SELFPAY ==
[2024-12-24 17:28] VITALS: BP 125/77; PULSE 95; RESP 18; TEMP 36.2; O2SAT 96; BMI 44.0
--- NOTE | 2024-12-24 19:05 | EX.ED.DYSGE1 ---
HPI <MOJGAN Negrete - Last Filed: 12/24/24 19:39> History of Present Illness Chief Complaint: Sore Throat Narrative Narrative: 29-year-old female with history of PCOS, PTSD presents with 6 days of bilateral eye drainage, runny nose, sneezing, hoarse voice, sore throat and cough. She states her eyes are draining green gunk. She went to urgent care 2 days ago and was given a prescription eyedrop but is concerned is not working and that she needs an antibiotic. She denies fever or chills. She tried Mucinex and Tylenol. PFSH <MOJGAN Negrete - Last Filed: 12/24/24 19:39> [facility] Medical History (Updated 12/24/24 @ 19:06 by MOJGAN Negrete) Polycystic ovarian disease Frequent headaches PTSD (post-traumatic stress disorder) Back problem Home Medications ?Medication ?Instructions ?Recorded ?Last Taken ?Type NK 04/27/23 Unknown History Allergy/AdvReac Type Severity Reaction Status Date / Time venom-honey bee Allergy Severe THROAT Verified 12/24/24 17:34 SWELLING, HIVES bupropion (From Wellbutrin) AdvReac Mild Other Verified 12/24/24 17:34 Family History Other Anxiety Arthritis Depression Diabetes Mental disorder Myocardial infarction Suicide attempt Surgical History History of tonsillectomy Social History Smoking Status: Current every day smoker tobacco type: cigarettes and e-cigarettes quit status: considering quitting alcohol intake: never substance use type: marijuana what type of physical activity do you participate in: walking frequency: 3-4 times per week ROS <MOJGAN Negrete - Last Filed: 12/24/24 19:39> ROS ED ROS Narrative Constitutional: Negative for fever, chills. ENT: Positive for rhinorrhea, sore throat. Respiratory: Positive for cough. No chest pain. GI: Negative for abdominal pain, nausea, vomiting, diarrhea. EXAM <MOJGAN Negrete - Last Filed: 12/24/24 19:39> Physical Exam Narrative Exam Narrative: CONST: Patient sitting in no acute distress. EYES: Normal inspection. ENT: Moist mucous membranes and normal posterior oropharynx. There is a clear rhinorrhea. Pearly white TMs bilaterally. NECK: Normal inspection. No meningismus. RESP: No respiratory distress, CTAB. Dry cough. CVS: Regular rate and rhythm, no murmur, no gallop. ABD: Soft and nontender, no guarding or rebound, nondistended. SKIN: Color normal, no rash, warm, dry, intact. EXTREMITIES: Normal appearance, no pedal edema. NEURO: Alert and answering questions appropriately. PSYCH: Normal affect. Const Vital Signs: 12/24/24 17:28 Temperature 97.2 F L Temperature Source Axillary Pulse Rate 95 Respiratory Rate 18 Blood Pressure 125/77 H Blood Pressure Mean 93 Pulse Ox 96 Oxygen Delivery Method Room Air <Dr. Juan Ferreira MD - Last Filed: 12/24/24 19:43> Physical Exam Const Vital Signs: 12/24/24 17:28 Temperature 97.2 F L Temperature Source Axillary Pulse Rate 95 Respiratory Rate 18 Blood Pressure 125/77 H Blood Pressure Mean 93 Pulse Ox 96 Oxygen Delivery Method Room Air MDM <MOJGAN Negrete - Last Filed: 12/24/24 19:39> [facility] Narrative Medical decision making narrative: Patient's constellation of symptoms including mild conjunctivitis, rhinorrhea, sneezing, and cough are consistent with a viral upper respiratory infection. Symptoms have been ongoing for 6 days. She appears well and nontoxic and is afebrile with normal vital signs. She does not have any signs of bacterial infection that would warrant antibiotics, no signs of bacterial conjunctivitis, strep throat, otitis media etc.. She is not hypoxic and her lungs are clear so I do not think a chest x-ray is indicated. I discussed that this is most likely a viral illness and she can take [id number] medications as needed. She was discharged in stable condition. <Dr. Juan Ferreira MD - Last Filed: 12/24/24 19:43> [facility] Narrative Medical decision making narrative: Patient's constellation of symptoms including mild conjunctivitis, rhinorrhea, sneezing, and cough are consistent with a viral upper respiratory infection. Symptoms have been ongoing for 6 days. She appears well and nontoxic and is afebrile with normal vital signs. She does not have any signs of bacterial infection that would warrant antibiotics, no signs of bacterial conjunctivitis, strep throat, otitis media etc.. She is not hypoxic and her lungs are clear so I do not think a chest x-ray is indicated. I discussed that this is most likely a viral illness and she can take [id number]-xrlifxi medications as needed. She was discharged in stable condition. I have personally performed a face to face assessment of the patient and have reviewed the GERMAN Note. I performed a substantive portion of the visit including all aspects of the following. My boyd findings include: History is 29-year-old female URI symptoms for the last 6 days or so. With nasal and eye drainage. Was seen in urgent care was placed on eyedrops. Patient states I know I need the antibiotic. Exam is [well-appearing 29-year-old female. Vital signs stable afebrile. No acute distress. H EENT exam pupils round react light. Her motions are intact. Currently there is no injection has no discharge. There is no orbital or periorbital cellulitis. There is no preauricular lymphadenopathy. Posterior pharynx is normal. There is no erythema or exudate. She has no choking swelling or breathing. No stridor or drooling. Clear rhinorrhea from her nose TMs are normal. Neck nontender no lymphadenopathy. Lungs clear to auscultation. Heart regular rhythm no murmur. Chest wall ribs nontender. Abdomen soft nontender. Patient moving all 4 extremities. Normal range of motion. Nontender no edema. Skin no rashes. Back nontender. Neurologically she is awake alert. Answer question following commands.] Medical Decision Making [had a discussion with the patient explaining that this is a virus. She did not need an antibiotic. She Requesting oral antibiotics I explained to her there would be no reason to do that at this time this is viral there is no signs of this being a bacterial infection. She will be discharged to home.] Other additions or changes: [None] Discharge Plan Triage Chief Complaint: Sore Throat ED Midlevel Provider: Alma Curtis ED Provider: Juan Ferreira Dx/Rx/DC Orders Clinical Impression: Acute URI Instructions: Adult Self-Care for Colds Prescriptions: No Action NK Primary Care Provider: Care Physician,No Primary Referrals: NOT,DEFINED [Non-Staff] - Activity Restrictions/Additional Instructions: Your symptoms are consistent with a viral illness. Take Tylenol or Motrin as needed for fever or pain. You can use [id number] medications such as Mucinex or cough suppressants. The symptoms should improve on their own over time. Print Language: Lithuanian Disposition Disposition: Home, Self Care
--- NOTE | 2024-12-24 19:48 | ED.RN ---
Pt angry when this RN attempted to asses pt and obtain vital signs. Pt demanding to be tested for strep throat and given a prescription for antibacterials'. This RN attempted to explain the MD did not feel a strep test was indicated. Pt ripped off blood pressure cuff and pulse ox and threw it at this RN. Pt yelling and cursing, states this hospital never does anything for her. Pt cursing calling this RN a long haired bitch. This RN left room. Pt ambulate out of dept kicking the doors as she was leaving.
--- OUTSIDE RECORDS SUMMARY | 2024-12-24 20:20 | XMS RPT_ITS | CCD ---
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 M100.678 SARS-CoV-2 (COVID 19 ) Negative INFLUENZA A Negative INFLUENZA B Positive RSV PCR Negative INFLUENZA B Positive A Normal [facility] Comment on above: Performed By: #### M 100.678 #### [facility] Laboratory [address] [facility]. [place], [place], [address] Chest PA and Lateralon 05-02 Chest PA and Lateral [facility] Imaging Services [address] [place] [address] Chest PA and Lateral MR#: [id number] Acct: [id number] Name: APPLE JETER Rep #: [id number] : 1995 F 27 From: Lucas cameron MD PCP: Dr. Gaurav Osuna MD Status: DEP ER Study: Chest PA and Lateral Date of Exam: 05/02/23 Exam# [id number] Ordering Dr: Everton Marquez DO [id number] STUDY: X-RAY CHEST REASON FOR EXAM: Female, 27 years old. Cough TECHNIQUE: PA and lateral views of the chest. COMPARISON: None. FINDINGS: The lungs are clear and expanded. There is no demonstrated pleural abnormality. Normal size heart. Normal mediastinum and aniket. Normal visualized pulmonary arteries. Normal visualized aortic arch and descending thoracic aorta. Normal visualized thoracic spine. Normal visualized ribs, clavicles, and shoulders. There is no demonstrated abnormality of the visualized soft tissue structures of the upper abdomen. RAD/Chest PA and Lateral IMPRESSION: Normal x-ray examination of the chest. Electronically Signed: Lucas Davidson MD at 12:09 EST , CC: Dr. Everton Marquez DO; Dr. Gaurav Osuna MD Accounting Machine Operator: Signed Normal [facility] Emergency Department Summary on 05-02-2023 Emergency Department Summary [facility] Medical Records Department [address] [facility] [place] [address] Emergency Department Summary 05/02/23 MR#: [id number] Acct: [id number] Name: APPLE JETER SEPTEMBER Rep #: [id number] : 1995 27 From: Everton Marquez DO PCP: Dr. Gaurav Osuna MD Status:DEP ER Location: ED HPI History of Present Illness Chief Complaint: Cough Informant: patient Narrative Narrative: 27-year-old female presenting to the emergency room with cough. Patient states that last Friday she felt ill on Friday was diagnosed with COVID-19. She states that she should have been read returning to work today but she continues to have intermittent fever. She notes continued cough with sputum production. 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 [facility] Medical History Back problem Frequent headaches Polycystic ovarian disease PTSD (post-traumatic stress disorder) Home Medications NK 04/27/23 [History Last Taken Unknown] Allergy/AdvReac Type Severity Reaction Status Date / Time venom-honey bee Allergy Severe THROAT Verified 04/27/23 06:51 SWELLING, HIVES bupropion [From Wellbutrin] AdvReac Mild Other Verified 04/27/23 06:51 Family History Other Anxiety Arthritis Depression Diabetes Mental disorder Myocardial infarction Suicide attempt Surgical History History of tonsillectomy Social History Smoking Status: Former smoker quit status: considering quitting counseling given: provider counseling alcohol intake: never substance use type: marijuana what type of physical activity do you participate in: walking frequency: 3-4 times per week ROS ROS ED Constitutional Constitutional ED: Reports chills and fever(s); Denies weight loss Eyes Eyes: Denies change in vision or diplopia ENT ENT ED: Reports rhinorrhea; Denies ear pain or sore throat Cardiovascular Cardiovascular: Denies chest pain, orthopnea, palpitations or racing heartbeat Respiratory/Chest Respiratory/Chest: Reports cough; Denies dyspnea or orthopnea Gastrointestinal Gastrointestinal: Denies abdominal pain, diarrhea, nausea or vomiting Genitourinary Genitourinary ED: Denies dysuria, hematuria or urinary frequency Musculoskeletal Musculoskeletal: Reports myalgias; Denies arthralgias or back pain Integumentary Denies abscess or rash Neurologic Neurologic: Denies headache(s) or weakness Psychiatric Psychiatric: Denies anxiety, depression, suicidal ideation or suicidal thoughts Endocrine Endocrinology: Denies polydipsia, polyphagia or polyuria Allergic/Immunologic Allergic/Immunologic ED: Denies mouth swelling, tongue swelling or urticaria EXAM Physical Exam Const Vital Signs: 05/02/23 10:13 05/02/23 10:50 Temperature 96.0 F L Temperature Source Temporal Pulse Rate 97 Respiratory Rate 22 H Respiratory Effort Short of Breath Respiratory Depth Normal Respiratory Pattern Normal Blood Pressure 144/86 H Blood Pressure Mean 105 Pulse Ox 98 Oxygen Delivery Method Room Air Positive well nourished, well developed and obese General Appearance ED: well developed Nutritional Appearance: obese HEENT Reports normocephalic, head/scalp atraumatic and moist mucous membranes HEENT Narrative: Mild turbinate congestion Eyes PERRL and EOMs intact bilaterally Neck no lymphadenopathy, supple and no JVD Resp normal respiratory effort and clear to auscultation bilaterally Resp Narrative: Moist cough occasionally productive lungs otherwise clear. Cardio regular rate, regular rhythm and no murmurs GI normal to inspection, nondistended, normoactive bowel sounds and non-tender Palpation: soft Back/Spine no CVA tenderness and normal ROM Extremity normal to inspection General Extremety ED: Negative for edema General Extremity: Negative for edema Neuro oriented x3 and CN's II-XII intact bilaterally Sensorium / Orientation: alert Motor Exam: strength 5/5 throughout Psych mental status grossly normal Mood Affect: Negative for depressed or tearful Skin no rashes or lesions noted and no wounds MDM MDM MDM Narrative Medical decision making narrative: My independent interpretation of the two-view chest x-ray is no acute infiltrate. Clinically I think the patient still has COVID-19. Given the continued fever and cough would recommend continued isolation. I will write her a work note. Return if worsening or concerns Discharge Plan Triage Chief Complaint: Cough ED Provider: Everton Marquez Dx/Rx/DC Orders (more content not included)... Normal [facility] Emergency Department Summary on 04-27-2023 Emergency Department Summary [facility] Medical Records Department [address] [place] [address] Emergency Department Summary 04/27/23 MR#: [id number] Acct: [id number] Name: APPLE JETER Rep #: [id number] : 1995 27 From: Sally Coronado DO PCP: Dr. Gaurav Osuna MD Status:DEP ER Location: ED HPI History of Present Illness Chief Complaint: General Illness Detail of Chief Complaint: Fever and cough and sore throat Informant: patient Narrative Narrative: Patient presents with 2-day history of fever, cough, and sore throat. She complains of some bodyaches and pressure in her chest. Patient currently at a care home where another individual was known to have COVID. Patient believes she might have COVID or strep. She had her tonsils removed in the past. Patient has not taken any ibuprofen or Tylenol. [facility] Medical History (Updated 04/27/23 @ 08:[address] Sally Coronado DO) Back problem Frequent headaches Polycystic ovarian disease PTSD (post-traumatic stress disorder) Home Medications NK 04/27/23 [History Last Taken Unknown] Allergy/AdvReac Type Severity Reaction Status Date / Time venom-honey bee Allergy Severe THROAT Verified 04/27/23 06:51 SWELLING, HIVES bupropion [From Wellbutrin] AdvReac Mild Other Verified 04/27/23 06:51 Family History Other Anxiety Arthritis Depression Diabetes Mental disorder Myocardial infarction Suicide attempt Surgical History History of tonsillectomy Social History Smoking Status: Former smoker quit status: considering quitting counseling given: provider counseling alcohol intake: never substance use type: marijuana what type of physical activity do you participate in: walking frequency: 3-4 times per week ROS ROS ED Review of Systems ROS Unobtainable: other Constitutional Constitutional ED: Reports fever(s) and lethargy; Denies chills, sweats or weight loss Eyes Eyes: Denies blurry vision, change in vision or diplopia ENT ENT ED: Reports sore throat; Denies rhinorrhea Cardiovascular Cardiovascular: Denies chest pain, orthopnea or racing heartbeat Respiratory/Chest Respiratory/Chest: Denies cough, dyspnea, dyspnea on exertion, orthopnea or sputum Gastrointestinal Gastrointestinal: Denies abdominal pain, diarrhea, nausea or vomiting Genitourinary Genitourinary ED: Denies dysuria, hematuria or urinary frequency Musculoskeletal Musculoskeletal: Denies arthralgias, back pain, myalgias or neck pain Integumentary Denies abscess, Abrasions or rash Neurologic Neurologic: Denies headache(s) or weakness Psychiatric Psychiatric: Denies anxiety, depression or suicidal thoughts Endocrine Endocrinology: Denies polydipsia, polyphagia or polyuria Hematologic/Lymphatic Hematologic/Lymphatic: Denies easy bleeding, easy bruising or lymphadenopathy Allergic/Immunologic Allergic/Immunologic ED: Denies mouth swelling, tongue swelling or urticaria EXAM Physical Exam Const Vital Signs: 04/27/23 06:48 04/27/23 06:50 Temperature 100.8 F H Temperature Source Oral Pulse Rate 110 H Respiratory Rate 19 H Respiratory Pattern Normal Blood Pressure 107/59 L Blood Pressure Mean 75 Pulse Ox 98 Oxygen Delivery Method Room Air Positive well nourished and well developed General Appearance ED: well developed and NAD HEENT Reports TM's clear and moist mucous membranes normocephalic and atraumatic; Negative for trauma or tenderness Tympanic Membrane ED: Yes TM's clear Eyes PERRL and EOMs intact bilaterally General Eye ED: Negative for pale conjunctiva or scleral icterus Neck no lymphadenopathy, supple and no JVD General: Negative for tenderness Chest Wall inspection of chest normal and palpation of chest normal Chest: Negative for tenderness Resp normal respiratory effort and clear to auscultation bilaterally Effort and Inspection: Negative for respiratory distress or pain with movement Auscultation: Negative for rhonchi, wheezes or diminished lung sounds Cardio regular rate, regular rhythm, S1 normal heart sound, S2 normal heart sound and no murmurs Peripheral Pulses: pulses 2+ throughout GI normal to inspection, nondistended, normoactive bowel sounds, soft to palpation, non-tender, non- distended and no masses Back/Spine no CVA tenderness and no thoracic nor lumbar tenderness Extremity normal to inspection General Extremety ED: Negative for edema General Extremity: Negative for edema Neuro oriented x3, CN's II-XII intact bilaterally, no sensory deficits noted and gait normal Sensorium / Orientation: awake, alert, oriented to person, oriented to place and oriented to time Motor Exam: str (more content not included)... Normal [facility] Influenza virus A and B and SARS-CoV-2 (COVID-19) Ag panel - Upper respiratory specimOrdered By: Sally Coronado on 04-27-2023 SARS-CoV-2 & FLU Antigen (Rapid) SARS-CoV-2 (COVID 19) [facility] M101.0111on 04-27-2023 M101.0111 *Positive results do not differentiate between SARS-CoV and SARS-CoV-2. FLUABV+SARS-CoV2 Ag Pnl Up resp IA.rapid Negative Influenza results should be confirmed with FLU PANEL MOLECULAR if indicated. FLUABV+SARS-CoV2 Ag Pnl Up resp IA.rapid * This test has not been FDA cleared or approved; the test has been authorized by FDA under an Emergency Use Authorization (EAU) for use by laboratories certified under CLIA that meet the requirements to perform moderate, high, or waived complexity tests. FLUABV+SARS-CoV2 Ag Pnl Up resp IA.rapid Normal Reference Range: Negative Daphne, ESEQUIEL method FLUABV+SARS-CoV2 Ag Pnl Up resp IA.rapid Copy of report sent to Infection Control Printer [id number] 04/27/23 0749 BLUCAS. SARS-CoV-2 (COVID 19) A *POSITIVE* A Influenza Ag, Direct NEGATIVE for Influenza A/B Antigen (See Note) SARS-CoV-2 (COVID 19) Normal [facility] Comment on above: Performed By: #### M 101.0111 #### [facility] Laboratory [address] [place], [address] Eusebio 04-20-2023 [place]URAK Telephone ([facility]) -------- APPLE JETER ([id number]) 1995 F Date Time Provider Department 04/20/23 [facility] During your visit today, we recorded the following information about you: En Aly APRN.CNP 04/20/2023 8:11 AM Signed Gonorrhea and Chlamydia test negative. En Aly APRN.Leigh Ayala LPN 04/20/2023 8:32 AM Signed Left message for patient to return call. SUHAIL Pope Sabrina, MA 04/20/2023 1:45 PM Signed ----- Message from Kelsea Watt APRN.CNP sent at 04/20/2023 11:11 AM EST ----- Urine culture did not show clear evidence of infection. She may continue to take antibiotic if it has been helpful. If not improving, recommend follow up with PCP. BLAYNE Costa Alexandra, MA 04/21/2023 9:50 AM Signed Patient notified of results, verbalized understanding of instructions given. Christina Jackson MA Allergies As of Date: 04/20/2023 Noted Allergy Reaction VENOM-HONEY BEE 11/29/2021 16 - Unknown WELLBUTRIN (BUPROPION) 03/07/2023 5 - Intolerance Date Reviewed: 04/19/2023 Reviewed by: En Aly APRN.JEWELRY SALES REPRESENTATIVE - Fully Assessed Reason for Visit: Results [95] Prescriptions as of 04/21/2023 - cephALEXin (KEFLEX) 500 mg capsule Take 1 capsule by mouth three times a day for 7 days. - gabapentin (NEURONTIN) 100 mg capsule Take 100 mg by mouth three times daily. Dr. Osuna - meloxicam (MOBIC) 7.5 mg tablet Take 7.5 mg by mouth once daily. Dr. Osuna Problem List As Of Date: 04/20/2023 (None) Encounter Status:Closed by CHRISTINA JACKSON on 04/21/23 Normal [facility] Bacteria Ur Culton 3 Bacteria identified Cx Nom (U) ORGANISM ID: 1 >=100,000 CFU/ml Normal urogenital gabe Normal [facility] Comment on above: Performed By: #### 6 30-4 #### [facility] CLIA [id number] [address] [place] [address] [place] C. trachomatis+N. gonorrhoea e DNA MARSHA+probe Ql (Unsp spec)on 04-19-2023 C. trachomatis rRNA MARSHA+probe Ql (Unsp spec) Negative Normal Negative for Chlamydia trachomatis by amplificaton [facility] Comment on above: Order Comment: Speci men Type: SWAB Ordering Facility: [facility] Address: [address] [place] [address] Performed By: #### 3 6902-5 #### [facility] CLIA [id number] [address] [place] [address] [place] N. gonorrhoeae rRNA MARSHA+probe Ql (Unsp spec) Negative Normal Negative for Neisseria gonorrhoeae by amplification [facility] Comment on above: Order Comment: Speci men Type: SWAB Ordering Facility: [facility] Address: [address] [place] [address] Performed By: #### 3 6902-5 #### [facility] CLIA [id number] [address] [place] [address] [place] CNOVon 04-19-2023 CNOV Office Visit ([facility] ) -------- APPLE JETER ([id number]) 1995 F Date Time Provider Department 04/19/23 10:30 AM EN ALY [facility] During your visit today, we recorded the following information about you: Temperature Pulse Respiration Blood pressure 98.9 degrees 88/minute 16/minute 140/98 Weight 118.4 kg En Aly APRN.JEWELRY SALES REPRESENTATIVE 04/19/2023 10:53 AM Signed Subjective HPI A nontoxic appearing female presents to urgent care with chief complaint of possible UTI. Duration of symptoms 1 days. Associated symptoms dysuria, frequency, and urgency. Patient has history of UTIs in past with similar signs and symptoms. Patient denies the use of any [id number] medications or home remedies for symptom management. [...] (sexually transmitted disease) - ICD9: V74.5, ICD10: Z11 (more content not included)... Normal [facility] UA DIP, URINE (POC)on 2022 BILIRUBIN UA (POCT) Negative Negative [facility] CLARITY UA (POCT) Clear [facility] COLOR UA (POCT) Yellow [facility] GLUCOSE UA (POCT) Negative Negative mg/dL [facility] Hemoglobin Ql (U) Negative Negative [facility] KETONE UA (POCT) Negative Negative mg/dL [facility] LEUKOCYTES UA (POCT) Small Abnormal Negative [facility] NITRITE UA (POCT) Negative Negative [facility] PH UA (POCT) 6.0 4.5 - 8.0 [facility] Protein Ql (U) Negative Negative mg/dL [facility] SPECIFIC GRAVITY UA (POCT) 1.015 1.005 - 1.030 [facility] UROBILINOGEN UA (POCT) 0.2 E.U./dL Normal E.U./ dL [facility] Emergency Department Summary on 04-08-2023 Emergency Department Summary [facility] Medical Records Department [address] [place] [id number] Emergency Department Summary 04/08/23 MR#: [id number] Acct: [id number] Name: APPLE JETER Rep #: [id number] : 1995 27 From: Alma ULRICH PCP: Dr. Gaurav Osuna MD Status:DEP ER Location: ED HPI History of Present Illness Chief Complaint: Lower Extremity Injury Narrative Narrative: 27-year-old female injured her left foot 2 weeks ago while working at [employer]. There is a metal bar underneath some equipment in her left foot got stuck underneath it causing a crush type injury. She has swelling and pain and is able to ambulate but is concerned it is not getting better after 2 weeks. No weakness or paresthesias. PFSH [facility] Medical History (Updated 04/08/23 @ 18:07 by MOJGAN Negrete) Back problem Frequent headaches Polycystic ovarian disease PTSD (post-traumatic stress disorder) Home Medications naproxen 500 mg tablet (Naprosyn) 500 mg PO BID PRN pain #14 tabs 11/06/22 [Rx Last Taken Unknown] sulfamethoxazole 800 mg-trimethoprim 160 mg tablet (Bactrim DS) 1 tab PO Q12H #14 tabs 11/06/22 [Rx Last Taken Unknown] tramadol 50 mg tablet 50 mg PO Q6H PRN pain 3 days #12 tabs 11/06/22 [Rx Last Taken Unknown] Allergy/AdvReac Type Severity Reaction Status Date / Time venom-honey bee Allergy Severe THROAT Verified 04/08/23 17:16 SWELLING, HIVES bupropion [From Wellbutrin] AdvReac Mild Other Verified 04/08/23 17:16 Family History Other Anxiety Arthritis Depression Diabetes Mental disorder Myocardial infarction Suicide attempt Surgical History History of tonsillectomy Social History Smoking Status: Former smoker quit status: considering quitting counseling given: provider counseling alcohol intake: never substance use type: marijuana what type of physical activity do you participate in: walking frequency: 3-4 times per week ROS ROS ED ROS Narrative Neuro: Negative for motor/sensory dysfunction. Skin: Negative for wound. Musc: Positive for left foot pain, swelling, trauma. EXAM Physical Exam Narrative Exam Narrative: CONST: Patient sitting in no acute distress. EYES: Normal inspection. NECK: Normal inspection. SKIN: Color normal, no rash, warm, dry, intact. EXTREMITIES: Bruising and tenderness over the left fourth and fifth metatarsals, no tenderness of the knee or ankle. Full range of motion of all joints, normal strength and sensation, 2+ DP pulse, brisk cap refill. NEURO: Oriented x4. PSYCH: Normal affect. Const Vital Signs: 04/08/23 17:16 04/08/23 18:43 Temperature 97.1 F L Temperature Source Temporal Pulse Rate 94 Respiratory Rate 18 14 Blood Pressure 141/74 H Blood Pressure Mean 96 Pulse Ox 98 Oxygen Delivery Method Room Air Physical Exam Const Vital Signs: 04/08/23 17:16 04/08/23 18:43 Temperature 97.1 F L Temperature Source Temporal Pulse Rate 94 Respiratory Rate 18 14 Blood Pressure 141/74 H Blood Pressure Mean 96 Pulse Ox 98 Oxygen Delivery Method Room Air MDM MDM MDM Narrative Medical decision making narrative: Patient injured her left foot 2 weeks ago. She has tenderness and bruising of the mid/lateral foot. No ankle tenderness. Full range of motion and neurovascularly intact. Differential includes foot contusion versus fracture. X-ray is negative for acute findings. I recommended RICE protocol and OTC pain relievers and she was discharged in stable condition. Radiography Diagnostic Testing: Clinical Impression(s) from Imaging Studies Foot X-Ray 04/08/23 17:18 IMPRESSION: Negative. Electronically Signed: Smiley Doyle MD at 18:04 EST Reading Location ID and State: Paras Ace MD Tel , Service support , ED attending interpretation of left foot shows no fracture or dislocation. MDM Radiography Diagnostic Testing: Clinical Impression(s) from Imaging Studies Foot X-Ray 04/08/23 17:18 IMPRESSION: Negative. Electronically Signed: Smiley Doyle MD at 18:04 EST Reading Location ID and State: Paras Ace MD Tel , Service support , Treatment and Re-Evaluation :: ED attending note: I evaluated the patient in conjunction with the GERMAN. I agree with his/her statements and above findings. I have personally performed a face to face assessment of the patient and have reviewed the GERMAN Note. I performed a substantive portion of the visit including all aspects of the following. I personally (more content not included)... Normal [facility] Foot min 3 Viewson 3 Foot min 3 Views [facility] Imaging Services [address] [place] [address] Foot min 3 Views MR#: [id number] Acct: [id number] Name: APPLE JETER Rep #: [id number] : 1995 F 27 From: Smiley stover MD PCP: Dr. Gaurav Osuna MD Status: PRE ER Study: Foot min 3 Views Date of Exam: 04/08/23 Exam# [id number] Ordering Dr: Claudy De La Cruz [id number] INDICATION: falll EXAMINATION/TECHNIQUE: X-RAY - LEFT XR Foot Min 3 Views 3 VIEWS COMPARISON: FINDINGS: No acute fracture or dislocation. No destructive bone changes. Joint spaces are well-maintained. Normal alignment. Soft tissues are unremarkable. No radiopaque foreign body or soft tissue gas. RAD/Foot min 3 Views IMPRESSION: Negative. Electronically Signed: Smiley Doyle MD at 18:04 EST Reading Location ID and State: [id number] / Tel , Service support , CC: Dr. Gaurav Osuna MD; ED PHYSICIAN PROVIDER Accounting Machine Operator: Signed Normal [facility] CNOVon 03-07-2023 CNOV Office Visit ([facility] ) -------- APPLE JETER ([id number]) 1995 F Date Time Provider Department 03/07/23 12:15 PM TRACEY [facility] During your visit today, we recorded the following information about you: Temperature Pulse Respiration Blood pressure 98.3 degrees 87/minute 18/minute 114/67 Weight 113.8 kg Singer TraceyLILLI 03/07/2023 1:45 PM Signed SUBJECTIVE: Apple Jeter is a 27 year [...] - XR WRIST INJURY 4V PA/LAT/OBL/SCAPH RIGHT Tracey Agarwal APRN.JEWELRY SALES REPRESENTATIVE Allergies As of Date: 03/07/2023 Noted Allergy Reaction VENOM-HONEY BEE 11/29/2021 16 - Unknown WELLBUTRIN (BUPROPION) 03/07/2023 5 - Intolerance Date Reviewed: 03/07/2023 Reviewed by: Christina Jackson MA - Fully Assessed Reason for Visit: Wrist Pain [1580] Cmt: R wrist pain x1 day, fell on hand Primary Visit Diagnosis:Wrist pain, acute, right [M25.531] Order(s):XR WRIST INJURY 4V PA/LAT/OBL/SCAPH RIGHT [[id number]] Order #: [id number] FUTURE Prescriptions as of 03/07/2023 - gabapentin (NEURONTIN) 100 mg capsule Take 100 mg by mouth three times daily. Dr. Osuna - meloxicam (MOBIC) 7.5 mg tablet Take 7.5 mg by mouth once daily. Dr. Osuna Problem List As Of Date: 03/07/2023 (None) Letter Text Encounter Status:Closed by TRACEY AGARWAL on 03/07/23 [facility] XR WRIST 4V PA/LAT/OBL/SCAPH RTon 03-07-2023 XR WRIST 4V PA/LAT/OBL/SCAPH RT * * *Final Report* * * DATE OF EXAM: Mar 07 2023 12:50PM WOX 5273 - XR WRIST 4V PA/LAT/OBL/SCAPH RT / PROCEDURE REASON: Wrist pain, acute, right * * * * Physician Interpretation * * * * EXAMINATION: XR WRIST 4V PA/LAT/OBL/SCAPH RT PATIENT/TECHNOLOGIST PROVIDED HISTORY: fell yesterday pain radial side CLINICAL INFORMATION: 27 years old Female with Wrist pain, acute, right. Right wrist pain fell yesterday. TECHNIQUE: XR WRIST 4V PA/LAT/OBL/SCAPH RT Laterality: RIGHT Number of different views (projections): 4 COMPARISON: None. RESULT: No fracture. Joint spaces are maintained. Ulnar negative variance. IMPRESSION: No acute osseous abnormality. Accounting Machine Operator: [employer] Transcribe Date/Time: Mar 07 2023 12:56P Dictated by : JESUS COLLINS DO This examination was interpreted and the report reviewed and electronically signed by: JESUS COLLINS DO on Mar 07 2023 12:58PM EST [id number] Normal [facility] XR WRIST INJURY 4V PA/LAT/OB L/SCAPH RIGHTon 03-07-2023 [facility] XR Wrist - right 4 Viewson 1 IMPRESSION: No acute osseous abnormality. Accounting Machine Operator: [employer] Transcribe Date/Time: Mar 07 2023 12:56P Dictated by : JESUS COLLINS DO This examination was interpreted and the report reviewed and electronically signed by: JESUS COLLINS DO on Mar 07 2023 12:58PM EST DIVISION OF RADIOLOGY * * *Final Report* * * DATE OF EXAM: Mar 07 2023 12:50PM WOX 5273 - XR WRIST 4V PA/LAT/OBL/SCAPH RT / PROCEDURE REASON: Wrist pain, acute, right * * * * Physician Interpretation * * * * EXAMINATION: XR WRIST 4V PA/LAT/OBL/SCAPH RT PATIENT/TECHNOLOGIST PROVIDED HISTORY: fell yesterday pain radial side CLINICAL INFORMATION: 27 years old Female with Wrist pain, acute, right. Right wrist pain fell yesterday. TECHNIQUE: XR WRIST 4V PA/LAT/OBL/SCAPH RT Laterality: RIGHT Number of different views (projections): 4 COMPARISON: None. RESULT: No fracture. Joint spaces are maintained. Ulnar negative variance. DIVISION OF RADIOLOGY Provider, Yomaira Dalal - 03/07/2023 * * *Final Report* * * DATE OF EXAM: Mar 07 2023 12:50PM WOX 5273 - XR WRIST 4V PA/LAT/OBL/SCAPH RT / PROCEDURE REASON: Wrist pain, acute, right * * * * Physician Interpretation * * * * EXAMINATION: XR WRIST 4V PA/LAT/OBL/SCAPH RT PATIENT/TECHNOLOGIST PROVIDED HISTORY: fell yesterday pain radial side CLINICAL INFORMATION: 27 years old Female with Wrist pain, acute, right. Right wrist pain fell yesterday. TECHNIQUE: XR WRIST 4V PA/LAT/OBL/SCAPH RT Laterality: RIGHT Number of different views (projections): 4 COMPARISON: None. RESULT: No fracture. Joint spaces are maintained. Ulnar negative variance. IMPRESSION IMPRESSION: No acute osseous abnormality. Accounting Machine Operator: [employer] Transcribe Date/Time: Mar 07 2023 12:56P Dictated by : JESUS COLLINS DO This examination was interpreted and the report reviewed and electronically signed by: JESUS COLLINS DO on Mar 07 2023 12:58PM EST [facility] Radiology Study observation (narrative) [facility] XR Wrist - right 4 ViewsOrde red By: Ccf Provider on 03-07-2023 [facility] Emergency Department Summary on 11-06-2022 Emergency Department Summary [facility] Medical Records Department [address] [place] [address] Emergency Department Summary 11/06/22 MR#: [id number] Acct: [id number] Name: APPLE JETER Rep #: [id number] : 1995 27 From: Waqar Mcnityre MD PCP: Dr. Gaurav Osuna MD Status:REG ER Location: ED HPI History of Present Illness Chief Complaint: Back Informant: patient Narrative Narrative: Patient states she has felt a subcutaneous cyst, which she is labeling and has never had any imaging or expert evaluation of this, and her right low back for the past 1.5 years. Is always been sore. For the last several days it is a lot more painful and the pain is radiating to the right, toward her hip, nothing down her leg, no fevers or chills, but she is seeking evaluation. [facility] Medical History Back problem Frequent headaches Polycystic ovarian disease PTSD (post-traumatic stress disorder) Home Medications naproxen 500 mg tablet (Naprosyn) 500 mg PO BID PRN pain #14 tabs 11/06/22 [Rx Last Taken Unknown] sulfamethoxazole 800 mg-trimethoprim 160 mg tablet (Bactrim DS) 1 tab PO Q12H #14 tabs 11/06/22 [Rx Last Taken Unknown] tramadol 50 mg tablet 50 mg PO Q6H PRN pain 3 days #12 tabs 11/06/22 [Rx Last Taken Unknown] Allergy/AdvReac Type Severity Reaction Status Date / Time venom-honey bee Allergy Severe THROAT Verified 11/29/21 14:38 SWELLING, HIVES bupropion [From Wellbutrin] AdvReac Mild Other Verified 11/06/22 14:41 Family History Other Anxiety Arthritis Depression Diabetes Mental disorder Myocardial infarction Suicide attempt Surgical History History of tonsillectomy Social History Smoking Status: Former smoker quit status: considering quitting counseling given: provider counseling alcohol intake: never substance use type: marijuana what type of physical activity do you participate in: walking frequency: 3-4 times per week ROS ROS ED Constitutional Constitutional ED: Denies chills or fever(s) Gastrointestinal Gastrointestinal: Denies abdominal pain, nausea or vomiting Musculoskeletal Musculoskeletal: Reports back pain; Denies extremity pain or neck pain Integumentary Reports as per HPI Neurologic Neurologic: Denies paresthesias or weakness EXAM Physical Exam Const Vital Signs: 11/06/22 14:39 Temperature 97.4 F L Temperature Source Temporal Pulse Rate 93 Respiratory Rate 18 Blood Pressure 135/88 H Blood Pressure Mean 103 Pulse Ox 100 Oxygen Delivery Method Room Air Back/Spine Back/Spine Narrative: Patient is tender right paraspinal lumbar soft tissues at a palpable deep subcutaneous nodule. Patient has been rubbing the overlying skin which is mildly erythematous, it blanches and is not indurated, no fluctuance. Extremity normal to inspection Extremity Narrative: FROM x 4 Neuro oriented x3 and no sensory deficits noted Sensorium / Orientation: alert Motor Exam: strength 5/5 throughout Psych mental status grossly normal Skin no rashes or lesions noted MDM MDM MDM Narrative Medical decision making narrative: Patient's obesity limits the exam here, this palpable nodule feels like it is very deep. My suspicion is that it could be a sebaceous cyst, however not able to rule out a solid soft tissue mass, she would need an MRI which certainly she does not need emergently. Since it is acutely worse and could be a sebaceous cyst that is infected, I told her that other than prescribing her pain medication, I could help by attempting needle aspiration of this, with or without locally injected anesthesia. She declines all of this, and would rather just have something for pain and follow-up with the surgeon which is who I would recommend following up with. I think it would be reasonable to treat her with some antibiotics to see if that helps this so does not get worse. She is comfortable with that plan. Discharge Plan Triage Chief Complaint: Back ED Provider: Waqar Mcintyre Dx/Rx/DC Orders Clinical Impression: Subcutaneous nodule of back Instructions: Epidermoid Cyst Infect Antibiotics Prescriptions: New tramadol 50 mg tablet 50 mg PO Q6H PRN (Reason: pain) 3 Days Qty: 12 0RF naproxen [Naprosyn] 500 mg tablet 500 mg PO BID PRN (Reason: pain) Qty: 14 0RF sulfamethoxazole-trimeth oprim [Bactrim DS] 800-160 mg tablet 1 tab PO Q12H Qty: 14 0RF Primary Care Provider: Gaurav Osuna Referrals: Gaurav Osuna MD [Primary Care Provider] - Nirmal Akers MD [Med Staff - Active Staff] - As soon as possible Disposition Dispositio (more content not included)... Normal [facility] CNOVon 10-10-2022 CNOV Office Visit ([facility] ) -------- APPLE JETER ([id number]) 1995 F Date Time Provider Department 10/10/22 5:45 PM EN ALY [facility] During your visit today, we recorded the following information about you: Temperature Pulse Respiration Blood pressure 98.1 degrees 88/minute 18/minute 122/78 Weight 102.9 kg En RomoZECHARIAH weston.JEWELRY SALES REPRESENTATIVE 10/10/2022 6:18 PM Signed Subjective HPI Nontoxic-appearing female presents urgent care [...] of care. This note was generated using [employer] software. It may contain errors in wording, punctuation, or spelling. En Aly APRN.BLAYNE Aly APRN.BLAYNE 10/10/2022 6:19 PM Signed Addended by: EN ALY on: 10/10/2022 06:19 PM Modules accepted: Level of Service Allergies As of Date: 10/10/2022 Noted Allergy Reaction VENOM-HONEY BEE 11/29/2021 16 - Unknown Date Reviewed: 10/10/2022 Reviewed by: En Aly APRN.JEWELRY SALES REPRESENTATIVE - Fully Assessed Reason for Visit: Laceration [5467] Cmt: Pt reported washing dishes, laceration to (RT) finger onset 10/10/2022. Primary Visit Diagnosis:Laceration of right hand without foreign body, initial (more content not included)... Normal [facility] HAND RT MIN 3 VIEWSon 2021 HAND RT MIN 3 VIEWS [place] [address] Patient: APPLE JETER Phone#: : 1995 Age: 26 Gender: F Pt. Type: Out Account: [id number] Location: Ordering: WESLEY SANTOYO Exam Date: 11/06/2021/15:13 Family Phys: Charge Code: 946396 Physician: Snyder Order #: [id number] DLP Dose#: PROCEDURE: X-RAY HAND RT COMPLETE MIN 3 VIEWS COMPARISON: None. INDICATIONS: Trauma. FINDINGS: BONES: Deformity of the 5th metacarpal consistent with remote healed fracture. There is no evidence of acute bone abnormality. SOFT TISSUES: Negative. No visible soft tissue swelling. EFFUSION: None visible. OTHER: Negative. CONCLUSION: No acute disease. Dictated by: Tory Nicole MD on 11/06/2021 at 15:21 Approved by: Tory Nicole MD on 11/06/2021 at 15:22 Normal [facility] Coding Summaryon 05-20-2017 Coding Summary CODING DATE: 018 [facility] STATUS: Home PAYOR: Medicaid HMO ADMIT DX: REASON FOR VISIT DX: R05 Cough FINAL DX: PRINCIPAL: J40 Bronchitis, not specified as acute or chronic SECONDARY: J02.9 Acute pharyngitis, unspecified F17.210 Nicotine dependence, cigarettes, uncomplicated PROCEDURES DOCTOR NAME DATE NOTE: The code number assigned matches the documented diagnosis and / or procedure in the patient's chart. However, the narrative phrase printed from the coding software may appear abbreviated, or result in slightly different terminology. Coded By: Dai Ahuja Date Saved: 05/20/2017 05:50 am [facility] Coding Summary CODING DATE: 018 FINAL [facility] STATUS: Home PAYOR: Medicaid HMO ADMIT DX: REASON FOR VISIT DX: R05 Cough FINAL DX: PRINCIPAL: J40 Bronchitis, not specified as acute or chronic SECONDARY: J02.9 Acute pharyngitis, unspecified F17.210 Nicotine dependence, cigarettes, uncomplicated PROCEDURES DOCTOR NAME DATE NOTE: The code number assigned matches the documented diagnosis and / or procedure in the patient's chart. However, the narrative phrase printed from the coding software may appear abbreviated, or result in slightly different terminology. Coded By: Dai Ahuja Date Saved: 05/20/2017 05:49 am [facility] ED Clinical Summaryon 2017 ED Clinical Summary [facility] - Emergency [address] [place] [address] ed Clinical SummaryPERSON INFORMATIONName: APPLE JETER Age: 21 Years Sex: FEMALEDOB: [birth year] MRN: Acct#:Visit Reason: UC - Sore Throat; Cough; COUGH, SORE THROAT, CHEST SORENESS Arrival:05/15/17 22:55:00 Discharge: 05/15/17 23:36:00LOS: 000 00:41 Check In: 05/15/17 22:55:00 Checkout:05/15/17 23:36:00Address:[address] [facility] [address]PSP: Provider, NonePROVIDER INFORMATIONProvider Role Assigned Radha Garcia ED Nurse 05/15/17 23:07:01Mynor Leigh M.D. ED Provider 05/15/17 23:18:11VITALS INFORMATIONVital Sign Triage LatestTemperature TympanicTemperature Temporal ArteryPulse Rate 94 bpm 94 bpmO2 Sat 98 % 98 %Respiratory Rate 18 br/min 18 br/minBlood Pressure 118 mmHg/74 mmHg 118 mmHg/74 mmHgMEDICAL INFORMATIONMedications Given:Medication Dose Routeazithromycin 500 mg POAllergy Information:No Known Medication AllergiesPHYSICIAN DOCUMENTATIONDISCHARGE INFORMATION:Discharge Disposition: HomeDischarge Location: HomePATIENT EDUCATION INFORMATIONInstructions: Acute Bronchitis, Vlgg-pw-IoiyJorxyg-Up:Wi th: Address: When:Kenyetta Dominique [address] [place], [place] [id number] Business (1) Within 3 to 5 daysWith: Address: When:None Provider Within 3 to 5 daysDIAGNOSIS:Bronchitis Comment: Normal [facility] ED Note - Physicianon 2017 ED Note - Physician Patient: APPLE JETER : 21 years Sex: FEMALE : [birth year]Associated Diagnoses: Cough; UC - Sore Throat; BronchitisAuthor: Mynor Leigh M.D.Basic InformationTime seen: Date & time 05/15/17 23:21:00.History source: Patient.Arrival mode: Private vehicle.History limitation: None.Additional information: Chief Complaint from Nursing Triage Note : Chief Hmkswtzbz21/04/18 23:02 EST Chief Complaint cough .History of Present Qcxayyq08-stxx-goz white female with a chief complaint of cough for 2 days and a sore throat. She thinks she's had bronchitis. She's had bronchitis before. Sharp pains in her chest from coughing no other chest pain. No abdominal pain. No nausea vomiting diarrhea. No headache or neck stiffness. No sinus congestion. No earache. No other complaints. Patient does smoke.Review of SystemsAll systems are reviewed and are negative unless stated in history of present illnessHealth StatusAllergies:Allergic Reactions (All)No Known Medication AllergiesCanceled/Inacti ve Reactions (All)No known allergies.Past Medical/ Family/ Social HistoryMedical history:No active or resolved past medical history items have been selected or recorded..Surgical history:No active procedure history items have been selected or recorded..Family history:No family history items have been selected or recorded..Social history:Social & Psychosocial AgdyvpGdxcwiu37/03/2017 Smoking tobacco use: Current Every Day Smoker Type: Cigarettes Number used per day: 1 PPD.Problem list:No qualifying data available.Physical Examination Vital SignsVital Signs05/15/17 23:02 EST Temperature Oral 36.4 DegC Peripheral Pulse Rate 94 bpm Respiratory Rate 18 br/min Systolic Blood Pressure 118 mmHg Diastolic Blood Pressure 74 mmHg SpO2 98 % Oxygen Therapy Room air.Mzgewbolmxfb84/04/18 23:06 EST Height/Length Dosing 144.780 cm Weight Dosing 104.300 kg05/15/17 23:02 EST Height/Length Estimated 144.780 cm Weight Estimated 104.300 kg.21-year-old white female who is awake alert she's oriented ?3 and she is in no acute distress. Mood and affect appropriate for age. Memory and judgment are intact. Well-developed white female. Cranial nerves II through XII are intact. Nares and offers are clear. Nose opinion are normal. Neck is supple no nodes no meningeal signs. Lungs are clear to auscultation without rales or wheeze or rhonchi. Respiratory effort is normal. CV regular rate without murmur no JVD or edema. GI bowel sounds positive soft nontender. No rashes or lesions are noted.Medical Decision MakingDifferential Diagnosis:: Bronchitis, upper respiratory infection, asthma, pneumonia.Documents reviewed: None available.Orders Launch OrdersPharmacy:Zithromax (Order): 500 mg, PO, Once.Impression and PlanSymptoms are consistent with bronchitis which patient has had in the past.DiagnosisComplaint of Cough (PNED [id number], Reason For Visit, Medical)Complaint of UC - Sore Throat (PNED [id number], Reason For Visit, Medical)Bronchitis ([id number] J40, Discharge, Medical)PlanCondition: Stable.Disposition: Discharged: Time 05/15/17 23:25:00, to home.Prescriptions: Launch prescriptionsPharmacy:Zi thromax 250 mg oral tablet (Prescribe): 250 mg, 1 tab(s), PO, Daily, for 4 day(s), 4 tab(s), 0 Refill(s).Patient was given the following educational materials: Acute Bronchitis, Gbia-dy-Aykx.Follow up with: None Provider Within 3 to 5 days; Kenyetta Dominique Within 3 to 5 days, Kenyetta Dominique Within 3 to 5 days; None Provider Within 3 to 5 days.Counseled: Patient, Family, Regarding diagnosis, Regarding diagnostic results, Regarding treatment plan, Regarding prescription, Patient indicated understanding of instructions.[Electronic ally Signed on: 05/16/2017 00:01 EST] Mynor Roca M.D.[Verified on: 05/16/2017 00:01 EST] Mynor Roca M.D. [facility] ED Note-Nursingon 05-16-2017 ED Note-Nursing Pt medicated as orde red. Pt discharged home. Pt stated understanding of discharge instructions and follow up appointments. Pt given 1 prescription to fill at pharmacy of pt choice. Pt walked out of ED into private vehicle with steady gait with no assistance. [facility] ED Note-Nursing pt arrived to ED wit h complaints of cough for about 1 week. Pt states it feels like bronchitis. Pt has a dry cough; occationally is productive but mainly dry. Pt states it has been going on for so long that her abdomen is sore. Pt coughs so much that she induces vomiting. Pt denies but is unsure of her last menstral cycle. Pt vitals stable and is afebrile. Awaiting further orders [facility] ED Patient Education Noteon 05-16-2017 ED Patient Education Note Education UmkaqgznmAuvz-mh-ZileBjv te BronchitisBronchitis is when the airways that extend from the windpipe into the lungs get red, puffy, and painful (inflamed). Bronchitis often causes thick spit (mucus) to develop. This leads to a cough. A cough is the most common symptom of bronchitis.In acute bronchitis, the condition usually begins suddenly and goes away over time (usually in 2 weeks). Smoking, allergies, and asthma can make bronchitis worse. Repeated episodes of bronchitis may cause more lung problems. HOME CARE? Rest.? Drink enough fluids to keep your pee (urine) clear or pale yellow (unless you need to limit fluids as told by your doctor).? Only take eqnf-oyp-wkyjjwx or prescription medicines as told by your doctor.? Avoid smoking and secondhand smoke. These can make bronchitis worse. If you are a smoker, think about using nicotine gum or skin patches. Quitting smoking will help your lungs heal faster.? Reduce the chance of getting bronchitis again by:? Washing your hands often.? Avoiding people with cold symptoms.? Trying not to touch your hands to your mouth, nose, or eyes.? Follow up with your doctor as told.GET HELP IF:Your symptoms do not improve after 1 week of treatment. Symptoms include:? Cough.? Fever.? Coughing up thick spit.? Body aches.? Chest congestion.? Chills.? Shortness of breath.? Sore throat.GET HELP RIGHT AWAY IF:? You have an increased fever.? You have chills.? You have severe shortness of breath.? You have bloody thick spit (sputum).? You throw up (vomit) often.? You lose too much body fluid (dehydration).? You have a severe headache.? You faint.MAKE SURE YOU:? Understand these instructions.? Will watch your condition.? Will get help right away if you are not doing well or get worse.This information is not intended to replace advice given to you by your health care provider. Make sure you discuss any questions you have with your health care provider.Document Released: 10/14/2008 Document Revised: 12/29/2013 Document Reviewed: 10/19/2013[employer] Patient Education ?2017 [employer]. Normal [facility] ED Patient Summaryon 018 ED Patient Summary [facility] - Emergency [address] [place], [place] [address] pATIENT DISCHARGE INSTRUCTIONSPatient InformationName: APPLE JETER MAY Age: 21 YearsDate of : [birth year]MRN: [id number] Visit: UC - Sore Throat; Cough; COUGH, SORE THROAT, CHEST SORENESSArrival Time: 05/15/17 22:55:00[facility]: [facility]: Provider, NoneAttending Physician: Mynor Leigh M.D.Comment:Visit Diagnosis:Diagnoses This Visit Bronchitis (J40) Cough ([id number]) UC - Sore Throat ([id number] -[id number])If you received any narcotics, sedation, or any other medication that causes drowsiness for the next 24 hours, unless otherwise directed:? Do not drive a car.? Do not operate machinery such as power tools, lawn mowers, drills, sewing machines, or stoves? Avoid alcoholic beverages and drugs for allergies, nerves, or sleep? Do not make important personal or business decisions or sign any legal documentsWith: Address: When:Kenyetta Dominique [address] [place], [place] [id number] Business (1) Within 3 to 5 daysWith: Address: When:None Provider Within 3 to 5 daysMedication Information:The exam and treatment you received today in the [facility] Emergency Department were for an urgent problem and are not intended as complete care. It is important for you to follow up with a doctor, nurse practitioner, or physician?s painter assistant for ongoing care. If your symptoms become worse or you do not improve as expected and you are unable to reach your usual health care provider, you should return to the Emergency Department, we are available 24 hours a day.For those patients who have received Radiology results, the interpretation of your X-ray as given to you by our Emergency Department physician is only a preliminary report. The Radiologist will review your films and if there is a change in the diagnosis you will be notified by phone. Please make sure you have provided a working phone number so we can reach you if necessary.In the event that you had a lab culture while you were a patient in the Emergency Department, you will be notified by phone if there is a need to change your antibiotic. Please make sure you have provided a working phone number so we can reach you if necessary.[facility] Emergency Department has provided you with a complete list of medications post discharge. Please inform your primary special education teacher/provider of your visit and for further instruction on these medications. Any specific questions regarding your chronic medications and dosages should be discussed with your primary care physician(s) and/or pharmacist. New MedicationsPrinted Prescriptionsazithromyci n (Zithromax 250 mg oral tablet) 1 tab(s) Oral every day for 4 Days. Refills: 0.Visit InformationAllergies:Sub stance Reaction Symptoms Type CommentsNo Known Medication Allergies DrugVital Signs: Vitals and Measurements this Visit (last charted value for your 05/15/2017 visit) Vital Signs This Visit Temperature Oral: 36.4 DegC Peripheral Pulse Rate: 94 bpm Respiratory Rate: 18 br/min Systolic Blood Pressure: 118 mmHg Diastolic Blood Pressure: 74 mmHg SpO2: 98 % Oxygen Therapy: Room air Measurements This Visit Height/Length Dosin.780 cm Height/Length Estimated: 144.780 cm Weight Dosin.300 kg Weight Estimated: 104.300 kgProblems List:Problem Onset CommentsBronchitisPatien t EducationAcute BronchitisBronchitis is when the airways that extend from the windpipe into the lungs get red, puffy, and painful (inflamed). Bronchitis often causes thick spit (mucus) to develop. This leads to a cough. A cough is the most common symptom of bronchitis.In acute bronchitis, the condition usually begins suddenly and goes away over time (usually in 2 weeks). Smoking, allergies, and asthma can make bronchitis worse. Repeated episodes of bronchitis may cause more lung problems. HOME CARE? Rest.? Drink enough fluids to keep your pee (urine) clear or pale yellow (unless you need to limit fluids as told by your doctor).? Only take [id number] or prescription medicines as told by your doctor.? Avoid smoking and secondhand smoke. These can make bronchitis worse. If you are a smoker, think about using nicotine gum or skin patches. Quitting smoking will help your lungs heal faster.? Reduce the chance of getting bronchitis again by:? Washing your hands often.? Avoiding people with cold symptoms.? Trying not to touch your hands to your mouth, nose, or eyes.? Follow up with your doctor as told.GET HELP IF:Your symptoms do not improve after 1 week of treatment. Symptoms include:? Cough.? Fever.? Coughing up thick spit.? Body aches.? Chest congestion.? Chills.? Shortness of breath.? Sore throat.GET HELP RIGHT AWAY IF:? You have an increased fever.? You have chills.? You have severe shortness of breath.? You have bloody thick spit (sputum).? You throw up (vomit) often.? You lose too much body fluid (dehydration).? You have a severe headache.? You faint.MAKE SURE YOU:? Understand these instructions.? Will watch your condition.? Will get help right away if you are not doing well or get worse.This information is not intended to replace advice given to you by your health care provider. Make sure you discuss any questions you have with your health care provider.Document Released: 10/14/2008 Document Revised: 12/29/2013 Document Reviewed: 10/19/2013[employer] Interactive Patient Education ?2017 [employer]. Viruses or BacteriaWhat?s got you sick?Antibiotics only treat bacterial infections. Viral illnesses cannot be treated with antibiotics. When an antibiotic is not prescribed, ask your healthcare professional for tips on how to relieve symptoms and feel better. Usual CauseIllnessVirusesBacte meggan Antibiotic NeededCold/Runny Nose NOBronchitis/Chest Cold (in otherwise healthy children and adults) NOWhooping Cough YesFlu NOStrep Throat YesSore Throat (except strep) NOFluid in the middle ear (otitis media with effusion) NOUrinary Tract Infection YesAntibiotics Aren?t Always the Answerwww.cdc.gov/getsma rt GET SMART Know When Antibiotics [place] Department of Health and Human ServicesCenters for Disease Control and Prevention January 2014 [facility] Coding Summary.on 04-21-2017 Coding Summary. CODING DATE: FINAL [facility] STATUS: Home (Routine DC) PAYOR: Medicaid EAPG DESCRIPTION 0576 LEVEL I OTHER RESPIRATORY DIAGNOSES ADMIT DX: REASON FOR VISIT DX: R05 Cough FINAL DX: PRINCIPAL: J20.9 Acute bronchitis, unspecified SECONDARY: Z72.0 Tobacco use PYMT PROC EAPG STAT DESCRIPTION DOCTOR NAME DATE NOTE: The code number assigned matches the documented diagnosis and / or procedure in the patient's chart. However, the narrative phrase printed from the coding software may appear abbreviated, or result in slightly different terminology. Coded By: Meena Butler Date Saved: 04/21/2017 08:10 pm [facility] Coding Summary. CODING DATE: [facility] STATUS: Home (Routine DC) PAYOR: Medicaid EAPG DESCRIPTION 0576 LEVEL I OTHER RESPIRATORY DIAGNOSES ADMIT DX: REASON FOR VISIT DX: R05 Cough FINAL DX: PRINCIPAL: J20.9 Acute bronchitis, unspecified SECONDARY: Z72.0 Tobacco use PYMT PROC EAPG STAT DESCRIPTION DOCTOR NAME DATE NOTE: The code number assigned matches the documented diagnosis and / or procedure in the patient's chart. However, the narrative phrase printed from the coding software may appear abbreviated, or result in slightly different terminology. Revised Coded By: Meena Butler Revised Date Saved: 04/21/2017 08:09 pm [facility] ED Clinical Summaryon 2016 ED Clinical Summary (Inserted Image. Anna ble to display) [place] [id number] ED Clinical SummaryPerson Information Name: APPLE JETER/Tasneem Age: 21 Years : 1995 12:00 AM Sex: Female Language:British PCP: Shen Daly MD Marital Status:Single Visit Id: Visit Reason:Throat pain - Adult; Cough; Cough; COUGH, SORE THROAT, FEVER, SOB Speciality: Acuity: 4 Enc Type: Emergency Med Service: Emergency Arrival:04/19/2017 10:15 AM Discharge: 04/19/2017 10:34 AM LOS: 000 00:19 Checkin:04/19/2017 10:15 AM Checkout: 04/19/2017 10:34 AM Dispo Type: Home (Routine DC) EVENTS:Event Name Event Status Request Date/Time Start Date/Time Complete Date/Time Arrive Complete 04/19/2017 10:15 AM 04/19/2017 10:15 AM 04/19/2017 10:15 AM Document Home Meds Complete 04/19/2017 10:15 AM 04/19/2017 10:26 AM 04/19/2017 10:26 AM Triage Complete 04/19/2017 10:15 AM 04/19/2017 10:23 AM 04/19/2017 10:23 AM Bed Assign Complete 04/19/2017 10:17 AM 04/19/2017 10:17 AM 04/19/2017 10:[address] Exam Complete 04/19/2017 10:17 AM 04/19/2017 10:17 AM 04/19/2017 10:17 AM RN Exam Complete 04/19/2017 10:17 AM 04/19/2017 10:25 AM 04/19/2017 10:25 AM Registration Complete 04/19/2017 10:17 AM 04/19/2017 10:24 AM 04/19/2017 10:[address] Exam Complete 04/19/2017 10:20 AM 04/19/2017 10:20 AM 04/19/2017 10:20 AM Reg Complete Request 04/19/2017 10:24 AM Reg Bed Request Complete 04/19/2017 10:24 AM 04/19/2017 10:24 AM 04/19/2017 10:24 AM Discharge Complete 04/19/2017 10:29 AM 04/19/2017 10:34 AM 04/19/2017 10:34 AM Transfer Complete 04/19/2017 10:34 AM 04/19/2017 10:34 AM 04/19/2017 10:34 AM ADDRESS:[address] [facility] [id number] [facility] DOC NOTES: MEDICAL INFORMATION: Prescriptions Given:Prescription Display azithromycin (azithromycin 250 mg Tab 5-day Dose Pack (Z-Vignesh)) = 1 packet(s), Oral, As Directed, as directed on package labeling, X 5 day(s), # 6 tab(s), Refills(s) 0 brompheniramine/dextrome thorphan/PSE (Bromfed DM oral syrup) 10 mL, Oral, QID for 7 day(s), 120 mL, Refill(s) 0 PATIENT EDUCATION INFORMATION: Instructions:Acute Bronchitis Follow up:With: Address: When: [place] [address] [employer] ([employer] In 3 days 04/22/2017 DIAGNOSIS:Acute bronchitis [facility] ED Note-Physicianon 04-19-20 ED Note-Physician Patient: APPLE JETER Age: 21 years Sex: Female : 1995 Associated Diagnoses: None Author: Jeancarlos Khan PA-C Basic Information Time seen: Date & time 04/19/17 10:17:00. History source: Patient. Arrival mode: Private vehicle. History of Present Illness 21-year-old female comes to the ED for evaluation of cough or congestion. She put a three-day history of sinus congestion, sore throat and cough. States cough produces yellow sputum with some occasional blood-tinged sputum. She is an active smoker. No history of chronic lung disease. She's had subjective fevers no documented temperatures. No chest pain or dyspnea. No nausea or vomiting. No prior treatments. Review of Systems Unless otherwise stated in this report or unable to obtain because of patient's clinical or mental status as evidenced by the medical record, the patient's positive and negative responses for review of systems for constitutional, eyes, ENT, cardiovascular, respiratory, gastrointestinal, neurological, genitourinary, musculoskeletal, and integument systems and related systems to the presenting problem are either as stated in the HPI or were not pertinent or were negative for the symptoms and/or complaints related to the presenting medical problem. Health Status Allergies: Allergic Reactions (Selected)No Known Allergies. Medications: (Selected) PrescriptionsPrescribedU ltram 50 mg Tab: 50 mg, Oral, q6hr, PRN as needed for pain, Take one tab by mouth every six hours as needed for pain, # 12 tab(s), Refills(s) 0naproxen 500 mg Tab: 500 mg = 1 tab(s), Oral, BID, with food, # 14 tab(s), Refills(s) 0. Past Medical/ Family/ Social History Medical history: ActiveRight Ankle FxResolvedPolycystic ovaries ([id number] -[id number]): Resolved.. Surgical history: Tonsillectomy ([id number]).. Family history: . Social history: Tobacco use: Regularly, Family/social situation: Lives at home. Physical Examination Vital Signs Vital Signs 04/19/2017 10:20 EST Heart Rate Monitored 100 bpm SpO2 100 % 04/19/2017 10:20 EST Systolic Blood Pressure 119 mmHg Diastolic Blood Pressure 71 mmHg Mean Arterial Pressure, Monitered 87 mmHg 04/19/2017 10:19 EST Respiratory Rate 20 br/min 04/19/2017 10:19 EST Temperature Oral 37.4 DegC HI . Basic Oxygen Information 04/19/2017 10:20 EST SpO2 100 % . no hypoxia. General: patient is awake and alert.resting comfortably in the exam chair. No acute distress.. Skin: skin is warm, dry and normal for ethnicity.. Head: skull is atraumatic.. Neck: midline trachea with no evidence of JVD. Eye: Normal conjunctiva. Ears, nose, mouth and throat: moist mucous membranes, Mild pharyngeal erythema. No tonsillar edema or tonsillar exudates. Uvula is midline. No stridor, trismus or drooling.. Cardiovascular: regular rate and rhythm. Strong peripheral pulses.. Respiratory: . Respirations nonlabored. Congested cough. Back: Normal range of motion. Musculoskeletal: Normal ROM. Neurological: patient is awake, alert and appropriately oriented. GCS 15. No evidence of focal deficits.. Lymphatics: no gross lymphadenopathy appreciated. Psychiatric: patient is cooperative and showing logical thought processes.. Medical Decision Making Orders Launch Order Profile (Selected) . Reexamination/ Reevaluation Patient nontoxic on exam. She does have a congested cough and states she has noted some occasional blood-tinged sputum. She is a smoker. She is placed on a course of antibiotics and cough suppressant. She is discharged with PCP follow-up.Patient was encouraged to return to the ED if symptoms worsen or change. Impression and Plan Diagnosis Acute bronchitis (RWT75-PC J20.9, Discharge, Medical) Plan Condition: Improved, Stable. Disposition: Discharged, Dispositioned by: Jeancarlos Morales, Patient care was supervised by: Lula Oscar DO. Prescriptions: Launch prescriptions Pharmacy:azithromycin 250 mg Tab 5-day Dose Pack (Z-Vignesh) (Prescribe): = 1 packet(s), Oral, As Directed, as directed on package labeling, X 5 day(s), # 6 tab(s), Refills(s) 0Bromfed DM oral syrup (Prescribe): 10 mL, Oral, QID for 7 day(s), 120 mL, Refill(s) 0. Patient was given the following educational materials: Acute Bronchitis. Follow up with: Shen Daly In 3 days 04/22/2017. Counseled: Patient, Regarding diagnosis, Regarding diagnostic results, Regarding treatment plan, Regarding prescription, Patient indicated understanding of instructions. Addendum Patient was treated and evaluated by the physician painter assistant. The attending physician was in the emergency department at all times and supervised care. The case was discussed with the attending physician and diagnostics were reviewed as needed.This report was transcribed using voice recognition software. Every effort was made to ensure accuracy, however, inadvertently computerized copy coordinator mistakes may be present. [facility] Comment on above: Result Comment: Elec tronically Signed By: Jeancarlos Khan PA-C\.br\Date and Time Signed: 04/19/17 10:23 EST\.br\Electronically Co-Signed By: Lula Oscar DO\.br\Date and Time Co-Signed: 04/19/17 11:08 EST ED Patient Education Noteon 04-19-2017 ED Patient Education Note Patient Education Materials Follows:MedicineAcute BronchitisBronchitis is inflammation of the airways that extend from the windpipe into the lungs (bronchi). The inflammation often causes mucus to develop. This leads to a cough, which is the most common symptom of bronchitis. In acute bronchitis, the condition usually develops suddenly and goes away over time, usually in a couple weeks. Smoking, allergies, and asthma can make bronchitis worse. Repeated episodes of bronchitis may cause further lung problems. CAUSESAcute bronchitis is most often caused by the same virus that causes a cold. The virus can spread from person to person (contagious) through coughing, sneezing, and touching contaminated objects.SIGNS AND SYMPTOMS? Cough. ?? Fever. ?? Coughing up mucus. ?? Body aches. ?? Chest congestion. ?? Chills. ?? Shortness of breath. ?? Sore throat. ?DIAGNOSISAcute bronchitis is usually diagnosed through a physical exam. Your health care provider will also ask you questions about your medical history. Tests, such as chest X-rays, are sometimes done to rule out other conditions. TREATMENTAcute bronchitis usually goes away in a couple weeks. Oftentimes, no medical treatment is necessary. Medicines are sometimes given for relief of fever or cough. Antibiotic medicines are usually not needed but may be prescribed in certain situations. In some cases, an inhaler may be recommended to help reduce shortness of breath and control the cough. A cool mist vaporizer may also be used to help thin bronchial secretions and make it easier to clear the chest. HOME CARE INSTRUCTIONS? Get plenty of rest. ?? Drink enough fluids to keep your urine clear or pale yellow (unless you have a medical condition that requires fluid restriction). Increasing fluids may help thin your respiratory secretions (sputum) and reduce chest congestion, and it will prevent dehydration. ?? Take medicines only as directed by your health care provider. ? If you were prescribed an antibiotic medicine, finish it all even if you start to feel better. ? Avoid smoking and secondhand smoke. Exposure to cigarette smoke or irritating chemicals will make bronchitis worse. If you are a smoker, consider using nicotine gum or skin patches to help control withdrawal symptoms. Quitting smoking will help your lungs heal faster. ?? Reduce the chances of another bout of acute bronchitis by washing your hands frequently, avoiding people with cold symptoms, and trying not to touch your hands to your mouth, nose, or eyes. ?? Keep all follow-up visits as directed by your health care provider. ?SEEK MEDICAL CARE IF:Your symptoms do not improve after 1 week of treatment. SEEK IMMEDIATE MEDICAL CARE IF:? You develop an increased fever or chills. ?? You have chest pain. ?? You have severe shortness of breath.? You have bloody sputum. ? ? You develop dehydration.? You faint or repeatedly feel like you are going to pass out.? You develop repeated vomiting.? You develop a severe headache. MAKE SURE YOU:? Understand these instructions. ? Will watch your condition.? Will get help right away if you are not doing well or get worse.Document Released: 06/05/2005 Document Revised: 09/12/2014 Document Reviewed: 10/19/2013ExitCare? Patient Information ?2015 [employer]. This information is not intended to replace advice given to you by your health care provider. Make sure you discuss any questions you have with your health care provider. [facility] ED Patient Summaryon 017 ED Patient Summary (Inserted Image. Anna ble to display) [place] [id number] Patient Discharge Instructions Person Information Name: APPLE JETER Age: 21 Years Date: 04/19/2017 10:15 AMDischarge Diagnosis: Acute bronchitis Primary Care Physician: Shen Daly MD Provider InformationPrimary Provider: Raul Oscar DO Blunger:Jeancarlos Khan PA-C The exam and treatment you received in the Emergency Department were for an urgent problem and are not intended as complete care. It is important that you follow up with a doctor, nurse practitioner, or physician?s painter assistant for ongoing care. If your symptoms become worse or you do not improve as expected and you are unable to reach your usual health care provider, you should return to the Emergency Department. We are available 24 hours a day. APPLE JETER has been given the following list of patient education materials, prescriptions and follow-up instructions: Follow-up Instructions:With: Address: When: Shen [address] [place] [id number] Business (1) In 3 days 04/22/2017 In the event that this physician does not participate in your insurance network, please consult with your insurance company to find a nearby participating provider. Patient Education Materials:Acute Bronchitis Medications Given:Medication Dose Route No medications found. Medication Information:New MedicationsPrinted Prescriptionsazithromyci n (azithromycin 250 mg Tab 5-day Dose Pack (Z-Vignesh)) 1 Packets By Mouth As Directed for 5 Days. as directed on package labeling. Refills: 0.brompheniramine/dextro methorphan/PSE (Bromfed DM oral syrup) 10 Milliliter By Mouth 4 times a day for 7 Days. Refills: 0.Comment: Pharmacy Information: Thank you for choosing [facility] ent Education Materials: Acute BronchitisBronchitis is inflammation of the airways that extend from the windpipe into the lungs (bronchi). The inflammation often causes mucus to develop. This leads to a cough, which is the most common symptom of bronchitis. In acute bronchitis, the condition usually develops suddenly and goes away over time, usually in a couple weeks. Smoking, allergies, and asthma can make bronchitis worse. Repeated episodes of bronchitis may cause further lung problems. CAUSESAcute bronchitis is most often caused by the same virus that causes a cold. The virus can spread from person to person (contagious) through coughing, sneezing, and touching contaminated objects.SIGNS AND SYMPTOMS? Cough. ?? Fever. ?? Coughing up mucus. ?? Body aches. ?? Chest congestion. ?? Chills. ?? Shortness of breath. ?? Sore throat. ?DIAGNOSISAcute bronchitis is usually diagnosed through a physical exam. Your health care provider will also ask you questions about your medical history. Tests, such as chest X-rays, are sometimes done to rule out other conditions. TREATMENTAcute bronchitis usually goes away in a couple weeks. Oftentimes, no medical treatment is necessary. Medicines are sometimes given for relief of fever or cough. Antibiotic medicines are usually not needed but may be prescribed in certain situations. In some cases, an inhaler may be recommended to help reduce shortness of breath and control the cough. A cool mist vaporizer may also be used to help thin bronchial secretions and make it easier to clear the chest. HOME CARE INSTRUCTIONS? Get plenty of rest. ?? Drink enough fluids to keep your urine clear or pale yellow (unless you have a medical condition that requires fluid restriction). Increasing fluids may help thin your respiratory secretions (sputum) and reduce chest congestion, and it will prevent dehydration. ?? Take medicines only as directed by your health care provider. ? If you were prescribed an antibiotic medicine, finish it all even if you start to feel better. ? Avoid smoking and secondhand smoke. Exposure to cigarette smoke or irritating chemicals will make bronchitis worse. If you are a smoker, consider using nicotine gum or skin patches to help control withdrawal symptoms. Quitting smoking will help your lungs heal faster. ?? Reduce the chances of another bout of acute bronchitis by washing your hands frequently, avoiding people with cold symptoms, and trying not to touch your hands to your mouth, nose, or eyes. ?? Keep all follow-up visits as directed by your health care provider. ?SEEK MEDICAL CARE IF:Your symptoms do not improve after 1 week of treatment. SEEK IMMEDIATE MEDICAL CARE IF:? You develop an increased fever or chills. ?? You have chest pain. ?? You have severe shortness of breath.? You have bloody sputum. ? ? You develop dehydration.? You faint or repeatedly feel like you are going to pass out.? You develop repeated vomiting.? You develop a severe headache. MAKE SURE YOU:? Understand these instructions. ? Will watch your condition.? Will get help right away if you are not doing well or get worse.Document Released: 06/05/2005 Document Revised: 09/12/2014 Document Reviewed: 10/19/2013ExitCare? Patient Information ?2014 [employer]. This information is not intended to replace advice given to you by your health care provider. Make sure you discuss any questions you have with your health care provider.BENJAMIN Orr JESSICA M , have received the following patient education materials/instructions and have verbalized understanding: Patient Education Materials: Acute Bronchitis Follow-up Instructions: With: Address: When: Shen [address] [facility] [place] [address] [employer] [facility] In 3 days 04/22/2017 Prescriptions: [azithromycin (azithromycin 250 mg Tab 5-day Dose Pack (Z-Vignesh))] [brompheniramine/dextrom ethorphan/PSE (Bromfed DM oral syrup)] Patient Signature Date Clinician/Nurse Signature Date 04/19/17 10:34:48 [facility] Coding Summary.on 04-09-2017 Coding Summary. CODING DATE: 017 FINAL [facility] STATUS: Home (Routine DC) PAYOR: Medicaid EAPG DESCRIPTION 0410 URINALYSIS 0471 PLAIN FILM 0661 LEVEL II OTHER MUSCULOSKELETAL SYSTEM & CONNECTIVE TISSUE DIAGNOSES ADMIT DX: REASON FOR VISIT DX: M54.2 Cervicalgia M54.5 Low back pain FINAL DX: PRINCIPAL: S39.012A Strain of muscle, fascia and tendon of lower back, initial encounter SECONDARY: S16.1XXA Strain of muscle, fascia and tendon at neck level, initial encounter W10.9XXA Fall (on) (from) unspecified stairs and steps, initial encounter F17.210 Nicotine dependence, cigarettes, uncomplicated E66.01 Morbid (severe) obesity due to excess calories Z68.38 Body mass index (BMI) 38.0-38.9, adult PYMT PROC EAPG STAT DESCRIPTION DOCTOR NAME DATE NOTE: The code number assigned matches the documented diagnosis and / or procedure in the patient's chart. However, the narrative phrase printed from the coding software may appear abbreviated, or result in slightly different terminology. Revised Coded By: Roxana Tuttle Revised Date Saved: 04/09/2017 12:48 pm Normal [facility] ED Note-Physicianon 04-09-20 ED Note-Physician Patient: APPLE JETER Age: 21 years Sex: Female : 1995 Associated Diagnoses: None Author: Osman Lowery PA-C Basic Information Time seen: Date & time 04/07/17 23:14:00. History source: Patient. Arrival mode: Private vehicle, walking. History limitation: None. Additional information: Chief Complaint from Nursing Triage Note : Chief Complaint 04/07/2017 22:25 EST Chief Complaint pt states she missed a step, slid and hit neck and lower back. worse with movement. stands unable to stand without pain. sharp 7/10 pain. . History of Present Illness This is a morbidly obese 21-year-old female who presents to the emergency department with a chief complaint of neck pain and low back pain that occurred when she slid down 5 steps on her back. Patient states she missed a step and slid down the steps causing pain to the neck and the low back. She denies loss of consciousness, she has been ambulatory, states initially she didn't have much pain but is going more stiff the longer she waits. She denies any urinary frequency, she denies any abdominal pain chest pain or extremity pain. Review of Systems Unless otherwise stated in this report the patient's positive and negative responses for review of systems for constitutional, eyes, ENT, cardiovascular, respiratory, gastrointestinal, neurological, genitourinary, musculoskeletal, and integument systems and related systems to the presenting problem are either as stated in the HPI or were not pertinent or were negative for the symptoms and/or complaints related to the presenting medical problem. Health Status Allergies: Allergic Reactions (Selected)No Known Allergies. Medications: None. Past Medical/ Family/ Social History Medical history: ActiveRight Ankle FxResolvedPolycystic ovaries ([id number]): Resolved.. Surgical history: Tonsillectomy ([id number]).. Family history: . Social history: Social & Psychosocial OqjeqbJenppux62/23/2013 Risk Assessment: Denies Alcohol UseSubstance Abuse03/31/2013 Risk Assessment: Denies Substance JvmbgOurruoo75/23/2013 Risk Assessment: Medium Risk Comment: smokes 10 cigs per day. - 04/16/2015 20:50 - Alison FRANCISCO, Loyda Moss Problem list: Active Problems (3)Right Ankle Fx Smoker Tobacco use . Physical Examination Vital Signs Vital Signs 04/07/2017 22:25 EST Temperature Oral 36.9 DegC Peripheral Pulse Rate 96 bpm Respiratory Rate 18 br/min Systolic Blood Pressure 130 mmHg Diastolic Blood Pressure 74 mmHg SpO2 99 % . Measurements 04/07/2017 22:25 EST Height/Length Measured 168 cm Body Mass Index Measured 38.97 kg/m2 Weight Measured 110 kg . Basic Oxygen Information 04/07/2017 22:25 EST SpO2 99 % . General: Alert, no acute distress. Skin: Warm, dry, pink, intact. Head: Normocephalic, atraumatic. Neck: Mild paravertebral tenderness with firm palpation, no crepitus, no step-offs or deformities. Eye: Pupils are equal, round and reactive to light, extraocular movements are intact, normal conjunctiva. Ears, nose, mouth and throat: Tympanic membranes clear, oral mucosa moist, no pharyngeal erythema or exudate. Cardiovascular: Regular rate and rhythm, No murmur. Respiratory: Lungs are clear to auscultation, respirations are non-labored, breath sounds are equal. Chest wall: No tenderness, No deformity. Back: Diffuse tenderness across the lumbar musculature, no point tenderness noted over the cervical, thoracic, or lumbar vertebral bodies. Full range of motion is appreciated, however the patient does have tenderness with forward flexion and lateral rotation of both the right and the left. Able to ambulate on tiptoes and heels.. Musculoskeletal: Normal ROM, normal strength, no tenderness. Gastrointestinal: Soft, Nontender, Non distended. Neurological: Alert and oriented to person, place, time, and situation, No focal neurological deficit observed, normal sensory observed, normal motor observed. Lymphatics: No lymphadenopathy. Psychiatric: Cooperative, appropriate mood & affect. Medical Decision Making Orders Launch Orders Laboratory: Urine (Order): Urine, Stat collect, 04/07/2017 23:40 EST, Nurse collect, Print Label By Order LocationRadiology:Lumbos acral Spine XR 2 or 3 Views (Order): 04/07/2017 23:40 EST, Stat, Transport Mode: Wheelchair, Reason: Pain, Non Traumatic, No, pp_set_radiology_subspec ialty, EmergencyC-Spine 2 or 3 Views (Order): 04/07/2017 23:39 EST, Stat, Transport Mode: Wheelchair, Reason: Neck Pain, No, pp_set_radiology_subspec ialty, Emergency, Launch Orders Pharmacy:[facility] Tab (Order): 4 tab(s), Tab, Oral, Once PRN Pain, STAT, Start date 04/08/2017 00:51 EST. Radiology results: 04/08/2017 01:07; Osman Lowery PA-C; Negative; Three-view cervical spine, No fracture, subluxation or other acute abnormality 04/08/2017 01:07; Osman Lowery PA-C; Negative; 3 view lumbosacral spine, No fracture, subluxation or other acute abnormality. Reexamination/ Reevaluation Vital signs Basic Oxygen Information 04/07/2017 22:25 EST SpO2 99 % Impression and Plan Diagnosis Accidental fall on or from stairs or steps ([id number]-BC W10.8XXA, Discharge, Emergency medicine, Medical) Lumbosacral strain ([id number] S39.012A, Discharge, Emergency medicine, Medical) Cervical strain (MDJ11-NM S16.1XXA, Discharge, Emergency medicine, Medical) Plan Condition: Improved, Stable. Disposition: Discharged: Time 04/08/17 00:46:00, to home. Prescriptions: Launch prescriptions Pharmacy:Robaxin-750 oral tablet (Prescribe): 750 = 1 mg tab(s), Oral, TID, X 7 day(s), # 21 tab(s), Refills(s) 0Ultram 50 mg Tab (Prescribe): 50 mg, Oral, q6hr, PRN as needed for pain, Take one tab by mouth every six hours as needed for pain, # 12 tab(s), Refills(s) 0naproxen 500 mg Tab (Prescribe): 500 = 1 mg tab(s), Oral, BID, with food, # 14 tab(s), Refills(s) 0. Patient was given the following educational materials: Cervical Sprain, Lumbosacral Strain, Lumbosacral Strain, Cervical Sprain. Follow up with: Shen Daly In 3 days 04/11/2017. Counseled: Patient, Family, Regarding diagnosis, Regarding diagnostic results, Regarding treatment plan, Regarding prescription, Patient indicated understanding of instructions. [facility] Comment on above: Result Comment: Elec tronically Signed By: Osman Lowery PA-C\.br\Date and Time Signed: 04/08/17 01:08 EST\.br\Electronically Co-Signed By: Jaki Lopez M.D.\.br\Date and Time Co-Signed: 04/09/17 12:15 EST ED Clinical Summaryon 2016 ED Clinical Summary (Inserted Image. Anna ble to display) [place] [address] ED Clinical SummaryPerson Information Name: APPLE JETER/[facility] Age: 21 Years : 1995 12:00 AM Sex: Female Language:British PCP: Shen Daly MD Marital Status:Single Visit Id: Visit Reason:Back injury; Neck injury; Fall; Neck pain; Back pain; BACK PAIN Speciality: Acuity: 4 Enc Type: Emergency Med Service: Emergency Arrival:04/07/2017 10:07 PM Discharge: 04/08/2017 1:09 AM LOS: 000 03:02 Checkin:04/07/2017 10:07 PM Checkout: 04/08/2017 1:09 AM Dispo Type: Home (Routine DC) EVENTS:Event Name Event Status Request Date/Time Start Date/Time Complete Date/Time Arrive Complete 04/07/2017 10:07 PM 04/07/2017 10:07 PM 04/07/2017 10:07 PM Document Home Meds Complete 04/07/2017 10:07 PM 04/07/2017 11:21 PM 04/07/2017 11:21 PM Triage Complete 04/07/2017 10:07 PM 04/07/2017 10:29 PM 04/07/2017 10:29 PM Bed Assign Complete 04/07/2017 11:08 PM 04/07/2017 11:08 PM 04/07/2017 11:[address] Exam Complete 04/07/2017 11:08 PM 04/07/2017 11:14 PM 04/07/2017 11:14 PM RN Exam Complete 04/07/2017 11:08 PM 04/07/2017 11:20 PM 04/07/2017 11:20 PM Registration Complete 04/07/2017 11:14 PM 04/07/2017 11:25 PM 04/07/2017 11:[address] Exam Complete 04/07/2017 11:16 PM 04/07/2017 11:16 PM 04/07/2017 11:16 PM Reg Complete Request 04/07/2017 11:25 PM Reg Bed Request Complete 04/07/2017 11:25 PM 04/07/2017 11:25 PM 04/07/2017 11:25 PM X-Ray Complete 04/07/2017 11:40 PM 04/08/2017 12:15 AM 04/08/2017 12:33 AM Pending Labs Complete 04/07/2017 11:40 PM 04/08/2017 12:14 AM Lab Complete 04/07/2017 11:40 PM 04/08/2017 12:14 AM Urine Collect Complete 04/07/2017 11:40 PM 04/08/2017 12:14 AM Wet Read Request 04/08/2017 12:33 AM Meds Admin Complete 04/08/2017 12:52 AM 04/08/2017 1:08 AM Discharge Complete 04/08/2017 12:55 AM 04/08/2017 1:09 AM 04/08/2017 1:09 AM Transfer Complete 04/08/2017 1:09 AM 04/08/2017 1:09 AM 04/08/2017 1:09 AM ADDRESS:[address] [place] [address] [place] [address] [facility] NOTES: MEDICAL INFORMATION: Prescriptions Given:Prescription Display methocarbamol (Robaxin-750 oral tablet) 750 mg = 1 tab(s), Oral, TID, X 7 day(s), # 21 tab(s), Refills(s) 0 naproxen (naproxen 500 mg Tab) 500 mg = 1 tab(s), Oral, BID, with food, # 14 tab(s), Refills(s) 0 tramadol (Ultram 50 mg Tab) 50 mg, Oral, q6hr, PRN as needed for pain, Take one tab by mouth every six hours as needed for pain, # 12 tab(s), Refills(s) 0 PATIENT EDUCATION INFORMATION: Instructions:Lumbosacral Strain; Cervical Sprain Follow up:With: Address: When: Shen [address] [place] [address] [employer] In 3 days 04/11/2017 DIAGNOSIS:Accidental fall on or from stairs or steps; Cervical strain; Lumbosacral strain Normal [facility] ED Patient Education Noteon 04-08-2017 ED Patient Education Note Patient Education Materials Follows:MedicineCervical SprainA cervical sprain is an injury in the neck in which the strong, fibrous tissues (ligaments) that connect your neck bones stretch or tear. Cervical sprains can range from mild to severe. Severe cervical sprains can cause the neck vertebrae to be unstable. This can lead to damage of the spinal cord and can result in serious nervous system problems. The amount of time it takes for a cervical sprain to get better depends on the cause and extent of the injury. Most cervical sprains heal in 1 to 3 weeks. CAUSESSevere cervical sprains may be caused by: ? Contact sport injuries (such as from football, rugby, wrestling, hockey, auto racing, gymnastics, diving, martial arts, or boxing). ?? Motor vehicle collisions. ?? Whiplash injuries. This is an injury from a sudden forward and backward whipping movement of the head and neck.?? Falls. ?Mild cervical sprains may be caused by: ? Being in an awkward position, such as while cradling a telephone between your ear and shoulder. ?? Sitting in a chair that does not offer proper support. ?? Working at a poorly designed computer station. ?? Looking up or down for long periods of time. ?SYMPTOMS? Pain, soreness, stiffness, or a burning sensation in the front, back, or sides of the neck. This discomfort may develop immediately after the injury or slowly, 24 hours or more after the injury. ?? Pain or tenderness directly in the middle of the back of the neck. ?? Shoulder or upper back pain. ?? Limited ability to move the neck. ?? Headache. ?? Dizziness. ?? Weakness, numbness, or tingling in the hands or arms. ?? Muscle spasms. ?? Difficulty swallowing or chewing. ?? Tenderness and swelling of the neck. ?DIAGNOSISMost of the time your health care provider can diagnose a cervical sprain by taking your history and doing a physical exam. Your health care provider will ask about previous neck injuries and any known neck problems, such as arthritis in the neck. X-rays may be taken to find out if there are any other problems, such as with the bones of the neck. Other tests, such as a CT scan or MRI, may also be needed. TREATMENTTreatment depends on the severity of the cervical sprain. Mild sprains can be treated with rest, keeping the neck in place (immobilization), and pain medicines. Severe cervical sprains are immediately immobilized. Further treatment is done to help with pain, muscle spasms, and other symptoms and may include:? Medicines, such as pain relievers, numbing medicines, or muscle relaxants. ?? Physical therapy. This may involve stretching exercises, strengthening exercises, and posture training. Exercises and improved posture can help stabilize the neck, strengthen muscles, and help stop symptoms from returning. ?HOME CARE INSTRUCTIONS? Put ice on the injured area. ?? Put ice in a plastic bag. ?? Place a towel between your skin and the bag. ?? Leave the ice on for 15?20 minutes, 3?4 times a day. ?? If your injury was severe, you may have been given a cervical collar to wear. A cervical collar is a two-piece collar designed to keep your neck from moving while it heals.? Do not remove the collar unless instructed by your health care provider. ? If you have long hair, keep it outside of the collar.? Ask your health care provider before making any adjustments to your collar. Minor adjustments may be required over time to improve comfort and reduce pressure on your chin or on the back of your head. ? If?you are allowed to remove the collar for cleaning or bathing, follow your health care provider's instructions on how to do so safely. ? Keep your collar clean by wiping it with mild soap and water and drying it completely. If the collar you have been given includes removable pads, remove them every 1?2 days and hand wash them with soap and water. Allow them to air dry. They should be completely dry before you wear them in the collar.? If you are allowed to remove the collar for cleaning and bathing, wash and dry the skin of your neck. Check your skin for irritation or sores. If you see any, tell your health care provider.? Do not drive while wearing the collar. ?? Only take [id number] or prescription medicines for pain, discomfort, or fever as directed by your health care provider. ?? Keep all follow-up appointments as directed by your health care provider. ?? Keep all physical therapy appointments as directed by your health care provider. ?? Make any needed adjustments to your workstation to promote good posture. ?? Avoid positions and activities that make your symptoms worse. ?? Warm up and stretch before being active to help prevent problems. ? SEEK MEDICAL CARE IF:? Your pain is not controlled with medicine. ?? You are unable to decrease your pain medicine over time as planned. ?? Your activity level is not improving as expected. ?SEEK IMMEDIATE MEDICAL CARE IF:? You develop any bleeding.? You develop stomach upset.? You have signs of an allergic reaction to your medicine. ?? Your symptoms get worse. ?? You develop new, unexplained symptoms. ?? You have numbness, tingling, weakness, or paralysis in any part of your body. ?MAKE SURE YOU:? Understand these instructions. ? Will watch your condition.? Will get help right away if you are not doing well or get worse.Document Released: 02/23/2008 Document Revised: 05/03/2014 Document Reviewed: 11/03/2013ExitCare? Patient Information ?2015 [employer], [employer]. This information is not intended to replace advice given to you by your health care provider. Make sure you discuss any questions you have with your health care provider.Musculoskeletal Lumbosacral StrainLumbosacral strain is a strain of any of the parts that make up your lumbosacral vertebrae. Your lumbosacral vertebrae are the bones that make up the lower third of your backbone. Your lumbosacral vertebrae are held together by muscles and tough, fibrous tissue (ligaments). CAUSESA sudden blow to your back can cause lumbosacral strain. Also, anything that causes an excessive stretch of the muscles in the low back can cause this strain. This is typically seen when people exert themselves strenuously, fall, lift heavy objects, bend, or crouch repeatedly.RISK FACTORS? Physically demanding work.? Participation in pushing or pulling sports or sports that require a sudden twist of the back (tennis, golf, baseball).? Weight lifting.? Excessive lower back curvature.? Forward-tilted pelvis.? Weak back or abdominal muscles or both.? Tight hamstrings.SIGNS AND SYMPTOMSLumbosacral strain may cause pain in the area of your injury or pain that moves (radiates) down your leg. DIAGNOSISYour health care provider can often diagnose lumbosacral strain through a physical exam. In some cases, you may need tests such as X-ray exams. TREATMENTTreatment for your lower back injury depends on many factors that your clinician will have to evaluate. However, most treatment will include the use of anti-inflammatory medicines.HOME CARE INSTRUCTIONS? Avoid hard physical activities (tennis, racquetball, waterskiing) if you are not in proper physical condition for it. This may aggravate or create problems.? If you have a back problem, avoid sports requiring sudden body movements. Swimming and walking are generally safer activities.? Maintain good posture.? Maintain a healthy weight.? For acute conditions, you may put ice on the injured area.? Put ice in a plastic bag.? Place a towel between your skin and the bag.? Leave the ice on for 20 minutes, 2?3 times a day.? When the low back starts healing, stretching and strengthening exercises may be recommended.SEEK MEDICAL CARE IF:? Your back pain is getting worse.? You experience severe back pain not relieved with medicines.SEEK IMMEDIATE MEDICAL CARE IF:? You have numbness, tingling, weakness, or problems with the use of your arms or legs.? There is a change in bowel or bladder control.? You have increasing pain in any area of the body, including your belly (abdomen).? You notice shortness of breath, dizziness, or feel faint.? You feel sick to your stomach (nauseous), are throwing up (vomiting), or become sweaty.? You notice discoloration of your toes or legs, or your feet get very cold.MAKE SURE YOU:? Understand these instructions. ? Will watch your condition.? Will get help right away if you are not doing well or get worse.Document Released: 02/05/2006 Document Revised: 05/03/2014 Document Reviewed: 12/15/2013ExitCare? Patient Information ?2014 [employer]. This information is not intended to replace advice given to you by your health care provider. Make sure you discuss any questions you have with your health care provider. Normal [facility] ED Patient Summaryon 017 ED Patient Summary (Inserted Image. Anna ble to display) [address] [address] Patient Discharge Instructions Person Information Name: APPLE JETER Age: 21 Years Date: 04/07/2017 10:07 PMDischarge Diagnosis: Accidental fall on or from stairs or steps; Cervical strain; Lumbosacral strain Primary Care Physician: Shen Daly MD Provider InformationPrimary Provider: Jaki Lopez M.D. Blunger:Osman Lowery PA-C The exam and treatment you received in the Emergency Department were for an urgent problem and are not intended as complete care. It is important that you follow up with a doctor, nurse practitioner, or physician?s painter assistant for ongoing care. If your symptoms become worse or you do not improve as expected and you are unable to reach your usual health care provider, you should return to the Emergency Department. We are available 24 hours a day. APPLE JETER has been given the following list of patient education materials, prescriptions and follow-up instructions: Follow-up Instructions:With: Address: When: Shen Daly [address] [place] [address] Business (1) In 3 days 04/11/2017 In the event that this physician does not participate in your insurance network, please consult with your insurance company to find a nearby participating provider. Patient Education Materials:Lumbosacral Strain; Cervical Sprain Medications Given:Medication Dose Route acetaminophen-hydrocodon e 4.00 tab(s) Oral Medication Information:New MedicationsPrinted Prescriptionsmethocarbam ol (Robaxin-750 oral tablet) 1 Tabs By Mouth 3 times a day for 7 Days. Refills: 0.naproxen (naproxen 500 mg Tab) 1 Tabs By Mouth 2 times a day. with food. Refills: 0.tramadol (Ultram 50 mg Tab) 50 Milligram By Mouth every 6 hours as needed as needed for pain. Take one tab by mouth every six hours as needed for pain. Refills: 0.Comment: Pharmacy Information: Thank you for choosing [facility] Education Materials: Lumbosacral StrainLumbosacral strain is a strain of any of the parts that make up your lumbosacral vertebrae. Your lumbosacral vertebrae are the bones that make up the lower third of your backbone. Your lumbosacral vertebrae are held together by muscles and tough, fibrous tissue (ligaments). CAUSESA sudden blow to your back can cause lumbosacral strain. Also, anything that causes an excessive stretch of the muscles in the low back can cause this strain. This is typically seen when people exert themselves strenuously, fall, lift heavy objects, bend, or crouch repeatedly.RISK FACTORS? Physically demanding work.? Participation in pushing or pulling sports or sports that require a sudden twist of the back (tennis, golf, baseball).? Weight lifting.? Excessive lower back curvature.? Forward-tilted pelvis.? Weak back or abdominal muscles or both.? Tight hamstrings.SIGNS AND SYMPTOMSLumbosacral strain may cause pain in the area of your injury or pain that moves (radiates) down your leg. DIAGNOSISYour health care provider can often diagnose lumbosacral strain through a physical exam. In some cases, you may need tests such as X-ray exams. TREATMENTTreatment for your lower back injury depends on many factors that your clinician will have to evaluate. However, most treatment will include the use of anti-inflammatory medicines.HOME CARE INSTRUCTIONS? Avoid hard physical activities (tennis, racquetball, waterskiing) if you are not in proper physical condition for it. This may aggravate or create problems.? If you have a back problem, avoid sports requiring sudden body movements. Swimming and walking are generally safer activities.? Maintain good posture.? Maintain a healthy weight.? For acute conditions, you may put ice on the injured area.? Put ice in a plastic bag.? Place a towel between your skin and the bag.? Leave the ice on for 20 minutes, 2?3 times a day.? When the low back starts healing, stretching and strengthening exercises may be recommended.SEEK MEDICAL CARE IF:? Your back pain is getting worse.? You experience severe back pain not relieved with medicines.SEEK IMMEDIATE MEDICAL CARE IF:? You have numbness, tingling, weakness, or problems with the use of your arms or legs.? There is a change in bowel or bladder control.? You have increasing pain in any area of the body, including your belly (abdomen).? You notice shortness of breath, dizziness, or feel faint.? You feel sick to your stomach (nauseous), are throwing up (vomiting), or become sweaty.? You notice discoloration of your toes or legs, or your feet get very cold.MAKE SURE YOU:? Understand these instructions. ? Will watch your condition.? Will get help right away if you are not doing well or get worse.Document Released: 02/05/2006 Document Revised: 05/03/2014 Document Reviewed: 12/15/2013ExitCare? Patient Information ?2015 [employer]. This information is not intended to replace advice given to you by your health care provider. Make sure you discuss any questions you have with your health care provider.Cervical SprainA cervical sprain is an injury in the neck in which the strong, fibrous tissues (ligaments) that connect your neck bones stretch or tear. Cervical sprains can range from mild to severe. Severe cervical sprains can cause the neck vertebrae to be unstable. This can lead to damage of the spinal cord and can result in serious nervous system problems. The amount of time it takes for a cervical sprain to get better depends on the cause and extent of the injury. Most cervical sprains heal in 1 to 3 weeks. CAUSESSevere cervical sprains may be caused by: ? Contact sport injuries (such as from football, rugby, wrestling, hockey, auto racing, gymnastics, diving, martial arts, or boxing). ?? Motor vehicle collisions. ?? Whiplash injuries. This is an injury from a sudden forward and backward whipping movement of the head and neck.?? Falls. ?Mild cervical sprains may be caused by: ? Being in an awkward position, such as while cradling a telephone between your ear and shoulder. ?? Sitting in a chair that does not offer proper support. ?? Working at a poorly designed computer station. ?? Looking up or down for long periods of time. ?SYMPTOMS? Pain, soreness, stiffness, or a burning sensation in the front, back, or sides of the neck. This discomfort may develop immediately after the injury or slowly, 24 hours or more after the injury. ?? Pain or tenderness directly in the middle of the back of the neck. ?? Shoulder or upper back pain. ?? Limited ability to move the neck. ?? Headache. ?? Dizziness. ?? Weakness, numbness, or tingling in the hands or arms. ?? Muscle spasms. ?? Difficulty swallowing or chewing. ?? Tenderness and swelling of the neck. ?DIAGNOSISMost of the time your health care provider can diagnose a cervical sprain by taking your history and doing a physical exam. Your health care provider will ask about previous neck injuries and any known neck problems, such as arthritis in the neck. X-rays may be taken to find out if there are any other problems, such as with the bones of the neck. Other tests, such as a CT scan or MRI, may also be needed. TREATMENTTreatment depends on the severity of the cervical sprain. Mild sprains can be treated with rest, keeping the neck in place (immobilization), and pain medicines. Severe cervical sprains are immediately immobilized. Further treatment is done to help with pain, muscle spasms, and other symptoms and may include:? Medicines, such as pain relievers, numbing medicines, or muscle relaxants. ?? Physical therapy. This may involve stretching exercises, strengthening exercises, and posture training. Exercises and improved posture can help stabilize the neck, strengthen muscles, and help stop symptoms from returning. ?HOME CARE INSTRUCTIONS? Put ice on the injured area. ?? Put ice in a plastic bag. ?? Place a towel between your skin and the bag. ?? Leave the ice on for 15?20 minutes, 3?4 times a day. ?? If your injury was severe, you may have been given a cervical collar to wear. A cervical collar is a two-piece collar designed to keep your neck from moving while it heals.? Do not remove the collar unless instructed by your health care provider. ? If you have long hair, keep it outside of the collar.? Ask your health care provider before making any adjustments to your collar. Minor adjustments may be required over time to improve comfort and reduce pressure on your chin or on the back of your head. ? If?you are allowed to remove the collar for cleaning or bathing, follow your health care provider's instructions on how to do so safely. ? Keep your collar clean by wiping it with mild soap and water and drying it completely. If the collar you have been given includes removable pads, remove them every 1?2 days and hand wash them with soap and water. Allow them to air dry. They should be completely dry before you wear them in the collar.? If you are allowed to remove the collar for cleaning and bathing, wash and dry the skin of your neck. Check your skin for irritation or sores. If you see any, tell your health care provider.? Do not drive while wearing the collar. ?? Only take fanu-hxj-amoumrj or prescription medicines for pain, discomfort, or fever as directed by your health care provider. ?? Keep all follow-up appointments as directed by your health care provider. ?? Keep all physical therapy appointments as directed by your health care provider. ?? Make any needed adjustments to your workstation to promote good posture. ?? Avoid positions and activities that make your symptoms worse. ?? Warm up and stretch before being active to help prevent problems. ? SEEK MEDICAL CARE IF:? Your pain is not controlled with medicine. ?? You are unable to decrease your pain medicine over time as planned. ?? Your activity level is not improving as expected. ?SEEK IMMEDIATE MEDICAL CARE IF:? You develop any bleeding.? You develop stomach upset.? You have signs of an allergic reaction to your medicine. ?? Your symptoms get worse. ?? You develop new, unexplained symptoms. ?? You have numbness, tingling, weakness, or paralysis in any part of your body. ?MAKE SURE YOU:? Understand these instructions. ? Will watch your condition.? Will get help right away if you are not doing well or get worse.Document Released: 02/23/2008 Document Revised: 05/03/2014 Document Reviewed: 11/03/2013ExitCare? Patient Information ?2014 [employer]. This information is not intended to replace advice given to you by your health care provider. Make sure you discuss any questions you have with your health care provider.BENJAMIN Orr JESSICA M , have received the following patient education materials/instructions and have verbalized understanding: Patient Education Materials: Lumbosacral Strain; Cervical Sprain Follow-up Instructions: With: Address: When: [place] [employer] [place] [address] [employer] (1) In 3 days 04/11/2017 Prescriptions: [methocarbamol (Robaxin-750 oral tablet)] [naproxen (naproxen 500 mg Tab)] [tramadol (Ultram 50 mg Tab)] Patient Signature Date Clinician/Nurse Signature Date 04/08/17 01:09:46 Normal [facility] U BetaHcg Qualon 04-08-2017 CHORIOGONADOTROPIN.BET A SUBUNIT:SCNC:PT:URINE: QN: Negative Normal [facility] Comment on above: Performed By: #### 2 [id number] ####[facility] [id number] [place] [id number] XR Spine Cervical 2 or 3 Vie wson 04-08-2017 INR Coag RelTime (Bld) Exam Date/Time:04/08/2017 00:33 ESTReason for Exam:Neck PainReportIMPRESSION: 1. STRAIGHTENING OF C-SPINE MAY BE POSITIONAL OR SECONDARY TO MUSCLE SPASMS IN THENECK.2. OTHERWISE, NEGATIVE CERVICAL SPINE. NO FRACTURE OR DISLOCATION INVOLVING THEC-SPINE.CLINICAL HISTORY: Trauma, injured neck in fall, posterior and right side neck painCOMPARISON: NONE.COMMENT: There is straightening of the cervical spine which may be positional orsecondary to muscle spasms in the neck. The cervical vertebrae appear intact. Thereis no fracture, subluxation or dislocation involving the cervical spine. Cervicaldisc spaces appear well-preserved. There is no osteolytic or osteoblastic lesioninvolving the cervical spine. FINAL REPORT Dictated: 04/08/2017 11:33 am Jaya Sosa MD Signed (Electronic Signature): 04/08/2017 11:33 am Signed by: Jaya Sosa MD Transcribed by: NICKI Technologist: ERMIAS Sol [facility] XR Spine Lumbosacral 2 or 3 Viewson 04-08-2017 XR Spine Lumbosacral 2 or 3 Views Exam Date/Time:04/08/2017 00:33 ESTReason for Exam:Pain, Non TraumaticReportIMPRESSIO N: NEGATIVE LUMBAR SPINE.CLINICAL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 Herlinda RN requested that pcp information stating she needs information for a new physician. I did give patient phone number of doctors to call and setup appt. Normal [facility] Coding Summary.on 01-31-2017 Coding Summary. CODING DATE: 017 FINAL [facility] DSC STATUS: Home (Routine DC) PAYOR: Self Pay APC DESCRIPTION 5023 Level 3 Type A ED Visits ADMIT DX: REASON FOR VISIT DX: M25.512 Pain in left shoulder M54.6 Pain in thoracic spine FINAL DX: PRINCIPAL: S29.012A Strain of muscle and tendon of back wall of thorax, initial encounter SECONDARY: X58.XXXA Exposure to other specified factors, initial encounter Y93.E8 Activity, other personal hygiene PYMT PROC APC STAT DESCRIPTION DOCTOR NAME DATE NOTE: The code number assigned matches the documented diagnosis and / or procedure in the patient's chart. However, the narrative phrase printed from the coding software may appear abbreviated, or result in slightly different terminology. Revised Coded By: Roxana Tuttle Revised Date Saved: 01/31/2017 02:29 pm [facility] ED Note-Physicianon 01-28-20 ED Note-Physician Patient: APPLE JETER Age: 21 years Sex: Female : 1995 Associated Diagnoses: None Author: Chad SINGLETON, Jj Gonzales Basic Information Time seen: Date & time 01/26/17 18:09:00. History source: Patient. Arrival mode: Private vehicle. History limitation: None. Additional information: Chief Complaint from Nursing Triage Note : Chief Complaint 01/26/2017 17:52 EDT Chief Complaint was doing her hair and heard a pop in her left shoulder. had aleve without relief. . History of Present Illness This is a pleasant 21-year-old female presents emergency department complaining of pain to her left upper back. Patient states that she was doing her hair, she reached up and back with her left hand and felt a pop To her thoracic spine in the back. She states that since then she has had sharp pain which is exacerbated by movement. Rest does alleviate the pain. Patient denies any numbness or tingling. No shortness of breath or chest pain. No fever or chills. No neck pain. No skin rashes or lesions. Patient states that is a chance that she is . Review of Systems Complete review of systems otherwise negative unless stated in the HPI Health Status Allergies: Allergic Reactions (Selected)No Known Allergies. Medications: (Selected) PrescriptionsPrescribedB actrim D.S. 800 mg-160 mg Tab: 1 tab(s), Oral, BID, 6 tab(s), Refill(s) 0Phenergan 25 mg Tab: 25 mg = 1 tab(s), Oral, q6hr, PRN Nausea, # 10 tab(s), Refills(s) 0. Past Medical/ Family/ Social History Medical history: ActiveRight Ankle FxResolvedPolycystic ovaries ([id number]): Resolved., Reviewed as documented in chart. Surgical history: Tonsillectomy ([id number])., Reviewed as documented in chart. Family history: , Reviewed as documented in chart. Social history: Social & Psychosocial EloefiFwojexp80/23/2013 Risk Assessment: Denies Alcohol UseSubstance Abuse03/31/2013 Risk Assessment: Denies Substance HuwzjIcrlqyv47/23/2013 Risk Assessment: Medium Risk02/01/2013 Use: Current Type: Fnqvapftep09/20/2013 Use: Current Every Day Smoker Type: Cigarettes Comment: 4-5 cigarettes/day - 03/31/2013 21:15 - KONSTANTIN GANN, MARLEN Gonzales Comment: smokes 10 cigs per day. - 04/16/2015 20:50 - Alison FRANCISCO, Loyda Abbott, Reviewed as documented in chart. Problem list: Active Problems (3)Right Ankle Fx Smoker Tobacco use , per nurse's notes. Physical Examination Vital Signs Vital Signs 01/26/2017 17:52 EDT Temperature Oral 36.8 DegC Peripheral Pulse Rate 86 bpm Respiratory Rate 18 br/min Systolic Blood Pressure 124 mmHg Diastolic Blood Pressure 60 mmHg SpO2 99 % . Basic Oxygen Information 01/26/2017 17:52 EDT SpO2 99 % . General: Alert, no acute distress. Skin: Warm, dry, intact, no pallor, no rash, normal for ethnicity. Head: Normocephalic, atraumatic. Neck: Supple, trachea midline, no tenderness. Eye: Extraocular movements are intact, normal conjunctiva. Ears, nose, mouth and throat: Oral mucosa moist. Cardiovascular: Regular rate and rhythm, No murmur, Normal peripheral perfusion, No edema. Respiratory: Lungs are clear to auscultation, respirations are non-labored, breath sounds are equal, Symmetrical chest wall expansion. Chest wall: Patient has soft tissue tenderness to the left thoracic paraspinals. There is no bony point tenderness. No step-off. No crepitus or erythema. No overlying rash.. Back: Nontender, Normal range of motion. Musculoskeletal: Patient has limited range of motion secondary to pain involving the left arm. Patient states that movement of the arm makes the left upper back hurt. Patient also states that leaning her head forward causes pain. Additionally, during her head from side to side, mostly to the left increases the pain.. Gastrointestinal: Soft, Nontender, Non distended, Normal bowel sounds, No organomegaly. Neurological: Alert and oriented to person, place, time, and situation, No focal neurological deficit observed, CN II-XII intact, normal sensory observed, normal motor observed. Lymphatics: No lymphadenopathy. Psychiatric: Cooperative, appropriate mood & affect, normal judgment. Medical Decision Making Differential Diagnosis: Sprain, strain. Rationale: Isolated muscle strain to left upper back. Documents reviewed: Emergency department nurses' notes. Orders Launch Order Profile (Selected) Inpatient OrdersOrdered (In-Lab)U Beta Hcg Qual: Urine, Stat collect, 01/26/17 18:16:00 EDT, Stop date 01/26/17 18:16:00 EDT, Nurse collect. Results review: Lab results : Lab View 01/26/2017 18:35 EDT U beta hCG Ql Negative . Notes: Patient was educated on conservative therapy for muscle strain. Return and follow-up parameters discussed.This case was discussed with the attending physician regarding diagnosis and disposition.. Reexamination/ Reevaluation Vital signs Basic Oxygen Information 01/26/2017 17:52 EDT SpO2 99 % Impression and Plan Diagnosis Muscle strain of left upper back ([id number] S29.012A, Discharge, Medical) Plan Condition: Stable. Disposition: Discharged: to home. Prescriptions: Launch prescriptions Pharmacy:cyclobenzaprine 10 mg Tab (Prescribe): 10 = 1 mg tab(s), Oral, TID, # 20 tab(s), Refills(s) 0naproxen 375 mg Tab (Prescribe): 375 = 1 mg tab(s), Oral, BID, PRN for pain, # 20 tab(s), Refills(s) 0. Patient was given the following educational materials: Muscle Strain, Bklq-nt-Zuiy. Limitations: Limited activity. Follow up with: KVEIN NEWTON In 3 days 01/29/2017; Moi Be In 7 days 02/02/2017 Follow-up with the orthopedic physician for reevaluation if the pain persists or symptoms do not resolve.The patient was advised to return to the ER immediately if symptoms worsen, problems arise, or any other issues develop. Ensure that you follow up as directed.Apply heat 20 minutes on and off to the affected area 4 times daily.. Counseled: Patient, Family, Regarding diagnosis, Regarding diagnostic results, Regarding treatment plan, Regarding prescription, Patient indicated understanding of instructions. Addendum Chart reviewed and based on data available the care seems appropriate. Normal [facility] Comment on above: Result Comment: Elec tronically Signed By: Jj Bonilla PA-C\.br\Date and Time Signed: 01/26/17 18:56 EDT\.br\Electronically Co-Signed By: Lula Oscar DO\.br\Date and Time Co-Signed: 01/27/17 11:34 EDT ED Clinical Summaryon 2016 ED Clinical Summary (Inserted Image. Anna ble to display) [place] [address] ED Clinical SummaryPerson Information Name: APPLE JETER/Orlando_Michele Age: 21 Years : 1995 12:00 AM Sex: Female Language:British PCP: NONE, [place] Marital Status:Single Visit Id: Visit Reason:Shoulder pain-swelling; SHOULDER/BACK PAIN Speciality: Acuity: 4 Enc Type: Emergency Med Service: Emergency Arrival:01/26/2017 5:45 PM Discharge: 01/26/2017 7:09 PM LOS: 000 01:24 Checkin:01/26/2017 5:45 PM Checkout: 01/26/2017 7:09 PM Dispo Type: Home (Routine DC) EVENTS:Event Name Event Status Request Date/Time Start Date/Time Complete Date/Time Arrive Complete 01/26/2017 5:45 PM 01/26/2017 5:45 PM 01/26/2017 5:45 PM Document Home Meds Request 01/26/2017 5:45 PM Triage Complete 01/26/2017 5:45 PM 01/26/2017 6:01 PM 01/26/2017 6:01 PM Registration Complete 01/26/2017 5:48 PM 01/26/2017 5:48 PM 01/26/2017 5:48 PM Reg Complete Request 01/26/2017 5:48 PM Reg Bed Request Complete 01/26/2017 5:48 PM 01/26/2017 5:48 PM 01/26/2017 5:48 PM Bed Assign Complete 01/26/2017 6:00 PM 01/26/2017 6:00 PM 01/26/2017 6:[address] Exam Complete 01/26/2017 6:00 PM 01/26/2017 6:10 PM 01/26/2017 6:10 PM RN Exam Complete 01/26/2017 6:00 PM 01/26/2017 6:28 PM 01/26/2017 6:28 PM Registration Request 01/26/2017 6:10 PM Pending Labs Complete 01/26/2017 6:16 PM 01/26/2017 6:45 PM Lab Complete 01/26/2017 6:16 PM 01/26/2017 6:45 PM Urine Collect Complete 01/26/2017 6:16 PM 01/26/2017 6:[address] Exam Complete 01/26/2017 6:32 PM 01/26/2017 6:32 PM 01/26/2017 6:32 PM Meds Admin Complete 01/26/2017 6:55 PM 01/26/2017 6:59 PM Discharge Complete 01/26/2017 6:56 PM 01/26/2017 7:09 PM 01/26/2017 7:09 PM Transfer Complete 01/26/2017 7:09 PM 01/26/2017 7:09 PM 01/26/2017 7:09 PM ADDRESS:[address] [place] [address] PHYS DOC NOTES: MEDICAL INFORMATION: Prescriptions Given:Prescription Display cyclobenzaprine (cyclobenzaprine 10 mg Tab) 10 mg = 1 tab(s), Oral, TID, # 20 tab(s), Refills(s) 0 naproxen (naproxen 375 mg Tab) 375 mg = 1 tab(s), Oral, BID, PRN for pain, # 20 tab(s), Refills(s) 0 PATIENT EDUCATION INFORMATION: Instructions:Muscle Strain, Afjj-sw-Eexe Follow up:With: Address: When: Moi [address] [place], [place] [id number] Business (7) In 7 days 02/02/2017 Comments: Follow-up with the orthopedic physician for reevaluation if the pain persists or symptoms do not resolve.The patient was advised to return to the ER immediately if symptoms worsen, problems arise, or any other issues develop. Ensure that you follow up as directed. Apply heat 20 minutes on and off to the affected area 4 times daily. With: Address: When: [place] , [place] In 3 days DIAGNOSIS:Muscle strain of left upper back Normal [facility] ED Patient Education Noteon 01-26-2017 ED Patient Education Note Patient Education Materials Follows:to-ReadMuscle StrainA muscle strain (pulled muscle) happens when a muscle is stretched beyond normal length. It happens when a sudden, violent force stretches your muscle too far. Usually, a few of the fibers in your muscle are torn. Muscle strain is common in athletes. Recovery usually takes 1?2 weeks. Complete healing takes 5?6 weeks. HOME CARE? Follow the ROLDAN method of treatment to help your injury get better. Do this the first 2?3 days after the injury:? Protect. Protect the muscle to keep it from getting injured again.? Rest. Limit your activity and rest the injured body part.? Ice. Put ice in a plastic bag. Place a towel between your skin and the bag. Then, apply the ice and leave it on from 15?20 minutes each hour. After the third day, switch to moist heat packs. ? Compression. Use a splint or elastic bandage on the injured area for comfort. Do not put it on too tightly.? Elevate. Keep the injured body part above the level of your heart. ? Only take medicine as told by your doctor.? Warm up before doing exercise to prevent future muscle strains.GET HELP IF:? You have more pain or puffiness (swelling) in the injured area.? You feel numbness, tingling, or notice a loss of strength in the injured area. MAKE SURE YOU:? Understand these instructions. ? Will watch your condition.? Will get help right away if you are not doing well or get worse.Document Released: 02/04/2009 Document Revised: 02/16/2014 Document Reviewed: 11/25/2013ExitCare? Patient Information ?2014 99dresses. This information is not intended to replace advice given to you by your health care provider. Make sure you discuss any questions you have with your health care provider. Normal [facility] ED Patient Summaryon 017 ED Patient Summary (Inserted Image. Anna ble to display) [address] [address] Patient Discharge Instructions Person Information Name: APPLE JETER Age: 21 Years Date: 01/26/2017 5:45 PMDischarge Diagnosis: Muscle strain of left upper back Primary Care Physician: NONE, [place] Provider InformationPrimary Provider: Raul Oscar DO Blunger:Christopher The exam and treatment you received in the Emergency Department were for an urgent problem and are not intended as complete care. It is important that you follow up with a doctor, nurse practitioner, or physician?s painter assistant for ongoing care. If your symptoms become worse or you do not improve as expected and you are unable to reach your usual health care provider, you should return to the Emergency Department. We are available 24 hours a day. APPLE JETER has been given the following list of patient education materials, prescriptions and follow-up instructions: Follow-up Instructions:With: Address: When: Moi Haile [address] [place] [address] Business (1) In 7 days 02/02/2017 Comments: Follow-up with the orthopedic physician for reevaluation if the pain persists or symptoms do not resolve.The patient was advised to return to the ER immediately if symptoms worsen, problems arise, or any other issues develop. Ensure that you follow up as directed. Apply heat 20 minutes on and off to the affected area 4 times daily. With: Address: When: [place] , [place] In 3 days In the event that this physician does not participate in your insurance network, please consult with your insurance company to find a nearby participating provider. Patient Education Materials:Muscle Strain, Jnnx-tq-Bqll Medications Given:Medication Dose Route naproxen 375.00 mg Oral cyclobenzaprine 10.00 mg Oral Medication Information:New MedicationsPrinted Prescriptionscyclobenzap rine (cyclobenzaprine 10 mg Tab) 1 Tabs By Mouth 3 times a day. Refills: 0.naproxen (naproxen 375 mg Tab) 1 Tabs By Mouth 2 times a day as needed for pain. Refills: 0.Medications to Continue with No ChangesOther Medicationspromethazine (Phenergan 25 mg Tab) 1 Tabs By Mouth every 6 hours as needed Nausea. Refills: 0.sulfamethoxazole-trime thoprim (Bactrim D.S. 800 mg-160 mg Tab) 1 Tabs By Mouth 2 times a day. Refills: 0.Comment: Pharmacy Information: Thank you for choosing [facility] Education Materials: Muscle StrainA muscle strain (pulled muscle) happens when a muscle is stretched beyond normal length. It happens when a sudden, violent force stretches your muscle too far. Usually, a few of the fibers in your muscle are torn. Muscle strain is common in athletes. Recovery usually takes 1?2 weeks. Complete healing takes 5?6 weeks. HOME CARE? Follow the ROLDAN method of treatment to help your injury get better. Do this the first 2?3 days after the injury:? Protect. Protect the muscle to keep it from getting injured again.? Rest. Limit your activity and rest the injured body part.? Ice. Put ice in a plastic bag. Place a towel between your skin and the bag. Then, apply the ice and leave it on from 15?20 minutes each hour. After the third day, switch to moist heat packs. ? Compression. Use a splint or elastic bandage on the injured area for comfort. Do not put it on too tightly.? Elevate. Keep the injured body part above the level of your heart. ? Only take medicine as told by your doctor.? Warm up before doing exercise to prevent future muscle strains.GET HELP IF:? You have more pain or puffiness (swelling) in the injured area.? You feel numbness, tingling, or notice a loss of strength in the injured area. MAKE SURE YOU:? Understand these instructions. ? Will watch your condition.? Will get help right away if you are not doing well or get worse.Document Released: 02/04/2009 Document Revised: 02/16/2014 Document Reviewed: 11/25/2013ExitCare? Patient Information ?2015 99dresses. This information is not intended to replace advice given to you by your health care provider. Make sure you discuss any questions you have with your health care provider.BENJAMIN Orr JESSICA M , have received the following patient education materials/instructions and have verbalized understanding: Patient Education Materials: Muscle Strain, Ieel-in-Ezyf Follow-up Instructions: With: Address: When: [place] [address] [place] (1) In 7 days 02/02/2017 Comments: Follow-up with the orthopedic physician for reevaluation if the pain persists or symptoms do not resolve.The patient was advised to return to the ER immediately if symptoms worsen, problems arise, or any other issues develop. Ensure that you follow up as directed. Apply heat 20 minutes on and off to the affected area 4 times daily. With: Address: When: XXXX NONE , [place] In 3 days Prescriptions: [cyclobenzaprine (cyclobenzaprine 10 mg Tab)] [naproxen (naproxen 375 mg Tab)] Patient Signature Date Clinician/Nurse Signature Date 01/26/17 19:09:13 Normal [facility] U BetaHcg [place] 01-26-2017 CHORIOGONADOTROPIN.BET A SUBUNIT:SCNC:PT:URINE: QN: Negative [facility] [place] Comment on above: Performed By: #### [id number] ####[facility] [id number] [place] [address] Vital Signs Date Time Vital Sign Value Performing Clinician Facility 12-24-2024 17:28-0400 Body height 167.64 cm No Primary Care Physician [facility] 12-24-2024 17:28-0400 Body mass index (BMI) [Ratio] 44 kg/m2 No Primary Care Physician [facility] 12-24-2024 17:28-0400 Body temperature 97.2 [degF] No Primary Care Physician [facility] 12-24-2024 17:28-0400 Body weight 123.83 kg No Primary Care Physician [facility] 12-24-2024 17:28-0400 Diastolic blood pressure 77 mm[Hg] No Primary Care Physician [facility] 12-24-2024 17:28-0400 Heart rate 95 /min No Primary Care Physician [facility] 12-24-2024 17:28-0400 Respiratory rate 18 /min No Primary Care Physician [facility] 12-24-2024 17:28-0400 SaO2% (BldA) [Mass fraction] 96 % No Primary Care Physician [facility] 12-24-2024 17:28-0400 Systolic blood pressure 125 mm[Hg] No Primary Care Physician [facility] 12-23-2024 19:29-0400 Body mass index (BMI) [Ratio] 42.7 kg/m2 Yo Medina MD Work Phone: [place] [id number] 19:29-0400 Body temperature 98.8 [degF] Yo Medina MD Work Phone: [facility] 12-23-2024 19:29-0400 Body weight 120 kg Yo Medina MD Work Phone: [facility] 12-23-2024 19:29-0400 Diastolic blood pressure 64 mm[Hg] Yo Medina MD Work Phone: [facility] 12-23-2024 19:29-0400 Heart rate 104 /min Yo Medina MD Work Phone: [facility] 12-23-2024 19:29-0400 Respiratory rate 22 /min Yo Medina MD Work Phone: [facility] 12-23-2024 19:29-0400 SaO2% (BldA) [Mass fraction] 98 % Yo Medina MD Work Phone: [facility] 12-23-2024 19:29-0400 Systolic blood pressure 111 mm[Hg] Yo Medina MD Work Phone: [facility] 09-05-2023 13:06-0400 Body temperature 97.3 [degF] [facility] 09-05-2023 13:06-0400 Diastolic blood pressure 77 mm[Hg] [facility] 09-05-2023 13:06-0400 Heart rate 80 /min [facility] 09-05-2023 13:06-0400 Respiratory rate 16 /min [facility] 09-05-2023 13:06-0400 SaO2% (BldA) [Mass fraction] 98 % [facility] 09-05-2023 13:06-0400 Systolic blood pressure 129 mm[Hg] [facility] 09-05-2023 11:37-0400 Body height 167.64 cm [facility] 06-30-2023 22:32-0500 Body temperature 97.3 [degF] [facility] 06-30-2023 22:32-0500 Diastolic blood pressure 90 mm[Hg] [facility] 06-30-2023 22:32-0500 Heart rate 84 /min [facility] 06-30-2023 22:32-0500 Respiratory rate 18 /min [facility] 06-30-2023 22:32-0500 SaO2% (BldA) [Mass fraction] 98 % [facility] 06-30-2023 22:32-0500 Systolic blood pressure 120 mm[Hg] [facility] 06-30-2023 21:47-0500 Body height 167.64 cm [facility] 06-30-2023 21:47-0500 Body mass index (BMI) [Ratio] 43 kg/m2 [facility] 06-30-2023 21:47-0500 Body weight 121.1 kg [facility] 06-11-2023 15:43-0500 Respiratory rate 17 /min [facility] 06-11-2023 15:43-0500 SaO2% (BldA) [Mass fraction] 99 % [facility] 06-11-2023 12:43-0500 Body height 167.64 cm [facility] 06-11-2023 12:43-0500 Body mass index (BMI) [Ratio] 43.1 kg/m2 [facility] 06-11-2023 12:43-0500 Body temperature 100.6 [degF] [facility] 06-11-2023 12:43-0500 Body weight 121.19 kg [facility] 06-11-2023 12:43-0500 Diastolic blood pressure 77 mm[Hg] [facility] 06-11-2023 12:43-0500 Heart rate 124 /min [facility] 06-11-2023 12:43-0500 Systolic blood pressure 134 mm[Hg] [facility] 05-02-2023 11:56-0500 Heart rate 89 /min [facility] 05-02-2023 11:56-0500 Respiratory rate 18 /min [facility] 05-02-2023 11:56-0500 SaO2% (BldA) [Mass fraction] 98 % [facility] 05-02-2023 10:13-0500 Body height 167.64 cm [facility] 05-02-2023 10:13-0500 Body mass index (BMI) [Ratio] 42.8 kg/m2 [facility] 05-02-2023 10:13-0500 Body temperature 96 [degF] [facility] 05-02-2023 10:13-0500 Body weight 120.51 kg [facility] 05-02-2023 10:13-0500 Diastolic blood pressure 86 mm[Hg] [facility] 05-02-2023 10:13-0500 Systolic blood pressure 144 mm[Hg] [facility] 04-27-2023 06:48-0500 Body height 167.64 cm [facility] 04-27-2023 06:48-0500 Body mass index (BMI) [Ratio] 42.6 kg/m2 [facility] 04-27-2023 06:48-0500 Body temperature 100.8 [degF] [facility] 04-27-2023 06:48-0500 Body weight 119.9 kg [facility] 04-27-2023 06:48-0500 Diastolic blood pressure 59 mm[Hg] [facility] 04-27-2023 06:48-0500 Heart rate 110 /min [facility] 04-27-2023 06:48-0500 Respiratory rate 19 /min [facility] 04-27-2023 06:48-0500 SaO2% (BldA) [Mass fraction] 98 % [facility] 04-27-2023 06:48-0500 Systolic blood pressure 107 mm[Hg] [facility] 04-19-2023 10:29-0500 Body temperature 98.91 [degF] En Aly APRN.JEWELRY SALES REPRESENTATIVE Work Phone: [facility] 04-19-2023 10:29-0500 Body weight 118.39 kg En Aly APRN.JEWELRY SALES REPRESENTATIVE Work Phone: [facility] 04-19-2023 10:29-0500 Diastolic blood pressure 98 mm[Hg] En Aly APRN.JEWELRY SALES REPRESENTATIVE Work Phone: [facility] 04-19-2023 10:29-0500 Heart rate 88 /min En Sheeba PHARMACEUTICAL PROCESS ENGINEER.JEWELRY SALES REPRESENTATIVE Work Phone: [facility] 04-19-2023 10:29-0500 Respiratory rate 16 /min En Romotrista PHARMACEUTICAL PROCESS ENGINEER.JEWELRY SALES REPRESENTATIVE Work Phone: [facility] 04-19-2023 10:29-0500 SaO2% (BldA) [Mass fraction] 98 % En Sheeba PHARMACEUTICAL PROCESS ENGINEER.JEWELRY SALES REPRESENTATIVE Work Phone: [facility] 04-19-2023 10:29-0500 Systolic blood pressure 140 mm[Hg] En Sheeba PHARMACEUTICAL PROCESS ENGINEER.JEWELRY SALES REPRESENTATIVE Work Phone: [facility] 04-08-2023 18:43-0500 Respiratory rate 14 /min [facility] 04-08-2023 17:16-0500 Body height 167.64 cm [facility] 04-08-2023 17:16-0500 Body mass index (BMI) [Ratio] 42.5 kg/m2 [facility] 04-08-2023 17:16-0500 Body temperature 97.1 [degF] [facility] 04-08-2023 17:16-0500 Body weight 119.7 kg [facility] 04-08-2023 17:16-0500 Diastolic blood pressure 74 mm[Hg] [facility] 04-08-2023 17:16-0500 Heart rate 94 /min [facility] 04-08-2023 17:16-0500 SaO2% (BldA) [Mass fraction] 98 % [facility] 04-08-2023 17:16-0500 Systolic blood pressure 141 mm[Hg] [facility] 03-07-2023 12:17-0400 Body temperature 98.29 [degF] Tracey Agarwal APRN.JEWELRY SALES REPRESENTATIVE Work Phone: [facility] 03-07-2023 12:17-0400 Body weight 113.76 kg Tracey Agarwal APRN.JEWELRY SALES REPRESENTATIVE Work Phone: [facility] 03-07-2023 12:17-0400 Diastolic blood pressure 67 mm[Hg] Tracey Agarwal PHARMACEUTICAL PROCESS ENGINEER.JEWELRY SALES REPRESENTATIVE Work Phone: [facility] 03-07-2023 12:17-0400 Heart rate 87 /min Tracey Agarwal PHARMACEUTICAL PROCESS ENGINEER.JEWELRY SALES REPRESENTATIVE Work Phone: [facility] 03-07-2023 12:17-0400 Respiratory rate 18 /min Tracey Martinezer PHARMACEUTICAL PROCESS ENGINEER.JEWELRY SALES REPRESENTATIVE Work Phone: [facility] 03-07-2023 12:17-0400 SaO2% (BldA) [Mass fraction] 98 % Tracey Agarwal PHARMACEUTICAL PROCESS ENGINEER.JEWELRY SALES REPRESENTATIVE Work Phone: [facility] 03-07-2023 12:17-0400 Systolic blood pressure 114 mm[Hg] Tracey Martinezer PHARMACEUTICAL PROCESS ENGINEER.JEWELRY SALES REPRESENTATIVE Work Phone: [facility] 11-06-2022 15:35-0400 Respiratory rate 18 /min [facility] 11-06-2022 14:53-0400 Body mass index (BMI) [Ratio] 37.9 kg/m2 [facility] 11-06-2022 14:53-0400 Body weight 106.59 kg [facility] 11-06-2022 14:39-0400 Body height 167.64 cm [facility] 11-06-2022 14:39-0400 Body temperature 97.4 [degF] [facility] 11-06-2022 14:39-0400 Diastolic blood pressure 88 mm[Hg] [facility] 11-06-2022 14:39-0400 Heart rate 93 /min [facility] 11-06-2022 14:39-0400 SaO2% (BldA) [Mass fraction] 100 % [facility] 11-06-2022 14:39-0400 Systolic blood pressure 135 mm[Hg] [facility] 10-10-2022 17:49-0400 Body temperature 98.1 [degF] En Aly PHARMACEUTICAL PROCESS ENGINEER.JEWELRY SALES REPRESENTATIVE Work Phone: [facility] 10-10-2022 17:49-0400 Body weight 102.88 kg En Aly PHARMACEUTICAL PROCESS ENGINEER.JEWELRY SALES REPRESENTATIVE Work Phone: [facility] 10-10-2022 17:49-0400 Diastolic blood pressure 78 mm[Hg] [facility] PHARMACEUTICAL PROCESS ENGINEER.JEWELRY SALES REPRESENTATIVE Work Phone: [facility] 10-10-2022 17:49-0400 Heart rate 88 /min En [facility] PHARMACEUTICAL PROCESS ENGINEER.JEWELRY SALES REPRESENTATIVE Work Phone: [facility] 10-10-2022 17:49-0400 Respiratory rate 18 /min Enliz [facility] PHARMACEUTICAL PROCESS ENGINEER.JEWELRY SALES REPRESENTATIVE Work Phone: [facility] 10-10-2022 17:49-0400 SaO2% (BldA) [Mass fraction] 97 % En [facility] PHARMACEUTICAL PROCESS ENGINEER.JEWELRY SALES REPRESENTATIVE Work Phone: [facility] 10-10-2022 17:49-0400 Systolic blood pressure 122 mm[Hg] En [facility] PHARMACEUTICAL PROCESS ENGINEER.JEWELRY SALES REPRESENTATIVE Work Phone: [facility] Encounters Encounter Date Encounter Type Care Provider Facility Start: 12-24-2024 End: 12-24-2024 Emergency department patient visit No Primary Care Physician -Emergency Department Work Phone: Start: 12-23-2024 End: 12-23-2024 Office outpatient visit 25 minutes Yo Medina MD Work Phone: [facility] Comment on above: Acute conjunctivitis of both eyes, unspecified acute conjunctivitis type (Primary Dx) Start: 11-02-2024 End: 11-03-2024 Emergency department patient visit SHERRY ACOSTA MD [facility] Start: 06-10-2024 Emergency department patient visit Facility:[id number] Start: 09-05-2023 End: 09-05-2023 Emergency department patient visit Brian Michelle Facility:[facility] Start: 09-05-2023 End: 09-05-2023 Emergency department patient visit [facility] Work Phone: Start: 06-30-2023 End: 07-01-2023 Emergency department patient visit Kehinde Mcdaniels Facility:[facility] Start: 06-30-2023 End: 06-30-2023 Emergency department patient visit [facility] Work Phone: Start: 06-11-2023 End: 06-11-2023 Emergency department patient visit Juan Ferreira Facility:[facility] Start: 06-11-2023 End: 06-11-2023 Emergency department patient visit [facility] Work Phone: Start: 05-02-2023 End: 05-02-2023 Emergency department patient visit [facility] Facility:[facility] Start: 05-02-2023 End: 05-02-2023 Emergency department patient visit [facility] Work Phone: Start: 04-27-2023 End: 04-27-2023 Emergency department patient visit [facility] Facility:[facility] Start: 04-27-2023 End: 04-27-2023 Emergency department patient visit [facility] Work Phone: Start: 04-20-2023 Telephone encounter En pool APRN.JEWELRY SALES REPRESENTATIVE Work Phone: [facility] Comment on above: Results Start: 04-19-2023 End: 04-19-2023 ambulatory SELF Facility:[facility] Start: 04-19-2023 End: 04-19-2023 Office outpatient visit 25 minutes En Aly PHARMACEUTICAL PROCESS ENGINEER.JEWELRY SALES REPRESENTATIVE Work Phone: [facility] Comment on above: Acute midline low ba ck pain without sciatica (Primary Dx); Screening for STD (sexually transmitted disease); Acute cystitis without hematuria Start: 04-08-2023 End: 04-08-2023 Emergency department patient visit [facility] Facility:[facility] Start: 04-08-2023 End: 04-08-2023 Emergency department patient visit [facility] Work Phone: Start: 03-07-2023 End: 03-07-2023 ambulatory TRACEY AGARWAL Facility:[facility] Start: 03-07-2023 End: 03-07-2023 Subsequent hospital visit by physician Xr [facility] Work Phone: Radiology Comment on above: Wrist pain, acute, r ight [M25.531] Start: 03-07-2023 End: 03-07-2023 Patient encounter procedure Tracey Agarwal APRN.JEWELRY SALES REPRESENTATIVE Work Phone: [facility] Comment on above: Wrist pain, acute, r ight (Primary Dx) Start: 11-06-2022 End: 11-06-2022 Emergency department patient visit Gaurav Osuna Facility:[facility] Start: 11-06-2022 End: 11-06-2022 Emergency department patient visit [facility] Work Phone: Start: 10-10-2022 End: 10-10-2022 ambulatory Facility:[facility] Start: 10-10-2022 End: 10-10-2022 Office outpatient visit 15 minutes En Aly APRN.JEWELRY SALES REPRESENTATIVE Work Phone: [facility] Comment on above: Laceration of right hand without foreign body, initial encounter (Primary Dx) Start: 11-06-2021 End: 11-06-2021 ambulatory WESLEY GARSIA [facility] Start: 05-16-2017 End: 06-04-2017 Ambulatory Mynor Leigh Facility:[facility] Start: 05-16-2017 End: 05-20-2017 Emergency department patient visit None Provider Facility:[facility] Start: 04-19-2017 End: 04-19-2017 Emergency department patient visit Shen May [facility] Start: 04-08-2017 End: 04-08-2017 Emergency department patient visit Jaki Coreaabhishek [facility] Start: 03-11-2017 End: 03-11-2017 Emergency department patient visit XXXX NONE Facility[facility] Start: 01-26-2017 End: 01-26-2017 Emergency department patient visit Lula Oscar Facility:[facility] Procedures Date Procedure Procedure Detail Performing Clinician Start: 09-05-2023 Plain X-ray of shoulder Start: 06-30-2023 Plain X-ray of tibia and fibula Start: 06-11-2023 SARS-CoV-2, Influenz a & RSV (PCR) Start: 05-02-2023 Plain chest X-ray Start: 04-27-2023 SARS-CoV-2 & FLU Ant igen (Rapid) Start: 04-27-2023 Viral antigen assay Start: 04-19-2023 Urnls dip stick/tabl et rgnt auto w/o microscopy [facility] Provider Start: 04-08-2023 X-ray of both feet Start: 03-07-2023 Radex wrist complete minimum 3 views Tracey Agarwal APRN.CNP Work Phone: Plan of Treatment Date Care Activity Detail Author Start: 12-04-2029 Urine microalbumin profile [facility] Start: 01-10-2025 Influenza vaccination Influenza Vacc ine (#1) [facility] Start: 12-24-2024 End: 12-24-2024 [facility] Start: 01-11-2024 Covid-19 Vaccine ( season) Covid-19 Vaccine ( season) [facility] Start: 01-11-2024 Influenza vaccination Influenza Vacc ine (#1) [facility] Start: 06-30-2023 [facility] Start: 06-30-2023 Plain X-ray of tibia and fibula Tibia & Fibula 2 Views [facility] Start: 06-30-2023 XR Tibia and Fibula 2 Views [facility] Start: 06-11-2023 [facility] Start: 06-11-2023 End: 06-11-2023 [facility] Start: 05-02-2023 [facility] Start: 05-02-2023 Plain chest X-ray Chest PA and Later al [facility] Start: 05-02-2023 XR Chest PA and Lateral [facility] Start: 04-27-2023 [facility] Start: 04-19-2023 End: 07-19-2023 Bacteria identified in Urine by Culture URINE CULTURE Microbiology Routine Acute midline low back pain without sciatica Expected: 04/19/2023, Expires: 07/19/2023 [facility] Work Phone: Comment on above: Expected: 04/19/2023 , Expires: 07/19/2023 Start: 04-08-2023 [facility] Start: 01-10-2023 Influenza vaccination [facility] Start: 05-12-2022 DEPRESSION ASSESSMENT DEPRESSION ASS ESSMENT [facility] Start: 08-09-2016 PAP TESTING PAP TESTING [facility] Start: 08-09-2016 Screening for malign ant neoplasm of cervix Cervical Cancer Screening [facility] Start: 08-09-2014 Pneumococcal vaccination Pneumococcal Vaccine (1 of 2 - PCV) [facility] Start: 08-09-2013 Anxiety Screening Anxiety Screening [facility] Start: 08-09-2013 Depression Screening Depression Scre ening [facility] Start: 08-09-2013 HEPATITIS C SCREENING HEPATITIS C [facility] Start: 08-09-2013 Hepatitis C screening Hepatitis C [facility] Start: 08-09-2013 HIV SCREENING HIV SCREENING [facility] Start: 08-09-2013 HIV screening HIV Screening [facility] Start: 08-09-2001 PNEUMOCOCCAL (1 - PCV) PNEUMOCOCCAL (1 - PCV) [facility] Start: 08-09-2001 Pneumococcal vaccination [facility] Start: 02-09-1996 COVID-19 VACCINE (#1) COVID-19 VACCI NE (#1) [facility] Chlamydia trachomatis+Neisseria gonorrhoeae DNA [Presence] in Unspecified specimen by MARSHA with probe detection GONORRHEA/CHLAMYDIA NAAT Lab Routine Screening for STD (sexually transmitted disease) Ordered: 04/19/2023 [facility] Work Phone: Comment on above: Ordered: 04/19/2023 Patient Education [facility] Work Phone: Patient referral [facility] Work Phone: UA DIP, URINE (POC) UA DIP, URIN E (POC) Lab Routine Acute midline low back pain without sciatica Ordered: 04/19/2023 [facility] Work Phone: Comment on above: Ordered: 04/19/2023 Immunizations Immunization Date Immunization Notes Care Provider Jazz bro 12-05-2019 tetanus toxoid, redu stacia diphtheria toxoid, and acellular pertussis vaccine, adsorbed En Aly APRN.JEWELRY SALES REPRESENTATIVE Work Phone: [facility] 03-01-2010 influenza, seasonal, injectable, preservative free En Aly PHARMACEUTICAL PROCESS ENGINEER.JEWELRY SALES REPRESENTATIVE Work Phone: [facility] 03-01-2010 influenza virus vacc ine, unspecified formulation Tracey Agarwal PHARMACEUTICAL PROCESS ENGINEER.JEWELRY SALES REPRESENTATIVE Work Phone: [facility] 03-22-2008 human papilloma viru s vaccine, quadrivalent Enliz [facility] PHARMACEUTICAL PROCESS ENGINEER.JEWELRY SALES REPRESENTATIVE Work Phone: [facility] 03-22-2008 meningococcal polysaccharide (groups A, C, Y and W-135) diphtheria toxoid conjugate vaccine (MCV4P) [facility] PHARMACEUTICAL PROCESS ENGINEER.JEWELRY SALES REPRESENTATIVE Work Phone: [facility] 11-16-2007 human papilloma viru s vaccine, quadrivalent En [facility] PHARMACEUTICAL PROCESS ENGINEER.JEWELRY SALES REPRESENTATIVE Work Phone: [facility] 07-23-2007 human papilloma viru s vaccine, quadrivalent [facility] PHARMACEUTICAL PROCESS ENGINEER.JEWELRY SALES REPRESENTATIVE Work Phone: [facility] 07-23-2007 tetanus toxoid, redu stacia diphtheria toxoid, and acellular pertussis vaccine, adsorbed [facility] PHARMACEUTICAL PROCESS ENGINEER.JEWELRY SALES REPRESENTATIVE Work Phone: [facility] 12-01-2000 diphtheria, tetanus toxoids and acellular pertussis vaccine, unspecified formulation [facility] PHARMACEUTICAL PROCESS ENGINEER.JEWELRY SALES REPRESENTATIVE Work Phone: [facility] 12-01-2000 measles, mumps and rubella virus vaccine [facility] PHARMACEUTICAL PROCESS ENGINEER.JEWELRY SALES REPRESENTATIVE Work Phone: [facility] 12-01-2000 poliovirus vaccine, inactivated En [facility] PHARMACEUTICAL PROCESS ENGINEER.JEWELRY SALES REPRESENTATIVE Work Phone: [facility] 06-01-1997 diphtheria, tetanus toxoids and acellular pertussis vaccine, unspecified formulation [facility] PHARMACEUTICAL PROCESS ENGINEER.JEWELRY SALES REPRESENTATIVE Work Phone: [facility] 08-25-1996 haemophilus influenz ae type b vaccine, conjugate unspecified formulation [facility] PHARMACEUTICAL PROCESS ENGINEER.JEWELRY SALES REPRESENTATIVE Work Phone: [facility] 08-25-1996 measles, mumps and rubella virus vaccine [facility] PHARMACEUTICAL PROCESS ENGINEER.JEWELRY SALES REPRESENTATIVE Work Phone: [facility] 04-15-1996 DTP-Haemophilus influenzae type b conjugate vaccine En [place] PHARMACEUTICAL PROCESS ENGINEER.JEWELRY SALES REPRESENTATIVE Work Phone: [facility] 04-15-1996 hepatitis B vaccine, pediatric or pediatric/adolescent dosage En [facility] PHARMACEUTICAL PROCESS ENGINEER.JEWELRY SALES REPRESENTATIVE Work Phone: [facility] 04-15-1996 poliovirus vaccine, unspecified formulation En [place] PHARMACEUTICAL PROCESS ENGINEER.JEWELRY SALES REPRESENTATIVE Work Phone: [facility] 1995 DTP-Haemophilus influenzae type b conjugate vaccine En [place] PHARMACEUTICAL PROCESS ENGINEER.JEWELRY SALES REPRESENTATIVE Work Phone: [facility] 1995 poliovirus vaccine, unspecified formulation En [place] PHARMACEUTICAL PROCESS ENGINEER.JEWELRY SALES REPRESENTATIVE Work Phone: [facility] 1995 DTP-Haemophilus influenzae type b conjugate vaccine En [place] PHARMACEUTICAL PROCESS ENGINEER.JEWELRY SALES REPRESENTATIVE Work Phone: [facility] 1995 hepatitis B vaccine, pediatric or pediatric/adolescent dosage En [place] PHARMACEUTICAL PROCESS ENGINEER.JEWELRY SALES REPRESENTATIVE Work Phone: [facility] 1995 poliovirus vaccine, unspecified formulation En [place] PHARMACEUTICAL PROCESS ENGINEER.JEWELRY SALES REPRESENTATIVE Work Phone: [facility] 1995 hepatitis B vaccine, pediatric or pediatric/adolescent dosage Ne [facility] PHARMACEUTICAL PROCESS ENGINEER.JEWELRY SALES REPRESENTATIVE Work Phone: [facility] Payers Date Payer Category Payer [facility] [id number] 2022 Medicaid [id number] 2022 Medicaid PENDING 2022 Private Health Insurance [id number] 2022 Private Health Insurance [employer] MEDICAID [facility] [id number] 2022-Present [address] [address] [place] [address] Medicaid [id number] 2017 Self-pay 2017 Unknown [id number] 1995 Unknown [id number] 27 Unknown [id number] 62 Unknown [id number] 62 Unknown [id number] 62 Unknown [id number] 62 Unknown [id number] 62 Unknown [id number] 62 Unknown [id number] 62 Social History Date Type Detail Facility Start: 10-10-2022 Tobacco smoking status UTIS Occasional tobacco smoker [facility] Start: 10-10-2022 Tobacco use and exposure Smokeless tobacco non-user [facility] Start: 10-10-2022 End: 12-23-2024 Alcohol intake Lifetime non-drinker (finding) [facility] Start: 1995 Sex Assigned At Not on file [facility] Start: 11-06-2022 End: 12-24-2024 Tobacco smoking status [facility] Unknown if ever smoked [facility] Start: 06-09-2019 None [facility] Start: 06-09-2019 Alone [facility] Start: 1995 Sex Assigned At Female [facility] Start: 04-19-2020 End: 03-07-2023 History of Social function [facility] Start: 04-19-2020 End: 03-07-2023 Tobacco use panel [facility] Start: 11-25-2014 National Score (1-100), lower number is lower risk Not on file [facility] Tobacco smoking status [facility] Start: 11-02-2024 Sex Female (finding) [facility] NEGATED: Highlighted row [facility] Goals Date Patient Goal Desired Activity /State Mental Status Date Assessment Result Facility 06-11-2023 Cognitive function Level Of Cons ciousness Awake;Alert;Appropriate;Follow s Commands [facility] Work Phone: 04-27-2023 Cognitive function Level Of Cons ciousness Awake;Alert;Appropriate;Follow s Commands [facility] Work Phone: Clinical Notes 10-10-2022 to 12-24-2024 Note Date & Type Note Facility 12-24-2024 Discharge summary [facility] 12-24-2024 Discharge summary Note Date/Time December 24, 2024 7:51pm [facility] Medical Records Department [address] [place] [address] Emergency Department Summary 12/24/24 MR#: [id number] Acct: [id number] Name: APPLE JETER Rep #:[id number] : 1995 29 From: Alma ULRICH PCP: Care Physician,No Primary Status :REG ER Location: ED ADDENDUM by MOJGAN Negrete on 12/24/24 at 1950 Patient was upset she was not getting an antibiotic but I explained she has a viral illness and it isn't needed. She called the nurse a long haired bitch and then left. 12/24/241950<Electronically signed by Alma ULRICH> Cosigner Signature (if applicable): 12/24/241942 <Electronically signed by Moises GARSIA> cc: No Primary Care Physician ~* Signed HPI <MOJGAN Negrete - Last Filed: 12/24/24 19:39> History of Present Illness Chief Complaint: Sore Throat Narrative Narrative: 29-year-old female with history of PCOS, PTSD presents with 6 days of bilateral eye drainage, runny nose, sneezing, hoarse voice, sore throat and cough. She states her eyes are draining green gunk. She went to urgent care 2 days ago andwas given a prescription eyedrop but is concerned is not working and that she needs an antibiotic. She denies fever or chills. She tried Mucinex and Tylenol. [facility] <MOJGAN Negrete - Last Filed: 12/24/24 19:39> [facility] Medical History (Updated 12/24/24 @ 19:06 by MOJGAN Negrete) Polycystic ovarian disease Frequent headaches PTSD (post-traumatic stress disorder) Back problem Home Medications ?Medication ?Instructions ?Recorded ?Last Taken ?Type NK 04/27/23 Unknown History Allergy/AdvReac Type Severity Reaction Status Date / Time venom-honey bee Allergy Severe THROAT Verified 12/24/24 17:34 SWELLING, HIVES bupropion (From Wellbutrin) AdvReac Mild Other Verified 12/24/24 17:34 Family History Other Anxiety Arthritis Depression Diabetes Mental disorder Myocardial infarction Suicide attempt Surgical History History of tonsillectomy Social History Smoking Status: Current every day smoker tobacco type: cigarettes and e-cigarettes quit status: considering quitting alcohol intake: never substance use type: marijuana what type of physical activity do you participate in: walking frequency: 3-4 times per week ROS <MOJGAN Negrete - Last Filed: 12/24/24 19:39> ROS ED ROS Narrative Constitutional: Negative for fever, chills. ENT: Positive for rhinorrhea, sore throat. Respiratory: Positive for cough. No chest pain. GI: Negative for abdominal pain, nausea, vomiting, diarrhea. EXAM <MOJGAN Negrete - Last Filed: 12/24/24 19:39> Physical Exam Narrative Exam Narrative: CONST: Patient sitting in no acute distress. EYES: Normal inspection. ENT: Moist mucous membranes and normal posterior oropharynx. There is a clear rhinorrhea. Pearly white TMs bilaterally. NECK: Normal inspection. No meningismus. RESP: No respiratory distress, CTAB. Dry cough. CVS: Regular rate and rhythm, no murmur, no gallop. ABD: Soft and nontender, no guarding or rebound, nondistended. SKIN: Color normal, no rash, warm, dry, intact. EXTREMITIES: Normal appearance, no pedal edema. NEURO: Alert and answering questions appropriately. PSYCH: Normal affect. Const Vital Signs: 12/24/24 17:28 Temperature 97.2 F L Temperature Source Axillary Pulse Rate 95 Respiratory Rate 18 Blood Pressure 125/77 H Blood Pressure Mean 93 Pulse Ox 96 Oxygen Delivery Method Room Air <Dr. Juna Ferreira MD - Last Filed: 12/24/24 19:43> Physical Exam Const Vital Signs: 12/24/24 17:28 Temperature 97.2 F L Temperature Source Axillary Pulse Rate 95 Respiratory Rate 18 Blood Pressure 125/77 H Blood Pressure Mean 93 Pulse Ox 96 Oxygen Delivery Method Room Air MDM <MOJGAN Negrete - Last Filed: 12/24/24 19:39> [facility] Narrative Medical decision making narrative: Patient's constellation of symptoms including mild conjunctivitis, rhinorrhea, sneezing, and cough are consistent with a viral upper respiratory infection. Symptoms have been ongoing for 6 days. She appears well and nontoxic and is afebrile with normal vital signs. She does not have any signs of bacterial infection that would warrant antibiotics, no signs of bacterial conjunctivitis, strep throat, otitis media etc.. She is not hypoxic and her lungs are clear so I do not think a chest x-ray is indicated. I discussed that this is most likelya viral illness and she can take ikki-jql-uhujmty medications as needed. She was discharged in stable condition. <Dr. Juan Ferreira MD - Last Filed: 12/24/24 19:43> [facility] Narrative Medical decision making narrative: Patient's constellation of symptoms including mild conjunctivitis, rhinorrhea, sneezing, and cough are consistent with a viral upper respiratory infection. Symptoms have been ongoing for 6 days. She appears well and nontoxic and is afebrile with normal vital signs. She does not have any signs of bacterial infection that would warrant antibiotics, no signs of bacterial conjunctivitis, strep throat, otitis media etc.. She is not hypoxic and her lungs are clear so I do not think a chest x-ray is indicated. I discussed that this is most likelya viral illness and she can take nwyl-pmk-tgkvbkm medications as needed. She was discharged in stable condition. I have personally performed a face to face assessment of the patient and have reviewed the GERMAN Note. I performed a substantive portion of the visit including all aspects of the following. My boyd findings include: History is 29-year-old female URI symptoms for the last 6 days or so. With nasal and eye drainage. Was seen in urgent care was placed on eyedrops. Patient states I know I need the antibiotic. Exam is [well-appearing 29-year-old female. Vital signs stable afebrile. No acute distress. H EENT exam pupils round react light. Her motions are intact. Currently there is no injection has no discharge. There is no orbital or periorbital cellulitis. There is no preauricular lymphadenopathy. Posterior pharynx is normal. There is no erythema or exudate. She has no choking swelling or breathing. No stridor or drooling. Clear rhinorrhea from her nose TMs are normal. Neck nontender no lymphadenopathy. Lungs clear to auscultation. Heart regular rhythm no murmur. Chest wall ribs nontender. Abdomen soft nontender. Patient moving all 4 extremities. Normal range of motion. Nontender no edema. Skin no rashes. Back nontender. Neurologically she is awake alert. Answer question following commands.] Medical Decision Making [had a discussion with the patient explaining that this is a virus. She did not need an antibiotic. She Requesting oral antibiotics I explained to her there would be no reason to do that at this time this is viral there is no signs of this being a bacterial infection. She will be discharged to home.] Other additions or changes: [None] Discharge Plan Triage Chief Complaint: Sore Throat ED Midlevel Provider: Alma Curtis ED Provider: Juan Ferreira Dx/Rx/DC Orders Clinical Impression: Acute URI Instructions: Adult Self-Care for Colds Prescriptions: No Action NK Primary Care Provider: Care Physician,No Primary Referrals: NOT,DEFINED [Non-Staff] - Activity Restrictions/Additional Instructions: Your symptoms are consistent with a viral illness. Take Tylenol or Motrin as needed for fever or pain. You can use gqkg-nkd-zvdlnkt medications such as Mucinex or cough suppressants. The symptoms should improve on their own over time. Print Language: British Disposition Disposition: Home, Self Care What to do if you have Problems For any increased pain, shortness of breath, bleeding, nausea or vomiting, chestpain, or any unexpected problems, contact your Primary Care Provider. Call [facility] ([phone]) or report to the closest Emergency Room. Call 911 if necessary. 12/24/241938 <Electronically signed by Alma ULRICH> Cosigner Signature (if applicable): 12/24/241942 <Electronically signed by Juan Ferreira MD> CC: No Primary Care Physician ~ Signed [facility] Work Phone: 1(696) 589-976908-14-2025 History of Present illness Narrative* Yo Medina MD - 12/23/2024 7:39 PM EDT URGENT CARE [facility] Apple Jeter is a 29 year old female. Patient presents with: Eye Problem: Bila eye drainage and crusting, bilat eyes redness x 3 days Ear Problem: Left ear pain and drainage x 2 Nasal Congestion: Nasal congestion and pressure x 3 days Patient presents with concern for pinkeye. She has had copious drainage. Cold symptoms began 3 to 4days ago and include nasal congestion, rhinorrhea, hoarse voice, sore throat, cough. Denies fever, shortness of breath, wheezing. She has tried using ibuprofen and clear eyedrops. She denies history of seasonal allergies. Eye Problem Associated symptoms include congestion. Ear Problem Nasal Congestion Associated symptoms include congestion and ear pain. Review of Systems HENT: Positive for congestion and ear pain. Objective BP 111/64 Pulse 104 Temp 37.1 C (98.8 F) Resp 22 Wt 120 kg (264 lb 8.8 oz) LMP 10/23/2024(Exact Date) SpO2 98% BMI 42.70 kg/m Physical Exam Constitutional: General: She is not in acute distress. Comments: Accompanied by her dog/support animal HENT: Right Ear: Tympanic membrane and ear canal normal. Left Ear: Tympanic membrane and ear canal normal. Nose: Congestion present. Right Sinus: No maxillary sinus tenderness or frontal sinus tenderness. Left Sinus: No maxillary sinus tenderness or frontal sinus tenderness. Mouth/Throat: Mouth: Mucous membranes are moist. Pharynx: Posterior oropharyngeal erythema present. No oropharyngeal exudate. Eyes: General: Right eye: Discharge present. Left eye: Discharge present. Extraocular Movements: Extraocular movements intact. Conjunctiva/sclera: Right eye: Right conjunctiva is injected. Left eye: Left conjunctiva is injected. Pupils: Pupils are equal, round, and reactive to light. Cardiovascular: Rate and Rhythm: Normal rate and regular rhythm. Heart sounds: No murmur heard. Pulmonary: Effort: No respiratory distress. Breath sounds: No wheezing, rhonchi or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
== END 2024-12-24 19:54 | disposition home or self-care (01) ==
PROVIDERS: Emergency Provider Emergency Medicine; Visit Provider Emergency Medicine
DX: J06.9 Acute upper respiratory infection, unspecified (principal); F17.210 Nicotine dependence, cigarettes, uncomplicated; F17.290 Nicotine dependence, other tobacco product, uncomplicated
CPT/HCPCS: 99282